=== PATIENT | male | born 1945 | race Caucasian/White ===

== ENCOUNTER 2019-12-22 10:32 | Outpatient (CLI) | payer MEDICARE, SELFPAY ==
[2019-12-22 11:15] VITALS: PULSE 74; O2SAT 88
[2019-12-22 11:20] VITALS: PULSE 72; O2SAT 91
[2019-12-22 11:25] VITALS: PULSE 116; O2SAT 86
[2019-12-22 11:27] LABS: Alveolar/Arterial O2 Gradient 34.3 mmHg; Base Excess ABG 1.6 mEq/l (+/-2.0); Fractional Inspired Oxygen 21 %; Oxygen Content ABG 18.4 %vol (16.0-22.0); Oxygen Saturation ABG 93.9 % (95.0-100.0); Oxyhemoglobin 92.7 % THb (90.0-100.0); PCO2 ABG 40.3 mmHg (35.0-45.0); PO2 ABG 67.2 mmHg (80.0-100.0); Total Hemoglobin 14.1 g/dL (12.0-18.0); pH ABG 7.428 (7.350-7.450)
[2019-12-22 11:30] VITALS: PULSE 118; O2SAT 89
[2019-12-22 11:32] LABS: Device NASAL CANNULA; Site Drawn RIGHT RADIAL
[2019-12-22 11:35] VITALS: PULSE 120; O2SAT 91
[2019-12-22 11:45] VITALS: PULSE 76; O2SAT 91
--- NOTE | 2019-12-22 11:59 | HOMEO2EVAL ---
Home Oxygen Evaluation RC: Home Oxygen (O2) Evaluation Start: 12/22/19 11:53 Freq: Status: Active Protocol: RPE Activity Type Activity Date Activity User E-Sign Co-Sign Detail Recorded Client Recorded Date Recorded By Document 12/22/19 11:20 DJO [id number] 12/22/19 11:58 DJO Document 12/22/19 11:25 DJO [id number] 12/22/19 11:58 DJO 12/22/19 12/22/19 11:20 11:25 Home O2 Evaluation Test Phase Resting Exercise Oxygen Delivery Nasal Cannula Nasal Cannula Oxygen Flow Rate (L/min) 1 1 Pulse Oximetry (90-100 %) 91 86 L Pulse Rate (60-100 beats/min) 72 116 H
== END 2019-12-22 10:33 | disposition home or self-care (01) ==
PROVIDERS: PCP Family Medicine; Visit Provider Internal Medicine Critical Care Medicine
DX: J43.9 Emphysema, unspecified (principal)
CPT/HCPCS: 36600; 82805; 94618

== ENCOUNTER 2021-04-01 08:38 | Inpatient (IN) | payer MEDICARE, SELFPAY ==
[2021-04-01] VITALS (35 sets, daily range): BP systolic 86–134; BP diastolic 52–83; PULSE 42–63; RESP 14–23; TEMP 36.1–36.7; O2SAT 94–100; BMI 44.4
--- NOTE | ~2021-04-01 | XR_ITS ---
EXAMINATION: XR chest 1V DATE: 04/01/2021 09:32 INDICATION: COPD TECHNIQUE: frontal view of the chest was obtained. COMPARISON: Chest radiograph dated 07/29/[address] dated 05/04/2019 FINDINGS: Increased lucency in the upper lung zones, left greater than right with associated architectural dist ortion consistent with given history of emphysema. Mild reticular opacities in the bilateral lower [place] ng zones consistent with atelectasis/scarring. No pleural effusion or pneumothorax. Heart size is nor mal. Enlargement of the central pulmonary arteries consistent with pulmonary arterial hypertension. S mall hiatal hernia which on prior CT contains fat. Several old healed left-sided rib fractures. IMPRESSION: 1. Emphysema with mild bibasilar atelectasis/scarring. 2. Enlargement of the central pulmonary arteries consistent with pulmonary arterial hypertension. Reviewed, dictated and finalized at location A. IMPRESSION: 1. Emphysema with mild bibasilar atelectasis/scarring. 2. Enlargement of the central pulmonary arteries consistent with pulmonary prateek rial hypertension.
--- NOTE | ~2021-04-01 | US_ITS ---
EXAMINATION: US renal BI DATE: 04/02/2021 10:31 INDICATION: Acute kidney injury. TECHNIQUE: Multiple ultrasound grayscale images of the kidneys were obtained. COMPARISON: CT abdomen and pelvis 05/04/2019 FINDINGS: The right kidney measures 11.0 x 6.1 x 5.4 cm. The left kidney measures 10.3 x 5.8 x 5.7 cm. The kidn eys demonstrate normal parenchymal echogenicity. There are cysts in the kidneys measuring up to 8.1 c m on the right. There is no hydronephrosis. The bladder is normal. IMPRESSION: 1. Normal kidney sizes. No hydronephrosis. Reviewed, dictated and finalized at location B.
--- NOTE | ~2021-04-01 | MR_ITS ---
EXAMINATION: MR brain/brain stem wo con DATE: 04/02/2021 10:00 INDICATION: Right hemiparesis. Neurological symptoms. TECHNIQUE: Magnetic resonance imaging (MRI) of the brain and brainstem was performed without intraven ous contrast. Sequences included sagittal and axial T1-weighted FSE, axial diffusion-weighted FS EPI, axial T2*-weighted GRE, axial T2-weighted FLAIR Propeller, and axial T2-weighted Propeller. Apparent diffusion coefficient (ADC) maps were created. COMPARISON: Head CT 04/01/2021, brain MRI 07/29/2018 FINDINGS: There are small acute infarcts in the left frontal lobe and left frontoparietal region. The re are scattered areas of nonspecific increased T2-weighted signal intensity in the cerebral white ma tter. There are small old infarcts in left parietal lobe. There is an old lacunar infarct in right ca udate nucleus. There is no intracranial hemorrhage or abnormal mass lesion. The ventricles are normal in size. The orbits are normal. There are mucous retention cysts in the maxillary sinuses. There is mild mucosal thickening in the paranasal sinuses. IMPRESSION: 1. Small acute infarcts in the left frontal lobe and left frontoparietal region. 2. Small old infarcts in left parietal lobe and right caudate nucleus. 3. Moderate nonspecific cerebral white matter disease, which likely represents chronic small vessel i schemic disease. Reviewed, dictated and finalized at location B. IMPRESSION: 1. Small acute infarcts in the left frontal lobe and left frontoparietal region . 2. Small old infarcts in left parietal lobe and right caudate nucleus. 3. Moderate nonspecific cerebral white matter disease, which likely represents chronic small vessel ischemic disease.
--- NOTE | ~2021-04-01 | CT_ITS ---
EXAMINATION: CT brain wo con DATE: 04/01/2021 09:26 INDICATION: Stroke with right hand numbness. TECHNIQUE: Computed tomography (CT) of the head was performed without intravenous contrast. Sagittal and coronal reconstructions were performed. The mA was adjusted according to patient size. Iterative reconstruction technique was employed. The dose-length product was 605.33 mGy-cm. COMPARISON: Brain MR dated 07/29/18 FINDINGS: No acute intracranial hemorrhage, acute infarction or abnormal extra axial fluid collection. Small ol d lacunar infarct in the left frontal chu radiata. There is mild to moderate scattered white matte r hypoattenuation consistent with chronic small vessel ischemic disease. Symmetric prominence of the sulci and ventricles consistent with mild age-appropriate diffuse cerebral volume loss. No mass/mass effect. The orbits, paranasal sinuses and mastoid air cells are normal. IMPRESSION: 1. No acute intracranial process. 2. Small old lacunar infarct in the left frontal chu radiata. 3. Age-related changes including mild diffuse volume loss and mild to moderate scattered white matter hypoattenuation. Reviewed, dictated and finalized at location A.
--- NOTE | ~2021-04-01 | US_ITS ---
EXAMINATION: US carotid duplex BI DATE: 04/02/2021 10:31 INDICATION: Right hemiparesis. TECHNIQUE: Grayscale, color Doppler, and pulsed Doppler images of the cervical carotid arteries were obtained. The degree of vessel stenosis is placed in one of the following categories: normal, <50%, 5 0-69%, >=70% but less than near-occlusion, near-occlusion, or total occlusion. Note that percent sten osis relative to normal distal artery lumen diameter is indirectly measured from velocity measurement s as described by José Miguel, et al. Radiology 2003; 229:340-346. COMPARISON: Ultrasound 07/29/2018 FINDINGS: RIGHT: The right common carotid artery (CCA) peak systolic velocity (PSV) is 61 cm/s. The right internal car otid artery (ICA) PSV is 62 cm/s. The right ICA end-diastolic velocity (EDV) is 16 cm/s. The right IC A/CCA PSV ratio is 1.0. Grayscale and color Doppler images yield an estimate of <50% diameter reducti on from plaque in the ICA. There is antegrade flow in the right vertebral artery. LEFT: The left CCA PSV is 46 cm/s. The left ICA PSV is 70 cm/s. The left ICA EDV is 19 cm/s. The left ICA/C CA PSV ratio is 1.5. Grayscale and color Doppler images yield an estimate of <50% diameter reduction from plaque in the ICA. There is antegrade flow in the left vertebral artery. IMPRESSION: 1. <50% stenosis in the right internal carotid artery. 2. <50% stenosis in the left internal carotid artery. Reviewed, dictated and finalized at location B.
--- NOTE | 2021-04-01 09:06 | ECG_ITS ---
Measurements Intervals [place] Rate: 54 P: [place]: 0 QRS: -61 QRSD: 125 T: 33 QT: 403 QTc: 384 Interpretive Statements ATRIAL FIBRILLATION WITH SLOW VENTRICULAR RESPONSE LEFT AXIS DEVIATION LEFT BUNDLE BRANCH BLOCK BASELINE ARTIFACT- I, II, III, AVR, AVL, AVF, V1-V6 ABNORMAL ECG Electronically Signed On 04-01-2021 14:18:37 CDT by Herberth Martinez D.O.
[2021-04-01 09:20] LABS: Basophils Absolute Auto 0.1 K/mm3 (0.0-0.1); Basophils Percent Auto 0.7 % (0.2-1.2); Eosinophils Absolute Auto 0.1 K/mm3 (0-0.3); Eosinophils Percent Auto 1.6 % (0-4.4); Hematocrit 47.1 % (42.0-52.0); Immature Granulocyte Absolute 0.02 K/mm3 (0.00-0.031); Immature Granulocyte Percent A 0.3 % (0-0.5); Lymphocytes Absolute Auto 1.47 K/mm3 (0.9-3.2); Lymphocytes Percent Auto 19.3 % (18.3-44.2); Mean Corpuscular HGB Conc 31.8 g/dl (32-36); Mean Corpuscular Hemoglobin 32.1 pg (26-34); Mean Corpuscular Volume 100.6 fl (80-100); Mean Platelet Volume 10.6 fl (7.4-10.4); Monocytes Absolute Auto 0.8 K/mm3 (0.1-0.6); Monocytes Percent Auto 10.3 % (2.6-8.5); Neutrophils Absolute Auto 5.2 K/mm3 (1.3-6.7); Neutrophils Percent Auto 67.8 % (45.5-73.1); Platelet Count Result 181 k/mm3 (150-375); Red Blood Count 4.68 M/mm3 (4.6-6.20); Red Cell Distribution Width 15.3 % (11.5-14.5); White Blood Count 7.6 K/mm3 (4.5-10.0)
[2021-04-01 09:29] LABS: INR 1.5; Prothrombin Time 18.3 Seconds (11.1-14.7)
[2021-04-01 09:30] LABS: Partial Thromboplastin Time 30.5 SECONDS (22.3-36.8)
[2021-04-01 09:34] LABS: Glucose Point of Care 105 mg/dl (65-105)
[2021-04-01 09:36] LABS: Anion Gap 5 mmol/L (8-16); Blood Urea Nitrogen 37 mg/dL (9-20); Calcium 9.6 mg/dL (8.4-10.2); Carbon Dioxide 29 mmol/L (22-30); Chloride 106 mmol/L (98-107); Estimated CRCL calculation 38 ml/min; Estimated Glomerular Filt Rate 29; Glucose 106 mg/dL (75-110); Potassium 4.6 mmol/L (3.4-5.0); Sodium 140 mmol/L (137-145)
[2021-04-01 09:48] LABS: Troponin I < 0.012 ng/mL (0.000-0.034)
[2021-04-01] MEDS: SODIUM CHLORIDE 0.9% IV 500 ML 999 ML (10:21)
[2021-04-01] MEDS: SODIUM CHLORIDE 0.9% IV 1,000 ML 999 ML IV CONT (10:34)
--- NOTE | 2021-04-01 12:19 | ED.GENADULT ---
HPI - General Adult General Chief complaint: Neuro Symptoms/Deficit Stated complaint: R HAND NUMBNESS Time Seen by Provider: 04/01/21 10:19 Source: patient, family, RN notes reviewed and old records reviewed Mode of arrival: ambulatory Limitations: no limitations History of Present Illness HPI narrative: Patient is 76-year-old male who presents to emergency department for evaluation of right upper extremity weakness noticed this morning patient had been painting with this arm yesterday patient notes he had felt fine yesterday on arrival patient presents with bradycardia and low blood pressure patient denies any vomiting diarrhea illness injury or trauma or similar occurrence in the past patient denying any pain Related Data Home Medications Medication Instructions Recorded Confirmed aspirin 81 mg tablet,delayed 81 mg PO DAILY 09/21/19 04/01/21 release cholecalciferol (vitamin D3) 10 400 unit PO DAILY 09/21/19 04/01/21 mcg (400 unit) capsule cyanocobalamin (vitamin B-12) 1,000 mcg PO DAILY 09/21/19 04/01/21 1,000 mcg tablet magnesium oxide 500 mg tablet 500 mg PO DAILY 09/21/19 04/01/21 omeprazole 20 mg capsule,delayed 20 mg PO DAILY 09/21/19 04/01/21 release potassium chloride 20 mEq 20 meq PO DAILY 09/21/19 04/01/21 tablet,extended release furosemide 40 mg tablet 40 mg PO BID tablet 09/30/19 04/01/21 calcium carbonate 500 mg calcium 500 mg PO DAILY 12/14/19 04/01/21 (1,250 mg) capsule rosuvastatin 40 mg tablet 40 mg PO DAILY 03/23/20 04/01/21 Allergies Allergy/AdvReac Type Severity Reaction Status Date / Time levofloxacin Allergy Unknown unk Verified 04/01/21 09:05 Penicillins Allergy Unknown unk Verified 04/01/21 09:05 [facility] Past Medical History Medical History (Updated 04/01/21 @ 12:34 by Kirill Salceod PA-C) Acute sinusitis Candidiasis of other urogenital sites Chronic kidney disease (CKD) stage G3b/A1, moderately decreased glomerular filtration rate (GFR) between 30-44 mL/min/1.73 square meter and albuminuria creatinine ratio less than 30 mg/g Chronic respiratory failure COPD exacerbation History of tobacco abuse Obstructive sleep apnea Severe chronic obstructive pulmonary disease Supplemental oxygen dependent Family History Family History (Updated 05/28/19 @ 14:05 by DOCTOR UNKNOWN) Mother Patient's mother is , Onset Age: 85 Diabetes mellitus Hypertension Sibling Patient's brother is , Onset Age: 64 Family history of cardiovascular disease Father Family history of primary malignant neoplasm of liver, Onset Age: 31 Social History Social History Social History: . Smoking packs per day: 1 Smoking cigarettes per day: 20.0 Years smoked: 40 Smoking pack-years: 40.00 Smoking status: Former smoker Tobacco type: cigarettes Smoking end date: 11/10/14 Alcohol intake: never Gender identity (if verbalized by the patient): Male Exam Narrative: Exam Narrative: GENERAL: Well-appearing, obese, and in no acute distress. HEAD: Normocephalic, atraumatic. EYES: PERRLA and EOMI. ENT: Nares clear, no rhinorrhea or epistaxis. Mucous membranes moist. NECK: Supple. No adenopathy or masses. No carotid bruits or JVD CHEST: Clear to auscultation. No respiratory distress. No wheezes rales or rhonchi HEART: Irregularly irregular rate and rhythm. No murmur heard. Normal peripheral pulses. ABDOMEN: Soft, nontender, nondistended EXTREMITIES: Normal range of motion. No edema. SKIN: Warm, dry, no rash. NEURO: No focal deficits. Alert and oriented x3. Cranial nerves II through XII grossly intact. Normal speech. Cerebellar intact. Equal fur matcher. Motor and sensory intact and symmetrical in the extremities. PSYCH: Normal mood and affect. Course Course Emergency Course: Patient presented with bradycardia atrial fibrillation likely attributed to acute kidney injury has been hydrated
--- NOTE | 2021-04-01 14:19 | ADMGEN ---
This patient, Yosef Rodríguez, was admitted to Medical Room 343-01. Patient/family oriented to hospital policies and general routines including ID bracelet, bed and alarms, visiting hours, pain management, procedures, bathroom and other care routines, personal items, smoking policy, room service/diet, and visiting hours. Information on how to activate the Rapid Response Team has been discussed. Patient/Family are encouraged to report perceived risks to care and to ask questions if they do not understand what they are told or what they should do.
[2021-04-01] MEDS: LACTATED RINGERS 1,000 ML 75 ML IV CONT (14:21)
--- NOTE | 2021-04-01 15:48 | PM.IMHP ---
H&P: HPI History of Present Illness Date/Time: 04/01/21 15:48 this is a 76-year-old male patient with past medical history of atrial fibrillation and congestive heart failure. The patient takes his medications as prescribed. The patient was painting a door yesterday and was taking his time pain the door. It was hot outside and he did have his air on. The patient was diaphoretic yesterday. The patient has COPD and has chronic hypoxia. The patient wears oxygen at 1 to 1.5 L daily. The patient woke up this morning and had numbness and tingling to his right hand and some pain to his right shoulder this morning. He had no slurred speech or difficulty walking. No facial droop. The patient stated that he had a TIA in the past. His symptoms have resolved. He debated on whether not to come to the emergency room or not. He stated that he was told last time that he should come to the ER if he has any type of symptoms immediately. He had no nausea vomiting or diarrhea. No fever here. Patient was found to be in AFib with bradycardia. And low blood pressure. Patient has a history of having some chronic kidney disease. Creatinine 2.2 and his last creatinine was 1.55. His baseline is anywhere from 1.5-1.7. The patient has chronic renal failure stage 3. His story editor had been called per ED provider and suggested that the Coreg Dose be cut in half. the patient stated he did have some mild dizziness this morning. No chest pain. troponin was found to be negative. Chest x-ray was read as emphysema mild bibasilar atelectasis/scarring. Enlargement of the central pulmonary arteries consistent pulmonary artery hypertension. Head CT was read as no acute intracranial process. Small old lacunar infarction in left frontal chu radiata. age-related changes . patient was given IV fluids in the emergency room. The patient no longer has any numbness or tingling or any that showed a pain. Patient is being admitted to observation on the date of service of 04/01/2021. Chief Complaint: right on numbness Review of Systems Review of Systems: All systems reviewed & are unremarkable except as noted in HPI and below Constitutional: Constitutional: Reports as per HPI and Reports no additional constitutional complaints Eyes: Eyes: Reports as per HPI and Reports no additional eye complaints ENT: Reports system reviewed and no additional complaints, except as documented and Reports Normal hearing present Cardiovascular: Cardiovascular: Reports no additional cardiovascular complaints Respiratory: Respiratory: Reports no additional respiratory complaints and Reports no additional respiratory complaints Gastrointestinal: Gastrointestinal: Reports as per HPI and Reports no additional gastrointestinal complaints Musculoskeletal: Musculoskeletal: Reports no additional musculoskeletal complaints Integumentary/Breasts: Skin/Breast: Reports system reviewed and no additional complaints, except as docu and Reports as per HPI Neurologic: Reports system reviewed and no additional complaints, except as documented, Reports as per HPI and Reports Normal hearing present Psychiatric: Psychiatric: Reports no additional psychiatric complaints and Reports as per HPI Endocrine: Endocrine: Reports no additional endocrine complaints Hematologic/Lymphatic: Hematologic/Lymphatic: Reports no additional hematologic/lymphatic complaints Allergic/Immunologic: Allergic/Immunologic: Reports no additional allergic/immunologic complaints [facility] Past Medical History Medical History (Updated 04/01/21 @ 16:03 by Kindra Kelsey NP) Acute sinusitis Atrial fibrillation Candidiasis of other urogenital sites Chronic kidney disease (CKD) stage G3b/A1, moderately decreased glomerular filtration rate (GFR) between 30-44 mL/min/1.73 square meter and albuminuria creatinine ratio less than 30 mg/g Chronic respiratory failure COPD exacerbation Emphysematous bleb History of CVA (cerebrovascular ac
[2021-04-01] MEDS: MAGNESIUM OXIDE 400 MG TABLET PO (16:45)
[2021-04-01] MEDS: CALCIUM CARBONATE (OSCAL) 500 MG TABLET 1000 MG PO (16:45)
[2021-04-01] MEDS: APIXABAN 5 MG TABLET PO (16:45)
[2021-04-01 19:05] LABS: Add Urine Microscopic? NO; Appearance Urine Clear (Clear); Bilirubin Urine Negative (Negative); Blood Urine Negative (Negative); Color Urine Yellow (Yellow); Glucose Urine UA Negative (Negative); Ketones Urine Negative (Negative); Leukocyte Esterase Ur Negative LEU/UL (Negative); Nitrate Urine Negative (Negative); Protein Urine Negative (Negative); Specific Grav Ur 1.014 (1.001-1.035); Urobilinogen Urine Negative mg/dL (<2.0)
[2021-04-01] MEDS: BUDESONIDE RESPULE NEB 0.5 MG/2 ML AMP INHALATION (19:57)
[2021-04-01] MEDS: FAMOTIDINE 20 MG/2 ML VIAL IV PUSH (20:27)
[2021-04-01] MEDS: AMITRIPTYLINE HCL 10 MG TABLET PO (20:27)
--- NOTE | 2021-04-01 21:35 | PHAR ---
Sangitaa 15 mcg/2 mL Solution For Nebulization see in Pharmacy and returned to 3 medical RN at window
[2021-04-02] VITALS (17 sets, daily range): BP systolic 112–130; BP diastolic 68–98; PULSE 35–61; RESP 14–18; TEMP 36.4–36.6; O2SAT 96–100
--- NOTE | 2021-04-02 | ECHO_ITS ---
Patient Info Name: Yosef Rodríguez Age: 76 years : 1945 Gender: Male Ht: 70 in Wt: 309 lbs BSA: 2.70 m2 HR: 61 bpm BP: 122 / 68 mmHg Heart Rhythm: Atrial Fibrillation Technical Quality: Poor Exam Date: 04/02/2021 8:22 AM Exam Location: [facility] Patient Status: Inpatient Admit Date: 04/01/2021 Staff Ordering Physician: Kindra Kesley NP Hydrodynamicist: Stella Richey RDCS Attending Provider: Jaci Oro MD Referring Physician: Low ABDI; Exam Type: CA echo dop color flow w con Study Info Indications - NEUROLOGICAL SYMPTOMS Complete two-dimensional, color flow and Doppler transthoracic echocardiogram is performed with contrast to opacify the left ventricle and to improve the deliniation of the left ventricle endocardial borders. Reason for Poor Study: patient body habitus Summary 1. Left ventricular chamber dimension is normal. 2. Left ventricular systolic function is normal, estimated at 60-65%. 3. Definity contrast injected to improve visualization. 4. Severe biatrial dilation. 5. Mild tricuspid, aortic and pulmonic regurgitation. Left Ventricle Left ventricular chamber dimension is normal. Left ventricular systolic function is normal, estimated at 60-65%. The left ventricular diastolic function is indeterminate. Definity contrast injected to improve visualization. Right Ventricle Right ventricular chamber dimension is normal. Left Atria Left atrial chamber dimension is severely enlarged. Right Atria Right atrial chamber dimension is severely enlarged. Aortic Valve The aortic valve is normal. There is mild aortic valve regurgitation. Pulmonic Valve The pulmonic valve is normal. There is mild pulmonic regurgitation. Mitral Valve The mitral valve has normal leaflets. Tricuspid Valve The tricuspid valve leaflets are normal. There is mild tricuspid valve regurgitation. Pericardium/Pleural The pericardium appears normal. Aorta The aortic root size at the sinus of Valsalva is normal. Left Ventricular Outflow Tract Name Value Normal LVOT 2D LVOT Diameter 2.05 cm LVOT Doppler LVOT Peak Gradient 2 mmHg LVOT Mean Gradient 1 mmHg LVOT VTI 22.27 cm LVOT VTI/AV VTI Ratio 0.67 LVOT Stroke Volume 73.47 ml LVOT CO 3.68 l/min LVOT CI 1.36 L/min/m2 Pulmonic Valve Name Value Normal RVOT Doppler RVOT Peak Gradient 3 mmHg PV Doppler PV Peak Gradient 4 mmHg Mitral Valve Name
[2021-04-02 05:48] LABS: Basophils Percent Auto 0.5 % (0.2-1.2); Eosinophils Absolute Auto 0.1 K/mm3 (0-0.3); Eosinophils Percent Auto 2.1 % (0-4.4); Hemoglobin 13.7 g/dL (14.0-18.0); Immature Granulocyte Absolute 0.02 K/mm3 (0.00-0.031); Immature Granulocyte Percent A 0.3 % (0-0.5); Lymphocytes Absolute Auto 1.43 K/mm3 (0.9-3.2); Lymphocytes Percent Auto 22.9 % (18.3-44.2); Mean Corpuscular HGB Conc 31.9 g/dl (32-36); Mean Corpuscular Volume 100.5 fl (80-100); Mean Platelet Volume 10.3 fl (7.4-10.4); Monocytes Absolute Auto 0.7 K/mm3 (0.1-0.6); Monocytes Percent Auto 10.4 % (2.6-8.5); Neutrophils Percent Auto 63.8 % (45.5-73.1); Platelet Count Result 150 k/mm3 (150-375); Red Blood Count 4.28 M/mm3 (4.6-6.20); Red Cell Distribution Width 15.1 % (11.5-14.5); White Blood Count 6.2 K/mm3 (4.5-10.0)
[2021-04-02 05:59] LABS: Lactic Acid Reflex 1.2 mmol/L (0.7-2.1)
[2021-04-02 06:01] LABS: Alanine Aminotransferase 17 U/L (4-50); Albumin Level 3.1 g/dL (3.5-5.1); Alkaline Phosphatase 79 U/L (38-126); Anion Gap 0 mmol/L (8-16); Aspartate Amino Transferase 25 U/L (17-59); Bilirubin,Total 0.7 mg/dL (0.2-1.3); Blood Urea Nitrogen 26 mg/dL (9-20); Calcium 8.8 mg/dL (8.4-10.2); Carbon Dioxide 27 mmol/L (22-30); Chloride 110 mmol/L (98-107); Estimated CRCL calculation 52 ml/min; Estimated Glomerular Filt Rate 42; Glucose 93 mg/dL (75-110); Potassium 3.8 mmol/L (3.4-5.0); Sodium 137 mmol/L (137-145)
[2021-04-02] MEDS: LACTATED RINGERS 1,000 ML 75 ML IV CONT (06:24)
[2021-04-02] MEDS: BUDESONIDE RESPULE NEB 0.5 MG/2 ML AMP INHALATION ×2 (07:49→19:54)
[2021-04-02] MEDS: PERFLUTREN LIPID MICROSPHERES 1.5 ML VIAL DILUTED TO 10 ML TOTAL VOLUME IV PUSH (09:05)
[2021-04-02] MEDS: CHOLECALCIFEROL 400 UNITS TABLET (VIT D) PO (09:11)
[2021-04-02] MEDS: MAGNESIUM OXIDE 400 MG TABLET PO ×2 (09:11→17:03)
[2021-04-02] MEDS: CYANOCOBALAMIN 1,000 MCG TABLET 1000 MCG PO (09:11)
[2021-04-02] MEDS: PANTOPRAZOLE 40 MG TABLET PO (09:11)
[2021-04-02] MEDS: allopurinoL 100 MG TABLET PO (09:11)
[2021-04-02] MEDS: APIXABAN 5 MG TABLET PO ×2 (09:11→17:02)
[2021-04-02] MEDS: CALCIUM CARBONATE (OSCAL) 500 MG TABLET 1000 MG PO ×3 (09:11→17:03)
[2021-04-02] MEDS: ROSUVASTATIN 10 MG TABLET 40 MG PO (09:11)
--- NOTE | 2021-04-02 14:04 | PM.IMPN ---
Progress Note: A&P Assessment and Plan (1) Acute CVA (cerebrovascular accident): Code(s): I63.9 - Cerebral infarction, unspecified Status: Acute Assessment and Plan: Presented with weakness of right upper extremity lasting approximately 5 hours, which has resolved. Head CT showed no acute intracranial process with evidence of small old lacunar infarct. Follow-up brain MRI showed small acute infarcts in the left frontal lobe and left frontoparietal region. He does not appear to have any deficits. Echocardiogram and carotid doppler reviewed. Appreciate neurology consultation Appreciate PT/OT eval. He has declined ST eval as he has no issues with dysphagia Will obtain lipid panel Administer aspirin. He takes aspirin 81 mg daily at home. (2) Atrial fibrillation: Code(s): I48.91 - Unspecified atrial fibrillation Status: Chronic Assessment and Plan: Telemetry reviewed. He is bradycardic down to the 30s, mostly ranging from 45-50. He is asymptomatic. Appreciate cardiology consultation Continue Eliquis Carvedilol is on hold given bradycardia. (3) Hyperlipidemia: Code(s): E78.5 - Hyperlipidemia, unspecified Status: Chronic Assessment and Plan: Check lipid panel Continue rosuvastatin 40 mg daily (4) Acute on chronic kidney failure: Code(s): N17.9 - Acute kidney failure, unspecified; N18.9 - Chronic kidney disease, unspecified Status: Acute Assessment and Plan: Baseline creatinine ranges from 1.5-1.7. Creatinine is elevated 2.21 arrival. Suspect prerenal etiology secondary to dehydration. Renal function has improved with IV fluids and creatinine is 1.6 today. Renal ultrasound reviewed with normal kidneys and no evidence of hydronephrosis. Discontinue IV fluids. Patient is tolerating oral intake. Monitor renal function closely and renally dose medications. (5) Acute dehydration: Code(s): E86.0 - Dehydration Status: Acute Assessment and Plan: Secondary to strenuous physical activity and poor oral intake, in combination with diuretics. He has been adequately rehydrated with IV fluids. Discontinue fluids. Encourage p.o. intake (6) Chronic respiratory failure: Code(s): J96.10 - Chronic respiratory failure, unspecified whether with hypoxia or hypercapnia Status: Acute Assessment and Plan: Multifactorial secondary to COPD, emphysematous bleb, ANTONIO. He is established with pulmonology. He is maintaining adequate oxygen saturations on 1 L per nasal cannula, consistent with his baseline Continue supplemental O2 as needed with goal saturation 90% or above (7) Congestive heart failure, unspecified: Code(s): I50.9 - Heart failure, unspecified Status: Acute Assessment and Plan: Appears clinically compensated. IV fluids discontinued. Monitor volume status closely Resume Lasix for tomorrow, as well as potassium supplementation Monitor intake and output Heart healthy diet (8) Essential (primary) hypertension: Code(s): I10 - Essential (primary) hypertension Status: Acute Assessment and Plan: Blood pressures were soft upon presentation. Blood pressures reviewed and are well controlled today. Last BP 122/68. Lisinopril, amlodipine and coreg on hold Monitor BP trends and adjust medication regimen as needed (9) Obstructive sleep apnea: Code(s): G47.33 - Obstructive sleep apnea (adult) (pediatric) Status: Acute Assessment and Plan: Continue BiPAP at night Subjective Date/time seen: 04/02/21 14:04 Interval history: Date of service: 04/02/2021 Yosef Rodríguez is a 76-year-old male with history of atrial fibrillation on chronic anticoagulation, CKD stage 3, chronic respiratory failure on chronic 1 L O2, history of CVA, and hyperlipidemia who is seen in follow-up for acute CVA. He is feeling well and has no compla
--- NOTE | 2021-04-02 14:15 | ECG_ITS ---
Measurements Intervals [place] Rate: 47 P: [place]: 0 QRS: -59 QRSD: 128 T: 74 QT: 421 QTc: 376 Interpretive Statements ATRIAL FIBRILLATION WITH SLOW VENTRICULAR RESPONSE LEFT AXIS DEVIATION LEFT BUNDLE BRANCH BLOCK BASELINE WANDER- I, III, AVR, AVL, AVF, V1-V3 ABNORMAL ECG Electronically Signed On 04-02-2021 14:41:47 CDT by Herberth Martinez D.O.
--- NOTE | 2021-04-02 14:55 | PM.CNCAR ---
Assessment and Plan Assessment and plan (1) Bradycardia: Code(s): R00.1 - Bradycardia, unspecified Status: Acute Assessment and Plan: Atrial fibrillation with slow ventricular response per EKG. Patient is asymptomatic with this bradycardia denying lightheadedness, dizziness, syncope. This is likely not a new problem as patient states he sometimes notes that his heart rate is in the 30s and 40s when he checks his heart rate at home. He was on carvedilol at home which has been stopped due to his hypotension and bradycardia. I would continue to hold carvedilol at this time. We will continue to monitor him on telemetry. (2) Atrial fibrillation: Code(s): I48.91 - Unspecified atrial fibrillation Status: Chronic Assessment and Plan: Chronic atrial fibrillation on systemic anticoagulation with apixaban. He is rate controlled and in fact bradycardic at times despite any pharmacologic agents. (3) Congestive heart failure, unspecified: Code(s): I50.9 - Heart failure, unspecified Status: Acute Assessment and Plan: Echocardiogram in November of 2016 demonstrated a left ventricular ejection fraction of 66% with grade 3-4 diastolic dysfunction. Repeat echocardiogram today demonstrated a similar ejection fraction of 60-65%. He was on furosemide 40 mg b.i.d. buy this was held due to his hypotension and dehydration and has now been resumed. We will continue to monitor clinical signs of CHF, BMP. (4) Hyperlipidemia: Code(s): E78.5 - Hyperlipidemia, unspecified Status: Chronic Assessment and Plan: Lipid panel from December 2019 total cholesterol 239, HDL 26, triglycerides 109, LDL 192. Continue rosuvastatin 40 mg daily. Will obtain lipid panel at next office visit in about 1 month. (5) Acute on chronic kidney failure: Code(s): N17.9 - Acute kidney failure, unspecified; N18.9 - Chronic kidney disease, unspecified Status: Acute Assessment and Plan: Stage III CKD with baseline creatinine 1.5 to 1.7. serum creatinine 2.2 on arrival down trending to 1.6 today. IV fluids have been stopped at this point and furosemide has been resumed. Renal ultrasound normal. We will continue to monitor BMP daily. (6) Acute CVA (cerebrovascular accident): Code(s): I63.9 - Cerebral infarction, unspecified Status: Acute Assessment and Plan: Patient presenting with right-sided upper extremity weakness and numbness. MRI demonstrated: 1. Small acute infarcts in the left frontal lobe and left frontoparietal region. 2. Small old infarcts in left parietal lobe and right caudate nucleus. 3. Moderate nonspecific cerebral white matter disease, which likely represents chronic small vessel ischemic disease. Will appreciate Neurology consultation. (7) Acute dehydration: Code(s): E86.0 - Dehydration Status: Acute Assessment and Plan: Probably secondary to poor oral intake, diuretics. Patient has been rehydrated with IV fluids and Kidney function is normalizing per laboratory studies. History of Present Illness History of Present Illness Consult date/time: Date of service 04/02/21 14:55 cardiology consultation for bradycardia. This is a 76-year-old male with a past medical history of atrial fibrillation on anticoagulation, hypertension, diastolic heart failure, COPD on 1 L home O2, ANTONIO on BiPAP, dyslipidemia, CVA, morbid obesity. He initially presented through the emergency department with complaints of right-sided weakness starting yesterday morning. He states that when he woke up he took off his BiPAP and attempted to place on the bedside table but noticed that his right hand was too weak to do so and also notes that his right arm and hand were numb. Given his past experience with a CVA he proceeded to the emergency room for evaluation. He underwent a stroke evaluation and MRI performed on 04/01/2021 showed acute small infarct
[2021-04-02] MEDS: ASPIRIN 81 MG ENTERIC TABLET PO (14:58)
[2021-04-02] MEDS: POTASSIUM CHLORIDE 20 MEQ TABLET.ER PO (17:03)
--- NOTE | 2021-04-02 17:29 | WPDNEURCNPN ---
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 Atrial fibrillation 2. Congestive heart failure 3. COPD with chronic hypoxia and does wear oxygen at 1 to 1.5 later daily he developed numbness and tingling to his right hand and pain to his right shoulder in the morning with no slurred speech or difficulties in walking he has had TIA in the past by the time he came the symptomatology was resolved he had no associated generalized symptomatology in the emergency room he was found to be in AFib with bradycardia and low blood pressure along with he has the history of chronic renal disease with creatinine 2.2 has been in chronic renal failure stage 3 cardiologists for called from the emergency room and he was started on Coreg the dose has to be cut in half his troponins were negative chest x-ray was compatible with emphysema with mild bibasilar atelectasis and enlargement of the central pulmonary arteries consistent with the pulmonary artery hypertension but the CT scan of the head was negative for any acute process except the small old lacunar infarct in left frontal coronal radiata by the time he came to the floor he had no more tingling and numbness, evaluation up until now documented echocardiogram with severe by a marcela at [facility] enlargement with mild tricuspid and aortic and pulmonic regurgitation MRI of the brain with small acute infarct in the left frontal lobe and left frontoparietal region in addition to old infarct in left parietal lobe and right caudate nucleus carotid ultrasound with less than 50% stenosis bilaterally and renal her ultrasound negative routine lab not significant, 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 already for atrial fibrillation with slow ventricular response as per EKG patient is already on systemic anticoagulation with apixaban his ejection fraction is 60 to 65% and the furosemide was Ho held because of the hypotension and dehydration is stills cholesterol is high with a HDL only 26 Review of Systems Review of Systems: All systems reviewed & are unremarkable except as noted in HPI and below PMFSH Past Medical History Medical History Acute sinusitis Atrial fibrillation Candidiasis of other urogenital sites Chronic kidney disease (CKD) stage G3b/A1, moderately decreased glomerular filtration rate (GFR) between 30-44 mL/min/1.73 square meter and albuminuria creatinine ratio less than 30 mg/g Chronic respiratory failure COPD exacerbation Emphysematous bleb History of CVA (cerebrovascular accident) History of tobacco abuse Hyperlipidemia Obstructive sleep apnea Severe chronic obstructive pulmonary disease Supplemental oxygen dependent Surgical History Surgical History H/O foot surgery Hammer toe surgery on the 2nd and 3rd toe on the right foot. H/O hernia repair History of appendectomy History of lung surgery extraction of a blood that was grapefruit size from the right lung. Family History Family History Mother Patient's mother is , Onset Age: 85 Diabetes mellitus Hypertension Sibling Patient's brother is , Onset Age: 64 Family history of cardiovascular disease Father Family history of primary malignant neoplasm of liver, Onset Age: 31 Social History Social History Social History: . the patient's Annabel is a durable power client server developer for healthcare. The patient desires to be a full code. They have 2 children together. 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
[2021-04-02] MEDS: AMITRIPTYLINE HCL 10 MG TABLET PO (21:11)
[2021-04-03] VITALS (13 sets, daily range): BP systolic 124–142; BP diastolic 79–91; PULSE 37–109; RESP 16–20; TEMP 35.8–36.2; O2SAT 90–100
[2021-04-03] MEDS: BUDESONIDE RESPULE NEB 0.5 MG/2 ML AMP INHALATION ×2 (08:23→20:19)
[2021-04-03 08:58] LABS: Hematocrit 44.5 % (42.0-52.0); Hemoglobin 14.1 g/dL (14.0-18.0)
[2021-04-03] MEDS: PANTOPRAZOLE 40 MG TABLET PO (09:06)
[2021-04-03] MEDS: allopurinoL 100 MG TABLET PO (09:06)
[2021-04-03] MEDS: ASPIRIN 81 MG ENTERIC TABLET PO (09:06)
[2021-04-03] MEDS: APIXABAN 5 MG TABLET PO ×2 (09:06→16:30)
[2021-04-03] MEDS: ROSUVASTATIN 10 MG TABLET 40 MG PO (09:06)
[2021-04-03] MEDS: CALCIUM CARBONATE (OSCAL) 500 MG TABLET 1000 MG PO ×3 (09:06→16:30)
[2021-04-03] MEDS: CYANOCOBALAMIN 1,000 MCG TABLET 1000 MCG PO (09:06)
[2021-04-03] MEDS: MAGNESIUM OXIDE 400 MG TABLET PO ×2 (09:06→16:30)
[2021-04-03] MEDS: CHOLECALCIFEROL 400 UNITS TABLET (VIT D) PO (09:06)
[2021-04-03] MEDS: FUROSEMIDE 40 MG TABLET PO ×2 (09:06→16:30)
[2021-04-03 09:11] LABS: Anion Gap 6 mmol/L (8-16); Blood Urea Nitrogen 23 mg/dL (9-20); Carbon Dioxide 30 mmol/L (22-30); Chloride 106 mmol/L (98-107); Estimated CRCL calculation 59 ml/min; Estimated Glomerular Filt Rate 50; Glucose 145 mg/dL (75-110); Potassium 4.3 mmol/L (3.4-5.0); Sodium 142 mmol/L (137-145)
--- NOTE | 2021-04-03 10:03 | WPDNEUROPN ---
Objective Data Vital Signs Vital Signs: Vital Signs - 24 hr 04/02/21 12:00 04/02/21 15:00 04/02/21 16:00 Temperature 36.4 C L Pulse Rate 35 L 61 50 L Respiratory Rate 16 Blood Pressure 112/98 H Pulse Oximetry 97 04/02/21 19:56 04/02/21 20:00 04/02/21 20:02 Temperature Pulse Rate 55 L 43 L 51 L Respiratory Rate 16 16 Blood Pressure Pulse Oximetry 96 98 04/02/21 21:12 04/02/21 23:09 04/03/21 00:00 Temperature 36.6 C Pulse Rate 54 L 52 L 37 L Respiratory Rate 16 Blood Pressure 130/86 Pulse Oximetry 98 98 04/03/21 04:00 04/03/21 05:37 04/03/21 08:00 Temperature 36.2 C L Pulse Rate 37 L 53 L 48 L Respiratory Rate 18 Blood Pressure 130/79 Pulse Oximetry 100 04/03/21 08:26 04/03/21 08:36 Temperature Pulse Rate 48 L 43 L Respiratory Rate 16 20 Blood Pressure Pulse Oximetry 98 Intake/Output Intake/Output: Intake & Output 03/31/21 04/01/21 04/02/21 04/03/21 23:59 23:59 23:59 23:59 Intake Total 2730 2360 780 Output Total 200 750 150 Balance 2530 1610 630 Meds/Results Medications: Active Medications Generic Name Dose Route Start Last Admin Trade Name Freq PRN Reason Stop Dose Admin Allopurinol 100 mg 04/02/21 09:00 04/03/21 09:06 Allopurinol 100 Mg Tablet PO 100 mg DAILY ALEXANDREA Administration Amitriptyline HCl 10 mg 04/01/21 21:00 04/02/21 21:11 Amitriptyline Hcl 10 Mg Tablet PO 10 mg HS ALEXANDREA Administration Apixaban 5 mg 04/01/21 17:00 04/03/21 09:06 Apixaban 5 Mg Tablet PO 5 mg BID ALEXANDREA Administration Aspirin 81 mg 04/02/21 14:25 04/03/21 09:06 Aspirin 81 Mg Enteric Tablet PO 81 mg QAM ALEXANDREA Administration Budesonide 0.5 mg 04/01/21 17:00 04/03/21 08:23 Budesonide Respule Neb 0.5 Mg/2 Ml Amp INHALATION 0.5 mg BID ALEXANDREA Administration Calcium Carbonate 1,000 mg 04/01/21 17:00 04/03/21 09:06 Calcium Carbonate (Oscal) 500 Mg Tablet PO 1,000 mg TID ALEXANDREA Administration Cyanocobalamin 1,000 mcg 04/02/21 09:00 04/03/21 09:06 Cyanocobalamin 1,000 Mcg Tablet PO 1,000 mcg DAILY ALEXANDREA Administration Dextrose 12.5 gm 04/01/21 12:36 Dextrose 50% 25 Gm/50 Ml Syringe IV PUSH PRN PRN Hypoglycemia Protocol Furosemide 40 mg 04/03/21 09:00 04/03/21 09:06 Furosemide 40 Mg Tablet PO 40 mg BID ALEXANDREA Administration Glucagon 1 mg 04/01/21 12:36 Glucagon For Inj 1 Mg Vial IM PRN PRN Hypoglycemia Protocol Ipratropium Lesage 0.5 mg 04/01/21 16:07 Ipratropium Br 0.02% Inh Soln 0.5 Mg/2.5 Ml Vial INHALATION Q6H PRN shortness of breath or wheezing Magnesium Oxide 400 mg 04/01/21 17:00 04/03/21 09:06 Magnesium Oxide 400 Mg Tablet PO 400 mg BID ALEXANDREA Administration Ondansetron HCl 4 mg 04/01/21 12:36 Ondansetron Inj 4 Mg/2 Ml Vial IV PUSH Q4H PRN Nausea Pantoprazole Sodium 40 mg 04/02/21 09:00 04/03/21 09:06 Pantoprazole 40 Mg Tablet PO 40 mg QAM ALEXANDREA Administration Potassium Chloride 20 meq 04/02/21 17:00 04/02/21 17:03 Potassium Chloride 20 Meq Tablet.Er PO 20 meq [id number] ALEXANDREA Administration Rosuvastatin Calcium 40 mg 04/02/21 09:00 04/03/21 09:06 Rosuvastatin 10 Mg Tablet PO 40 mg DAILY ALEXANDREA Administration Vitamin D 400 units 04/02/21 09:00 04/03/21 09:06 Cholecalciferol 400 Units Tablet (Vit D) PO 400 units DAILY ALEXANDREA Administration Radiology Results: ITS Impressions Head CT 04/01/21 09:30 IMPRESSION: 1. No acute intracranial process. 2. Small old lacunar infarct in the left frontal chu radiata. 3. Age-related changes including mild diffuse volume loss and mild to moderate scattered white matter hypoattenuation. Chest X-Ray 04/01/21 09:56 IMPRESSION: 1. Emphysema with mild bibasilar atelectasis/scarring. 2. Enlargement of the central pulmonary arteries consistent with pulmonary arterial hypertension. Brain MRI 04/02/21 10:11 ADRIAN
--- NOTE | 2021-04-03 14:31 | PM.IMPN ---
Progress Note: A&P Assessment and Plan (1) Acute CVA (cerebrovascular accident): Code(s): I63.9 - Cerebral infarction, unspecified Status: Acute Assessment and Plan: Presented with weakness of right upper extremity which has resolved. Head CT showed no acute intracranial process with evidence of small old lacunar infarct. Follow-up brain MRI showed small acute infarcts in the left frontal lobe and left frontoparietal region. He does not appear to have any neurologic deficits. Echocardiogram and carotid doppler reviewed. Appreciate neurology consultation Appreciate PT/OT eval. He has declined ST eval as he has no issues with dysphagia Continue aspirin and statin (2) Bradycardia: Code(s): R00.1 - Bradycardia, unspecified Status: Acute Assessment and Plan: He is in atrial fibrillation with HR typically in the 40-50s, but down to the low 30s. He is asymptomatic. Telemetry reviewed. Beta cyndie on hold Cardiology following. 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 Continue Eliquis. (4) Hyperlipidemia: Code(s): E78.5 - Hyperlipidemia, unspecified Status: Chronic Assessment and Plan: Lipid panel from February 2021 reviewed. Continue rosuvastatin 40 mg daily (5) Acute on chronic kidney failure: Code(s): N17.9 - Acute kidney failure, unspecified; N18.9 - Chronic kidney disease, unspecified Status: Acute Assessment and Plan: Baseline creatinine ranges from 1.5-1.7. Creatinine elevated at 2.2 on arrival. Suspect prerenal etiology secondary to dehydration. Renal function improved with IV fluid rehydration and creatinine is 1.4 today. Renal ultrasound reviewed with normal kidneys and no evidence of hydronephrosis. Monitor renal function closely and renally dose medications. (6) Acute dehydration: Code(s): E86.0 - Dehydration Status: Acute Assessment and Plan: Secondary to strenuous physical activity and poor oral intake, in combination with diuretics. He has been adequately rehydrated with IV fluids. IV fluids have been discontinued and he is tolerating p.o. intake (7) Chronic respiratory failure: Code(s): J96.10 - Chronic respiratory failure, unspecified whether with hypoxia or hypercapnia Status: Acute Assessment and Plan: Multifactorial secondary to COPD, emphysematous bleb, ANTONIO. He is established with pulmonology. He is maintaining adequate oxygen saturations on 1 L per nasal cannula, consistent with his baseline Continue supplemental O2 as needed with goal saturation 90% or above (8) Congestive heart failure, unspecified: Code(s): I50.9 - Heart failure, unspecified Status: Acute Assessment and Plan: Appears clinically compensated. Continue home Lasix and potassium supplementation Monitor intake and output Heart healthy diet (9) Essential (primary) hypertension: Code(s): I10 - Essential (primary) hypertension Status: Acute Assessment and Plan: Blood pressures were soft upon presentation. Blood pressures reviewed and are well controlled today. Last BP 124/91. Lisinopril, amlodipine and coreg on hold Monitor BP trends and adjust medication regimen as needed (10) Obstructive sleep apnea: Code(s): G47.33 - Obstructive sleep apnea (adult) (pediatric) Status: Acute Assessment and Plan: Continue BiPAP at night Subjective Date/time seen: 04/03/21 14:31 Interval history: Date of service: 04/03/2021 Yosef Rodríguez is a 76-year-old male with history of atrial fibrillation on chronic anticoagulation, CKD stage 3, chronic respiratory failure on chronic 1 L O2, history of CVA, and hyperlipidemia who is seen in fol
--- NOTE | 2021-04-03 15:19 | PM.PNCARD ---
Progress Note: A&P Assessment and Plan (1) Bradycardia: Code(s): R00.1 - Bradycardia, unspecified Status: Acute Assessment and Plan: Atrial fibrillation with slow ventricular response per EKG. Patient is asymptomatic with this bradycardia denying lightheadedness, dizziness, syncope. This is likely not a new problem as patient states he sometimes notes that his heart rate is in the 30s and 40s when he checks his heart rate at home. He was on carvedilol at home which has been stopped due to his hypotension and bradycardia. Telemetry is now demonstrating frequent events of bradycardia with heart rates down to as low as 26. Patient remains asymptomatic with these events. Discussed with patient and at the bedside that despite his lack of symptoms with bradycardic events pacemaker implantation is indicated in this setting due to high risk of syncope, injury, and unwanted bleeding. The patient is amenable to the plan of undergoing permanent pacemaker implantation during this hospitalization. We will need to hold his Eliquis and bridge him with heparin. I have held his Eliquis after today's p.m. dose and will start heparin drip in the morning. Plan is to undergo permanent pacemaker implantation this Friday with Dr. Joseph. (2) Atrial fibrillation: Code(s): I48.91 - Unspecified atrial fibrillation Status: Chronic Assessment and Plan: Chronic atrial fibrillation on systemic anticoagulation with apixaban. He is rate controlled and in fact bradycardic at times despite any pharmacologic agents. See above in regard to systemic anticoagulation in the setting of upcoming procedure plan (3) Congestive heart failure, unspecified: Code(s): I50.9 - Heart failure, unspecified Status: Acute Assessment and Plan: Echocardiogram in November of 2016 demonstrated a left ventricular ejection fraction of 66% with grade 3-4 diastolic dysfunction. Repeat echocardiogram today demonstrated a similar ejection fraction of 60-65%. On furosemide We will continue to monitor clinical signs of CHF, BMP. (4) Hyperlipidemia: Code(s): E78.5 - Hyperlipidemia, unspecified Status: Chronic Assessment and Plan: Lipid panel from December 2019 total cholesterol 239, HDL 26, triglycerides 109, LDL 192. Continue rosuvastatin 40 mg daily. Will obtain lipid panel at next office visit in about 1 month. (5) Acute on chronic kidney failure: Code(s): N17.9 - Acute kidney failure, unspecified; N18.9 - Chronic kidney disease, unspecified Status: Acute Assessment and Plan: Stage III CKD with baseline creatinine 1.5 to 1.7. Serum creatinine 2.2 on arrival and is 1.4. IV fluids have been stopped at this point and furosemide has been resumed. Renal ultrasound normal. We will continue to monitor BMP daily. (6) Acute CVA (cerebrovascular accident): Code(s): I63.9 - Cerebral infarction, unspecified Status: Acute Assessment and Plan: Patient presenting with right-sided upper extremity weakness and numbness. MRI demonstrated: 1. Small acute infarcts in the left frontal lobe and left frontoparietal region. 2. Small old infarcts in left parietal lobe and right caudate nucleus. 3. Moderate nonspecific cerebral white matter disease, which likely represents chronic small vessel ischemic disease. Will appreciate Neurology consultation. (7) Acute dehydration: Code(s): E86.0 - Dehydration Status: Acute Assessment and Plan: Probably secondary to poor oral intake, diuretics. Patient has been rehydrated with IV fluids and Kidney function is normalizing per laboratory studies. Subjective Date/time seen: 04/03/21 15:19 Interval history: Cardiology follow-up for atrial fibrillation, bradycardia. Date of service: 04/03/2021: Patient continues to feel well today. He continues to deny any lightheadedness, dizziness, chest pain, palpitat
[2021-04-03] MEDS: AMITRIPTYLINE HCL 10 MG TABLET PO (20:35)
[2021-04-04] VITALS (16 sets, daily range): BP systolic 113–148; BP diastolic 73–98; PULSE 41–72; RESP 14–20; TEMP 35.8–36.3; O2SAT 97–100
[2021-04-04 05:51] LABS: Anion Gap 4 mmol/L (8-16); Blood Urea Nitrogen 25 mg/dL (9-20); Calcium 8.8 mg/dL (8.4-10.2); Carbon Dioxide 29 mmol/L (22-30); Chloride 108 mmol/L (98-107); Estimated CRCL calculation 59 ml/min; Estimated Glomerular Filt Rate 50; Glucose 94 mg/dL (75-110); Potassium 3.9 mmol/L (3.4-5.0); Sodium 141 mmol/L (137-145)
[2021-04-04] MEDS: PANTOPRAZOLE 40 MG TABLET PO (08:47)
[2021-04-04] MEDS: ROSUVASTATIN 10 MG TABLET 40 MG PO (08:47)
[2021-04-04] MEDS: ASPIRIN 81 MG ENTERIC TABLET PO (08:47)
[2021-04-04] MEDS: CHOLECALCIFEROL 400 UNITS TABLET (VIT D) PO (08:47)
[2021-04-04] MEDS: allopurinoL 100 MG TABLET PO (08:47)
[2021-04-04] MEDS: FUROSEMIDE 40 MG TABLET PO ×2 (08:47→16:58)
[2021-04-04] MEDS: MAGNESIUM OXIDE 400 MG TABLET PO ×2 (08:47→16:58)
[2021-04-04] MEDS: CYANOCOBALAMIN 1,000 MCG TABLET 1000 MCG PO (08:47)
[2021-04-04] MEDS: CALCIUM CARBONATE (OSCAL) 500 MG TABLET 1000 MG PO ×3 (08:47→16:58)
[2021-04-04 09:42] LABS: Basophils Percent Auto 0.3 % (0.2-1.2); Eosinophils Absolute Auto 0.1 K/mm3 (0-0.3); Eosinophils Percent Auto 1.5 % (0-4.4); Hematocrit 45.4 % (42.0-52.0); Hemoglobin 14.4 g/dL (14.0-18.0); Immature Granulocyte Absolute 0.04 K/mm3 (0.00-0.031); Immature Granulocyte Percent A 0.6 % (0-0.5); Lymphocytes Absolute Auto 0.92 K/mm3 (0.9-3.2); Lymphocytes Percent Auto 13.4 % (18.3-44.2); Mean Corpuscular HGB Conc 31.7 g/dl (32-36); Mean Corpuscular Hemoglobin 31.7 pg (26-34); Mean Platelet Volume 11.3 fl (7.4-10.4); Monocytes Absolute Auto 0.4 K/mm3 (0.1-0.6); Neutrophils Absolute Auto 5.4 K/mm3 (1.3-6.7); Neutrophils Percent Auto 78.2 % (45.5-73.1); Platelet Count Result 176 k/mm3 (150-375); Red Blood Count 4.54 M/mm3 (4.6-6.20); Red Cell Distribution Width 15.3 % (11.5-14.5); White Blood Count 6.9 K/mm3 (4.5-10.0)
[2021-04-04] MEDS: HEPARIN SOD/D5W 100 UNITS/ML 25,000 UNITS/250 ML BAG 15 UNITS IV CONT (09:45)
[2021-04-04] MEDS: HEPARIN SODIUM 5,000 UNITS/ML VIAL 8000 UNITS IV PUSH (09:46)
[2021-04-04 09:54] LABS: INR 1.3; Prothrombin Time 16.9 Seconds (11.1-14.7)
[2021-04-04 09:55] LABS: Partial Thromboplastin Time 29.5 SECONDS (22.3-36.8)
[2021-04-04] MEDS: BUDESONIDE RESPULE NEB 0.5 MG/2 ML AMP INHALATION ×2 (10:09→19:52)
--- NOTE | 2021-04-04 13:35 | PM.PNCARD ---
Progress Note: A&P Assessment and Plan (1) Bradycardia: Code(s): R00.1 - Bradycardia, unspecified Status: Acute Assessment and Plan: Atrial fibrillation with slow ventricular response per EKG. Patient is asymptomatic with this bradycardia denying lightheadedness, dizziness, syncope. This is likely not a new problem as patient states he sometimes notes that his heart rate is in the 30s and 40s when he checks his heart rate at home. He was on carvedilol at home which has been stopped due to his hypotension and bradycardia. Today telemetry demonstrates atrial fibrillation with a rate ranging from mid 40's to 70's without any significant pauses. Discussed with patient that since his rate has normalized that a pacemaker is not currently indicated. I told the patient that we will continue to monitor him on telemetry overnight and in the morning if he has not had any further episodes of severe bradycardia we would not proceed with pacemaker implantation and he should be able to be discharged home. (2) Atrial fibrillation: Code(s): I48.91 - Unspecified atrial fibrillation Status: Chronic Assessment and Plan: Chronic atrial fibrillation on systemic anticoagulation with apixaban. He is rate controlled and in fact bradycardic at times despite any pharmacologic agents. Since patient is currently systemically anticoagulated with heparin due to the possibility of pacemaker implantation on Friday. If he is no longer a candidate for pacemaker implantation on Friday, we will transition him back to oral anticoagulation on Eliquis. (3) Congestive heart failure, unspecified: Code(s): I50.9 - Heart failure, unspecified Status: Acute Assessment and Plan: Echocardiogram in November of 2016 demonstrated a left ventricular ejection fraction of 66% with grade 3-4 diastolic dysfunction. Repeat echocardiogram During this hospitalization demonstrated a similar ejection fraction of 60-65%. On furosemide. We will continue to monitor clinical signs of CHF. (4) Hyperlipidemia: Code(s): E78.5 - Hyperlipidemia, unspecified Status: Chronic Assessment and Plan: Lipid panel from December 2019 total cholesterol 239, HDL 26, triglycerides 109, LDL 192. Continue rosuvastatin 40 mg daily. Will obtain lipid panel at next office visit in about 1 month. (5) Acute on chronic kidney failure: Code(s): N17.9 - Acute kidney failure, unspecified; N18.9 - Chronic kidney disease, unspecified Status: Acute Assessment and Plan: Stage III CKD with baseline creatinine 1.5 to 1.7. Serum creatinine 2.2 on arrival and is 1.4. IV fluids have been stopped at this point and furosemide has been resumed. Renal ultrasound normal. We will continue to monitor BMP daily. (6) Acute CVA (cerebrovascular accident): Code(s): I63.9 - Cerebral infarction, unspecified Status: Acute Assessment and Plan: Patient presenting with right-sided upper extremity weakness and numbness. MRI demonstrated: 1. Small acute infarcts in the left frontal lobe and left frontoparietal region. 2. Small old infarcts in left parietal lobe and right caudate nucleus. 3. Moderate nonspecific cerebral white matter disease, which likely represents chronic small vessel ischemic disease. Will appreciate Neurology consultation. (7) Acute dehydration: Code(s): E86.0 - Dehydration Status: Acute Assessment and Plan: Probably secondary to poor oral intake, diuretics. Patient has been rehydrated with IV fluids and Kidney function is normalizing per laboratory studies. Subjective Date/time seen: 04/04/21 13:35 Interval history: Cardiology follow-up for atrial fibrillation, bradycardia. Date of service: 04/03/2021: Patient continues to feel well today. He continues to deny any lightheadedness, dizziness, chest pain, palpitations, shortness of breath, syncope. Date of serv
--- NOTE | 2021-04-04 14:11 | PM.IMPN ---
Progress Note: A&P Assessment and Plan (1) Acute CVA (cerebrovascular accident): Code(s): I63.9 - Cerebral infarction, unspecified Status: Acute Assessment and Plan: Presented with weakness of right upper extremity which has resolved. Head CT showed no acute intracranial process with evidence of small old lacunar infarct. Follow-up brain MRI showed small acute infarcts in the left frontal lobe and left frontoparietal region. He has no neurologic deficits. Echocardiogram and carotid doppler reviewed. Appreciate neurology consultation Appreciate PT/OT eval. He has declined ST eval as he has no issues with dysphagia Continue aspirin and statin (2) Bradycardia: Code(s): R00.1 - Bradycardia, unspecified Status: Acute Assessment and Plan: He is in atrial fibrillation with HR typically in the 40-50s, but occasionally down to the low 30s. He is asymptomatic. Telemetry reviewed and rate is improved today, mostly in the upper 40s-60s. Beta cyndie on hold Cardiology following. Considering pacemaker implantation if remaining bradycardic. Monitor on telemetry (3) Atrial fibrillation: Code(s): I48.91 - Unspecified atrial fibrillation Status: Chronic Assessment and Plan: As above. Eliquis held for possible pacemaker. Continue heparin drip (4) Hyperlipidemia: Code(s): E78.5 - Hyperlipidemia, unspecified Status: Chronic Assessment and Plan: Lipid panel from February 2021 reviewed. Continue rosuvastatin 40 mg daily (5) Acute on chronic kidney failure: Code(s): N17.9 - Acute kidney failure, unspecified; N18.9 - Chronic kidney disease, unspecified Status: Acute Assessment and Plan: Baseline creatinine ranges from 1.5-1.7. Creatinine elevated at 2.2 on arrival. Suspect prerenal etiology secondary to dehydration. Renal function improved with IV fluid rehydration and creatinine is 1.4 today. Renal ultrasound reviewed with normal kidneys and no evidence of hydronephrosis. Monitor renal function closely and renally dose medications. (6) Acute dehydration: Code(s): E86.0 - Dehydration Status: Acute Assessment and Plan: Resolved. Secondary to strenuous physical activity and poor oral intake, in combination with diuretics. He has been adequately rehydrated with IV fluids. IV fluids have been discontinued and he is tolerating p.o. intake (7) Chronic respiratory failure: Code(s): J96.10 - Chronic respiratory failure, unspecified whether with hypoxia or hypercapnia Status: Acute Assessment and Plan: Multifactorial secondary to COPD, emphysematous bleb, ANTONIO. He is established with pulmonology. He is maintaining adequate oxygen saturations on 1 L per nasal cannula, consistent with his baseline Continue supplemental O2 as needed with goal saturation 90% or above (8) Congestive heart failure, unspecified: Code(s): I50.9 - Heart failure, unspecified Status: Acute Assessment and Plan: Appears clinically compensated. Continue home Lasix and potassium supplementation Monitor intake and output Heart healthy diet (9) Essential (primary) hypertension: Code(s): I10 - Essential (primary) hypertension Status: Acute Assessment and Plan: Blood pressures reviewed and are well controlled. Last BP 113/73. Lisinopril, amlodipine and coreg on hold Monitor BP trends and adjust medication regimen as needed (10) Obstructive sleep apnea: Code(s): G47.33 - Obstructive sleep apnea (adult) (pediatric) Status: Acute Assessment and Plan: Continue BiPAP at night Subjective Date/time seen: 04/04/21 14:11 Interval history: Date of service: 04/04/2021 Yosef Rodríguez is a 76-year-old male with history of atrial fibrillation on chronic anticoagulation, CKD stage 3, chronic respiratory failure on chronic 1 L O2, his
[2021-04-04 16:18] LABS: Partial Thromboplastin Time 150.4 SECONDS (22.3-36.8)
[2021-04-04] MEDS: POTASSIUM CHLORIDE 20 MEQ TABLET.ER PO (16:58)
[2021-04-04] MEDS: AMITRIPTYLINE HCL 10 MG TABLET PO (20:41)
[2021-04-04 22:50] LABS: Partial Thromboplastin Time 95.6 SECONDS (22.3-36.8)
[2021-04-05] VITALS (7 sets, daily range): BP systolic 136; BP diastolic 84; PULSE 48–58; RESP 18–20; TEMP 35.9; O2SAT 100
[2021-04-05 06:01] LABS: Basophils Percent Auto 0.6 % (0.2-1.2); Eosinophils Absolute Auto 0.1 K/mm3 (0-0.3); Eosinophils Percent Auto 1.7 % (0-4.4); Hematocrit 43.1 % (42.0-52.0); Hemoglobin 14.3 g/dL (14.0-18.0); Immature Granulocyte Absolute 0.01 K/mm3 (0.00-0.031); Immature Granulocyte Percent A 0.2 % (0-0.5); Lymphocytes Absolute Auto 1.51 K/mm3 (0.9-3.2); Lymphocytes Percent Auto 23.9 % (18.3-44.2); Mean Corpuscular HGB Conc 33.2 g/dl (32-36); Mean Corpuscular Hemoglobin 32.4 pg (26-34); Mean Corpuscular Volume 97.5 fl (80-100); Mean Platelet Volume 10.9 fl (7.4-10.4); Monocytes Absolute Auto 0.7 K/mm3 (0.1-0.6); Monocytes Percent Auto 11.2 % (2.6-8.5); Neutrophils Absolute Auto 3.9 K/mm3 (1.3-6.7); Neutrophils Percent Auto 62.4 % (45.5-73.1); Platelet Count Result 159 k/mm3 (150-375); Red Blood Count 4.42 M/mm3 (4.6-6.20); Red Cell Distribution Width 14.9 % (11.5-14.5); White Blood Count 6.3 K/mm3 (4.5-10.0)
[2021-04-05 06:13] LABS: Partial Thromboplastin Time 93.8 SECONDS (22.3-36.8)
[2021-04-05 06:17] LABS: Anion Gap 6 mmol/L (8-16); Blood Urea Nitrogen 24 mg/dL (9-20); Calcium 8.7 mg/dL (8.4-10.2); Carbon Dioxide 27 mmol/L (22-30); Chloride 106 mmol/L (98-107); Estimated CRCL calculation 59 ml/min; Estimated Glomerular Filt Rate 50; Glucose 97 mg/dL (75-110); Potassium 3.6 mmol/L (3.4-5.0); Sodium 139 mmol/L (137-145)
[2021-04-05] MEDS: HEPARIN SOD/D5W 100 UNITS/ML 25,000 UNITS/250 ML BAG 12 UNITS IV CONT (06:17)
[2021-04-05] MEDS: BUDESONIDE RESPULE NEB 0.5 MG/2 ML AMP INHALATION (08:19)
[2021-04-05] MEDS: CALCIUM CARBONATE (OSCAL) 500 MG TABLET 1000 MG PO (09:08)
[2021-04-05] MEDS: MAGNESIUM OXIDE 400 MG TABLET PO (09:08)
[2021-04-05] MEDS: CYANOCOBALAMIN 1,000 MCG TABLET 1000 MCG PO (09:08)
[2021-04-05] MEDS: CHOLECALCIFEROL 400 UNITS TABLET (VIT D) PO (09:08)
[2021-04-05] MEDS: ASPIRIN 81 MG ENTERIC TABLET PO (09:08)
[2021-04-05] MEDS: FUROSEMIDE 40 MG TABLET PO (09:08)
[2021-04-05] MEDS: allopurinoL 100 MG TABLET PO (09:08)
[2021-04-05] MEDS: ROSUVASTATIN 10 MG TABLET 40 MG PO (09:08)
[2021-04-05] MEDS: PANTOPRAZOLE 40 MG TABLET PO (09:08)
[2021-04-05] MEDS: lisinopriL 20 MG TABLET 40 MG PO (11:07)
--- NOTE | 2021-04-05 11:23 | PM.PNCARD ---
Progress Note: A&P Assessment and Plan (1) Bradycardia: Code(s): R00.1 - Bradycardia, unspecified Status: Acute Assessment and Plan: Atrial fibrillation with slow ventricular response per EKG. Patient is asymptomatic with this bradycardia denying lightheadedness, dizziness, syncope. This is likely not a new problem as patient states he sometimes notes that his heart rate is in the 30s and 40s when he checks his heart rate at home. He was on carvedilol at home which has been stopped due to his hypotension and bradycardia. Patient remains in atrial fibrillation with a rate of 55 at the time of examination. Telemetry review demonstrated several episodes of bradycardia with the rate down to 29. These episodes happened while the patient was asleep so unable to determine if there are any associated symptoms. The patient is stable to be discharged home. I will order a 7 day Holter monitor for continued observation of his heart rate as an outpatient. (2) Atrial fibrillation: Code(s): I48.91 - Unspecified atrial fibrillation Status: Chronic Assessment and Plan: Chronic atrial fibrillation on systemic anticoagulation with apixaban. He is rate controlled and in fact bradycardic at times despite any AV theodore blocking agents. He will resume his apixaban. (3) Congestive heart failure, unspecified: Code(s): I50.9 - Heart failure, unspecified Status: Acute Assessment and Plan: Echocardiogram in November of 2016 demonstrated a left ventricular ejection fraction of 66% with grade 3-4 diastolic dysfunction. Repeat echocardiogram During this hospitalization demonstrated a similar ejection fraction of 60-65%. On furosemide. Will restart lisinopril, amlodipine. He should remain off metoprolol due to bradycardia. (4) Hyperlipidemia: Code(s): E78.5 - Hyperlipidemia, unspecified Status: Chronic Assessment and Plan: Lipid panel from December 2019 total cholesterol 239, HDL 26, triglycerides 109, LDL 192. Continue rosuvastatin 40 mg daily. Will obtain lipid panel at next office visit in about 1 month. (5) Acute on chronic kidney failure: Code(s): N17.9 - Acute kidney failure, unspecified; N18.9 - Chronic kidney disease, unspecified Status: Acute Assessment and Plan: Stage III CKD with baseline creatinine 1.5 to 1.7. Serum creatinine 2.2 on arrival and is 1.4. IV fluids have been stopped at this point and furosemide has been resumed. Renal ultrasound normal. We will continue to monitor BMP daily. (6) Acute CVA (cerebrovascular accident): Code(s): I63.9 - Cerebral infarction, unspecified Status: Acute Assessment and Plan: Patient presenting with right-sided upper extremity weakness and numbness. MRI demonstrated: 1. Small acute infarcts in the left frontal lobe and left frontoparietal region. 2. Small old infarcts in left parietal lobe and right caudate nucleus. 3. Moderate nonspecific cerebral white matter disease, which likely represents chronic small vessel ischemic disease. Will appreciate Neurology consultation. (7) Acute dehydration: Code(s): E86.0 - Dehydration Status: Acute Assessment and Plan: Probably secondary to poor oral intake, diuretics. Patient has been rehydrated with IV fluids and Kidney function is normalizing per laboratory studies. Subjective Date/time seen: 04/05/21 11:23 Interval history: Cardiology follow-up for atrial fibrillation, bradycardia. Date of service: 04/03/2021: Patient continues to feel well today. He continues to deny any lightheadedness, dizziness, chest pain, palpitations, shortness of breath, syncope. Date of service 04/04/2021: Patient is feeling well again today and denies any complaints of any kind. We discussed normalization of his heart rate today and potential for not undergoing pacemaker implant on Friday. If his rate remains normal over
--- NOTE | 2021-04-05 15:56 | PM.DS ---
DS: Admitting Diagnosis Admitting Diagnosis Admitting Diagnosis: Acute CVA DS: Discharge Diagnosis Discharge Diagnosis (1) Acute CVA (cerebrovascular accident): Code(s): I63.9 - Cerebral infarction, unspecified Status: Acute Assessment and Plan: Presented with weakness of right upper extremity. Head CT showed no acute intracranial process with evidence of small old lacunar infarct. Follow-up brain MRI showed small acute infarcts in the left frontal lobe and left frontoparietal region. He has no neurologic deficits and right upper extremity weakness resolved. Echocardiogram and carotid doppler reviewed. He was seen in consultation by Neurology and evaluated by PT/OT. He was consistent with his prior level of function. Continue aspirin and statin. (2) Bradycardia: Code(s): R00.1 - Bradycardia, unspecified Status: Acute Assessment and Plan: He is in atrial fibrillation with HR typically in the 40-50s, but had episodes down to low 30s. He remained asymptomatic. His carvedilol was discontinued. He was seen in consultation by cardiology. Given significant bradycardia, pacemaker implantation was considered. Eliquis was held and he was transitioned to heparin drip in preparation for possible procedure. His heart rate stabilized around the 50s with discontinuation of beta-cyndie, and ultimately it was decided that pacemaker was not indicated at this time. A 7 day registered nurse cardiac was arranged and he will follow-up with cardiology on 04/25/2021. (3) Atrial fibrillation: Code(s): I48.91 - Unspecified atrial fibrillation Status: Chronic Assessment and Plan: As above. Eliquis held for possible pacemaker but was resumed on discharge. Carvedilol discontinued (4) Hyperlipidemia: Code(s): E78.5 - Hyperlipidemia, unspecified Status: Chronic Assessment and Plan: Lipid panel from February 2021 reviewed. Continue rosuvastatin 40 mg daily (5) Acute on chronic kidney failure: Code(s): N17.9 - Acute kidney failure, unspecified; N18.9 - Chronic kidney disease, unspecified Status: Acute Assessment and Plan: Baseline creatinine ranges from 1.5-1.7. Creatinine elevated at 2.2 on arrival. Suspect prerenal etiology secondary to dehydration. Renal function improved with IV fluid rehydration and returned to baseline. Renal ultrasound reviewed with normal kidneys and no evidence of hydronephrosis. (6) Acute dehydration: Code(s): E86.0 - Dehydration Status: Acute Assessment and Plan: Resolved. Secondary to strenuous physical activity and poor oral intake, in combination with diuretics. He was adequately rehydrated with IV fluids was tolerating oral intake. Discussed importance of maintaining adequate hydration. (7) Chronic respiratory failure: Code(s): J96.10 - Chronic respiratory failure, unspecified whether with hypoxia or hypercapnia Status: Acute Assessment and Plan: Multifactorial secondary to COPD, emphysematous bleb, ANTONIO. He is established with pulmonology. He maintained adequate oxygen saturations on 1 L per nasal cannula, consistent with his baseline (8) Congestive heart failure, unspecified: Code(s): I50.9 - Heart failure, unspecified Status: Acute Assessment and Plan: Appears clinically compensated. Continue home Lasix and potassium supplementation. Continue outpatient cardiology follow-up (9) Essential (primary) hypertension: Code(s): I10 - Essential (primary) hypertension Status: Acute Assessment and Plan: Blood pressures reviewed and were well controlled. Home amlodipine and lisinopril were resumed. Carvedilol discontinued as above. (10) Obstructive sleep apnea: Code(s): G47.33 - Obstructive sleep apnea (adult) (pediatric) Status: Acute Assessment and Plan: Continue BiPAP at night DS: Summary Hospital Course Reas
== END 2021-04-05 15:30 | disposition home or self-care (01) | DRG 65 ==
LOC: ANHED 12:34 → ANH3MED 13:34
PROVIDERS: Emergency Medicine Emergency Medical Services; Nurse Practitioner; Physician Assistant; Admitting Provider Family Medicine; Emergency Provider Emergency Medicine; PCP Family Medicine; Visit Provider Internal Medicine
DX: I63.9 Cerebral infarction, unspecified (principal); I48.20 Chronic atrial fibrillation, unspecified; J96.11 Chronic respiratory failure with hypoxia; N17.9 Acute kidney failure, unspecified; I13.0 Hypertensive heart and chronic kidney disease with heart failure and stage 1 through stage 4 chronic kidney disease, or unspecified chronic kidney disease; Z68.41 Body mass index [BMI] 40.0-44.9, adult; I50.32 Chronic diastolic (congestive) heart failure; M62.81 Muscle weakness (generalized); R20.0 Anesthesia of skin; N18.32 Chronic kidney disease, stage 3b; R29.700 NIHSS score 0; R00.1 Bradycardia, unspecified; E78.5 Hyperlipidemia, unspecified; E66.01 Morbid (severe) obesity due to excess calories; E86.0 Dehydration; T50.2X5A Adverse effect of carbonic-anhydrase inhibitors, benzothiadiazides and other diuretics, initial encounter; G47.33 Obstructive sleep apnea (adult) (pediatric); N40.0 Benign prostatic hyperplasia without lower urinary tract symptoms; J43.9 Emphysema, unspecified; Z79.01 Long term (current) use of anticoagulants; Z79.82 Long term (current) use of aspirin; Z99.81 Dependence on supplemental oxygen; Z87.891 Personal history of nicotine dependence; Z90.49 Acquired absence of other specified parts of digestive tract
CPT/HCPCS: 36415; 70450; 70551; 71045; 76775; 80048; 80053; 81003; 82948; 83605; 83735; 84443; 84484; 85014; 85018; 85025; 85610; 85730; 93005; 93880; 94640; 96360; 96361; 96374; 96375; 97161; 97165; 99285; A9270; C8929; G0378; J1644; J7030; J7040; J7120; Q9957

== ENCOUNTER → 2021-05-14 00:07 | Outpatient (CLI) | payer MEDICARE, SELFPAY ==
[2021-05-14 15:56] LABS: SARS-CoV-2 RNA PCR Negative
== END ==
PROVIDERS: PCP Family Medicine; Visit Provider Internal Medicine Cardiovascular Disease
DX: Z01.812 Encounter for preprocedural laboratory examination (principal); Z20.822 Contact with and (suspected) exposure to COVID-19
CPT/HCPCS: C9803; U0003; U0005

== ENCOUNTER 2021-05-17 01:30 | Day surgery (SDC) | payer MEDICARE, SELFPAY ==
[2021-05-16 15:40] VITALS: BMI 43.0
[2021-05-17] VITALS (14 sets, daily range): BP systolic 117–160; BP diastolic 73–108; PULSE 60–88; RESP 15–21; TEMP 35.7–36.7; O2SAT 97–100; BMI 43.3
--- NOTE | ~2021-05-17 | XR_ITS ---
XR chest 2V DATE: 05/18/2021 08:20 INDICATION: Pacemaker insertion TECHNIQUE: AP and lateral views COMPARISON: 05/17/2021 portable AP chest FINDINGS: Again noted is a left-sided pacemaker device with lead overlying right ventricular apex. Cardiomegaly. Aortic calcification and tortuosity. No pulmonary infiltrate or consolidation, pleural effusion or pneumothorax is evident. Diffuse osteopenia. Multiple old healed left rib fractures. IMPRESSION: Left cardiac pacemaker device with right ventricular lead Cardiac megaly Aortic atherosclerosis No active pulmonary disease Reviewed, dictated and finalized at location A.
--- NOTE | ~2021-05-17 | XR_ITS ---
XR chest 1V portable 05/17/2021 16:22 Indication: Pacemaker insertion Procedure: AP portable chest Comparison: Comparison to multiple prior studies sequentially, with oldest reviewed study dated 05/26. Findings: Cardiomegaly. Pacemaker lead tip in the right ventricle. There is interstitial edema. Possi ble small left effusion. No pneumothorax. There are healed left rib fractures. No acute osseous abnor mality. Impression: 1: Cardiomegaly with interstitial edema. Reviewed, dictated and finalized at location A. Impression: 1: Cardiomegaly with interstitial edema.
--- NOTE | 2021-05-17 12:29 | WPDANESEPPF ---
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 Patient Data Age: 76 Gender: M Height: 1.78 m Weight: 136 kg Allergies Allergy/AdvReac Type Severity Reaction Status Date / Time levofloxacin Allergy Unknown unk Verified 05/16/21 15:36 Penicillins Allergy Unknown unk Verified 05/16/21 15:36 Home Medications Medication Instructions Recorded Confirmed Type cholecalciferol (vitamin D3) 10 400 unit PO DAILY 09/21/19 04/20/21 History mcg (400 unit) capsule cyanocobalamin (vitamin B-12) 1,000 mcg PO DAILY 09/21/19 04/20/21 History 1,000 mcg tablet magnesium oxide 500 mg tablet 500 mg PO BID 09/21/19 04/20/21 History omeprazole 20 mg capsule,delayed 20 mg PO DAILY 09/21/19 04/20/21 History release potassium chloride 20 mEq 20 meq PO QMWFSA 09/21/19 04/20/21 History tablet,extended release furosemide 40 mg tablet 40 mg PO BID tablet 09/30/19 04/20/21 History calcium carbonate 500 mg calcium 1,000 mg PO TID 12/14/19 04/20/21 History (1,250 mg) capsule rosuvastatin 40 mg tablet 40 mg PO DAILY 03/23/20 04/20/21 History allopurinol 100 mg tablet 100 mg PO DAILY #90 tablet 09/19/20 04/20/21 Rx budesonide 0.5 mg/2 mL suspension 0.5 mg INHALATION BID #120 ml 09/19/20 04/20/21 Rx for nebulization ipratropium bromide 0.02 % 2.5 ml INHALATION Q6H PRN #300 ml 09/19/20 04/20/21 Rx solution for inhalation amitriptyline 10 mg tablet 10 mg PO .Q.h.s. #90 tablet 10/11/20 04/20/21 Rx amlodipine 5 mg tablet 5 mg PO DAILY #90 tablet 01/12/21 04/20/21 Rx apixaban 5 mg tablet 5 mg PO BID #60 tablet 02/27/21 04/20/21 Rx Brovana 2 ml INHALATION BID 04/01/21 04/20/21 History lisinopril 40 mg PO DAILY 04/01/21 04/20/21 History aspirin 81 mg PO DAILY 04/02/21 04/20/21 History Patient hx anesthesia problems: none Family hx anesthesia problems: none PMFSH Past Medical History Medical History Acute sinusitis Atrial fibrillation Candidiasis of other urogenital sites Chronic kidney disease (CKD) stage G3b/A1, moderately decreased glomerular filtration rate (GFR) between 30-44 mL/min/1.73 square meter and albuminuria creatinine ratio less than 30 mg/g Chronic respiratory failure COPD exacerbation Emphysematous bleb History of CVA (cerebrovascular accident) History of tobacco abuse Hyperlipidemia Obstructive sleep apnea Severe chronic obstructive pulmonary disease Supplemental oxygen dependent Surgical History Surgical History H/O foot surgery Hammer toe surgery on the 2nd and 3rd toe on the right foot. H/O hernia repair History of appendectomy History of lung surgery extraction of a blood that was grapefruit size from the right lung. Family History Family History Mother Patient's mother is , Onset Age: 85 Diabetes mellitus Hypertension Sibling Patient's brother is , Onset Age: 64 Family history of cardiovascular disease Father Family history of primary malignant neoplasm of liver, Onset Age: 31 Social History Social History Social History: . the patient's Annabel is a durable power assistant district attorney for healthcare. The patient desires to be a full code. They have 2 children together. 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 The patient does not smoke or drink alcohol use any illicit drugs. The patient used to smoke and he quit many years ago. He used to smoke a pack a cigarettes a day. He quit in 2014. Smoking packs per day: 1 Smoking cigarettes per day: 20.0 Years smoked: 50 Smoking pack-years: 50.00 Smok
[2021-05-17 13:09] LABS: Basophils Percent Auto 0.6 % (0.2-1.2); Eosinophils Absolute Auto 0.1 K/mm3 (0-0.3); Eosinophils Percent Auto 0.7 % (0-4.4); Hematocrit 45.2 % (42.0-52.0); Hemoglobin 14.5 g/dL (14.0-18.0); Immature Granulocyte Absolute 0.03 K/mm3 (0.00-0.031); Immature Granulocyte Percent A 0.4 % (0-0.5); Lymphocytes Absolute Auto 1.18 K/mm3 (0.9-3.2); Lymphocytes Percent Auto 17.3 % (18.3-44.2); Mean Corpuscular HGB Conc 32.1 g/dl (32-36); Mean Corpuscular Hemoglobin 32.5 pg (26-34); Mean Corpuscular Volume 101.3 fl (80-100); Mean Platelet Volume 9.9 fl (7.4-10.4); Monocytes Absolute Auto 0.5 K/mm3 (0.1-0.6); Monocytes Percent Auto 7.9 % (2.6-8.5); Neutrophils Percent Auto 73.1 % (45.5-73.1); Platelet Count Result 201 k/mm3 (150-375); Red Blood Count 4.46 M/mm3 (4.6-6.20); Red Cell Distribution Width 15.7 % (11.5-14.5); White Blood Count 6.8 K/mm3 (4.5-10.0)
[2021-05-17 13:18] LABS: INR 1.1; Prothrombin Time 14.3 Seconds (11.1-14.7)
--- NOTE | 2021-05-17 13:24 | P.HPUP_ITS ---
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 He history of strokes in July 2018 and March 2021 on a nticoagulation. His Eliquis has was changed to Lovenox bridging prior to this procedure and his last dose was yesterday morning. A history of COPD on home O2, sleep apnea BiPAP and morbid obesity as well as hypertension diastolic heart failure. He is here for an elective single-chamber pacemaker implant. History and Physical has been reviewed, including an updated exam of the patient. There are NO changes in the patient's condition. Risks, benefits, and alternatives have been discussed and questions answered. Reviewed risks of pacemaker implant with patient. These include breathing problems, allergic reactions, bleeding, infection, pneumothorax, cardiac puncture, need for unanticipated surgery, lead dislodgement among others.Patient agrees to proceed with procedure.
--- NOTE | 2021-05-17 13:26 | WPDMODSED ---
Moderate Sedation Note-Pt Data Patient Data Diagnosis: Persistent AFib with tachy-radha syndrome, AFib RVR and multiple pauses Present Complaint: Patient with persistent atrial fibrillation but tachy-radha syndrome with intermittent bradycardia and multiple pauses even off beta-blockers, and episodes of AFib RVR. He history of strokes in July 2018 and March 2021 on anticoagulation. His Eliquis has was changed to Lovenox bridging prior to this procedure and his last dose was yesterday morning. A history of COPD on home O2, sleep apnea BiPAP and morbid obesity as well as hypertension diastolic heart failure. He is here for an elective single-chamber pacemaker implant. . Procedure to be performed/Plan: Sedation with anesthesia Venogram Implantation of a permanent single chamber pacemaker Allergies Allergy/AdvReac Type Severity Reaction Status Date / Time levofloxacin Allergy Unknown unk Verified 05/16/21 15:36 Penicillins Allergy Unknown unk Verified 05/16/21 15:36 Home Medications Medication Instructions Recorded Confirmed Type cholecalciferol (vitamin D3) 10 400 unit PO DAILY 09/21/19 05/17/21 History mcg (400 unit) capsule cyanocobalamin (vitamin B-12) 1,000 mcg PO DAILY 09/21/19 05/17/21 History 1,000 mcg tablet magnesium oxide 500 mg tablet 500 mg PO BID 09/21/19 05/17/21 History omeprazole 20 mg capsule,delayed 20 mg PO DAILY 09/21/19 05/17/21 History release potassium chloride 20 mEq 20 meq PO QMWFSA 09/21/19 05/17/21 History tablet,extended release furosemide 40 mg tablet 40 mg PO BID tablet 09/30/19 05/17/21 History calcium carbonate 500 mg calcium 1,000 mg PO TID 12/14/19 05/17/21 History (1,250 mg) capsule rosuvastatin 40 mg tablet 40 mg PO DAILY 03/23/20 05/17/21 History allopurinol 100 mg tablet 100 mg PO DAILY #90 tablet 09/19/20 05/17/21 Rx budesonide 0.5 mg/2 mL suspension 0.5 mg INHALATION BID #120 ml 09/19/20 05/17/21 Rx for nebulization ipratropium bromide 0.02 % 2.5 ml INHALATION Q6H PRN #300 ml 09/19/20 05/17/21 Rx solution for inhalation amitriptyline 10 mg tablet 10 mg PO .Q.h.s. #90 tablet 10/11/20 05/17/21 Rx amlodipine 5 mg tablet 5 mg PO DAILY #90 tablet 01/12/21 05/17/21 Rx apixaban 5 mg tablet 5 mg PO BID #60 tablet 02/27/21 05/17/21 Rx arformoterol [Brovana] 2 ml INHALATION BID 04/01/21 05/17/21 History lisinopril 40 mg PO DAILY 04/01/21 05/17/21 History aspirin 81 mg PO DAILY 04/02/21 05/17/21 History Sedation/Anesthesia: No previous sedation/anesthesia problems (including family history). [facility] Past Medical History Medical History Acute sinusitis Atrial fibrillation Candidiasis of other urogenital sites Chronic kidney disease (CKD) stage G3b/A1, moderately decreased glomerular filtration rate (GFR) between 30-44 mL/min/1.73 square meter and albuminuria creatinine ratio less than 30 mg/g Chronic respiratory failure COPD exacerbation Emphysematous bleb History of CVA (cerebrovascular accident) History of tobacco abuse Hyperlipidemia Obstructive sleep apnea Severe chronic obstructive pulmonary disease Supplemental oxygen dependent Surgical History Surgical History H/O foot surgery Hammer toe surgery on the 2nd and 3rd toe on the right foot. H/O hernia repair History of appendectomy History of lung surgery extraction of a blood that was grapefruit size from the right lung. Family History Family History Mother Patient's mother is , Onset Age: 85 Diabetes mellitus Hypertension Sibling Patient's brother is , Onset Age: 64 Family history of cardiovascular disease Father Family history of primary malignant neoplasm of liver, Onset Age: 31 Social History Social History Social History: . the patient
[2021-05-17 13:46] LABS: Anion Gap 8 mmol/L (8-16); Blood Urea Nitrogen 24 mg/dL (9-20); Calcium 9.2 mg/dL (8.4-10.2); Carbon Dioxide 26 mmol/L (22-30); Chloride 107 mmol/L (98-107); Estimated CRCL calculation 54 ml/min; Estimated Glomerular Filt Rate 46; Glucose 86 mg/dL (75-110); Potassium 3.9 mmol/L (3.4-5.0); Sodium 141 mmol/L (137-145)
--- NOTE | 2021-05-17 15:50 | PM.OP ---
Procedure Note - Brief Procedure Note - Brief Date of procedure: 05/17/21 Pre-op diagnosis: tachy radha syndrome w/pauses Post-op diagnosis: same Procedure performed: Insertion of a permanent single-chamber Biotronik pacemaker Description of procedure: uneventful implant Anesthesia: other ( per Anesthesia) Surgeon: Taylor Carroll MD Complications: No immediate complications Condition: stable Disposition: observation
--- NOTE | 2021-05-17 15:51 | W.PM.PROC2 ---
Procedure Note - Detailed Date of Procedure 05/17/21 Pre-op Diagnosis tachy radha syndrome w/pauses and AFib RVR Post-op Diagnosis same Procedure Performed PROCEDURE PERFORMED: Sedation with anesthesia Venogram Placement of a permanent dual-chamber pacemaker Surgeon Taylor aCrroll MD Anesthesia other ( per Anesthesia) Indications Patient with persistent atrial fibrillation but tachy-radha syndrome with intermittent bradycardia and multiple pauses even off beta-blockers, and episodes of AFib RVR. He has a history of strokes in July 2018 and March 2021 on anticoagulation. His Eliquis has was changed to Lovenox bridging prior to this procedure and his last dose was yesterday morning. A history of COPD on home O2, sleep apnea BiPAP and morbid obesity as well as hypertension diastolic heart failure. He is here for an elective single-chamber pacemaker implant. Description of Procedure SITE: Left prepectoral area MEDICATIONS GIVEN IN CARGO VESSEL STEWARDESS: vancomycin 1 gram IV piggyback PROCEDURE: After informed consent , the patient was brought to the cath lab radiological technologist and the left prepectoral area was prepped and draped in usual fashion . The patient received preop antibiotic and sedation with the assistance anesthesia. The left prepectoral area was anesthetized with lidocaine . A venogram was performed showing the course of the left subclavian vein, which was patent. Next a skin incision was made and carried down to the prepectoral fascia. Hemostasis was obtained using electrocautery . The pacer pocket was formed. The left subclavian vein was easily accessed with the micropuncture technique, and a J-tip guide wire was passed into the inferior vena cava under fluoroscopic guidance . The needle was withdrawn . A 6 Tajik Tajik safety sheath was passed over the wire, the wire withdrawn, and the right ventricular lead was passed into the inferior vena cava under fluoroscopic guidance . The lead was then prolapsed through the tricuspid valve and advanced into the right ventricular apex. When suitable sensing and pacing thresholds were obtained, it was screwed into place. No extra cardiac stimulation was obtained using 10 volts. The sheath was withdrawn. The lead was secured to the prepectoral fascia using 2-0 silk over it's sleeve. The pocket was cleansed with antibiotic containing solution . The pulse generator was introduced into the operative field, and the lead was secured into the generator . A gentle tug showed the lead was securely fastened. The device was introduced into the pocket. A stay stitch with 2 0 silk was placed. The subcutaneous tissues were closed in a double layer fashion with interrupted sutures, using 2-0 Vicryl suture , and the skin was closed in a continuous fashion using 4-0 Vicryl suture in a continuous fashion. Patient's subcutaneous tissues were very soft and the suture occasionally pulled through it. To provide extra support skin adhesive was applied to the incision. The area was cleansed, and an Aquacel dressing was applied . The patient tolerated the procedure well with no complications. MEASURED DATA: Right ventricular lead: R-wave sensing 7.8 mV [place] impedance 897 Ohms, threshold 0.4 volts at 0.4 milliseconds PROGRAMMING; VVI 60 Implants PACEMAKER INFORMATION: Pulse generator: Biotronik Edora 8 SR -T, serial [id number] Right ventricular lead: Biotronik Solia S 60, serial [id number] Estimated Blood Loss 5 Drains No Packing No Pathology none sent Complications No immediate complications Condition stable Disposition observation
--- NOTE | 2021-05-17 18:52 | PC.NURSE ---
RN gave report to eDlmer VILLALOBOS. Patient transported to room and hooked up to bedside tele monitor.
--- NOTE | 2021-05-17 19:00 | PC.NURSE ---
This patient, Yosef Rodríguez, was received from [facility] on 05/17/21 at 1850. Patient/family oriented to unit policies and routines.
[2021-05-17 20:07] LABS: NT Pro B Type Natriuretic Pept 1160 pg/mL (5-100)
--- NOTE | 2021-05-17 20:08 | PHAR ---
Brovana Inhalation Solution: 15 MCG/2 ML
[2021-05-17] MEDS: FUROSEMIDE 40 MG TABLET PO (20:11)
[2021-05-17] MEDS: CALCIUM CARBONATE (OSCAL) 500 MG TABLET 1000 MG PO (20:11)
[2021-05-17] MEDS: AMITRIPTYLINE HCL 10 MG TABLET PO (20:11)
[2021-05-17] MEDS: BUDESONIDE RESPULE NEB 0.5 MG/2 ML AMP INHALATION (21:56)
[2021-05-18] VITALS (10 sets, daily range): BP systolic 120–136; BP diastolic 84–93; PULSE 60–77; RESP 16–20; TEMP 36.3–36.4; O2SAT 95–100
[2021-05-18] MEDS: FUROSEMIDE INJ 40 MG/4 ML VIAL IV PUSH (06:59)
[2021-05-18] MEDS: BUDESONIDE RESPULE NEB 0.5 MG/2 ML AMP INHALATION (08:28)
--- NOTE | 2021-05-18 09:09 | PM.DS ---
DS: Admitting Diagnosis Admitting Diagnosis Admitting Diagnosis: Tachy-radha syndrome DS: Discharge Diagnosis Discharge Diagnosis (1) Bradycardia: Code(s): R00.1 - Bradycardia, unspecified Status: Acute Assessment and Plan: History of atrial fibrillation with slow ventricular response. Recent Holter monitor showed intermittent pauses and bradycardia despite beta blockers being discontinued. Therefore, patient was scheduled for elective permanent pacemaker placement. (2) Presence of permanent cardiac pacemaker: Code(s): Z95.0 - Presence of cardiac pacemaker Status: Acute Assessment and Plan: Underwent placement of Biotronik single chamber pacemaker yesterday. Today his incision is free from bleeding, hematoma, pain. Device was interrogated this morning and is functioning properly. PA/lat CXR confirmed lead placement and did not show any pneumothorax. DS: Summary Hospital Course Hospital Course: 76 year old patient with a history of atrial fibrillation with slow ventricular response. Outpatient monitoring showed intermittent pauses and bradycardia. Therefore, he elected to undergo permanent pacemaker implantation on 05/17/21. He received a Biotronik single chamber device and had no periprocedural complications. He was admitted to the hospital for monitoring. Today he is felling well following his procedure and reports mild soreness at the incision site. He does not have a hematoma, bleeding, or pain at the site. PA/lateral chest X ray performed this morning that confirmed lead placement and did not show pneumothorax. PPM settings VVI rate 60. Afib underlying rhythm. Patient is in stable condition and appropriate for discharge. Status at Discharge Overall status at discharge: patient is back to baseline Time Spent with Patient Time attestation: Total time spent providing and/or coordinating discharge services: Time spent: Greater than 30 minutes Exam Const: General: comfortable and no acute distress HENMT: Head: normal to inspection Eyes: General: appearance normal, both eyes and all related structures Pupils: Equal, round and reactive pupils present Neck: Neck: supple and no JVD (Impossible to assess due to body habitus) Resp: Effort & Inspection: normal respiratory effort Auscultation: clear to auscultation bilaterally and diminished lung sounds Cardio: Rate: regular rate Rhythm: regular rhythm Other: V paced, underlying rhythm atrial fibrillation GI: GI Palp: Yes Soft to palpation Auscultation: normal bowel sounds Skin: General skin exam: normal color Other: PPM incision free from bleeding, hematoma Neuro: Cognition (Neuro): normal cognition Speech: normal speech Extrem: General: normal to inspection, no edema and no pedal edema Psych: Mental Status: mental status grossly normal Affect: normal affect DS: Data Data Completed and Pending Labs on day of discharge: Labs from last 24 hours 05/17/21 05/17/21 05/17/21 19:36 12:41 12:41 WBC RBC Hgb Hct MCV MCH MCHC RDW Plt Count MPV Immature Gran % (Auto) Neut % (Auto) Lymph % (Auto) Harney % (Auto) Eos % (Auto) Baso % (Auto) Lymph # (Auto) Harney # (Auto) Eos # (Auto) Baso # (Auto) Abs Immat Gran (auto) Absolute Neuts (auto) Absolute Nucleated RBC Nucleated RBC % PT 14.3 INR 1.1 Sodium 141 Potassium 3.9 Chloride 107 Carbon Dioxide 26 Anion Gap 8 BUN 24 H Creatinine 1.50 H Estim Creat Clear Calc 54 Estimated GFR 46 L Glucose 86 Calcium 9.2 NT-Pro-B Natriuret Pep 1160 H 05/17/21 12:41 WBC 6.8 RBC 4.46 L Hgb 14.5 Hct 45.2 MCV 101.3 H MCH 32.5 MCHC 32.1 RDW 15.7 H Plt Count 201 MPV 9.9 Immature Gran % (Auto) 0.4 Neut % (Auto) 73.1 Lymph % (Auto) 17.3 L Harney % (Auto) 7.9 Eos % (Auto) 0.7 Baso % (Auto) 0.6 Lymph # (Auto) 1.18 Harney # (Auto) 0.5 Eo
[2021-05-18] MEDS: CALCIUM CARBONATE (OSCAL) 500 MG TABLET 1000 MG PO (10:24)
[2021-05-18] MEDS: ROSUVASTATIN 10 MG TABLET 40 MG PO (10:24)
[2021-05-18] MEDS: ASPIRIN 81 MG CHEWABLE TABLET PO (10:24)
[2021-05-18] MEDS: CYANOCOBALAMIN 1,000 MCG TABLET 1000 MCG PO (10:25)
[2021-05-18] MEDS: amLODIPine BESYLATE 5 MG TABLET PO (10:25)
[2021-05-18] MEDS: allopurinoL 100 MG TABLET PO (10:25)
[2021-05-18] MEDS: PANTOPRAZOLE 40 MG TABLET PO (10:26)
[2021-05-18] MEDS: CHOLECALCIFEROL 400 UNITS TABLET (VIT D) PO (10:27)
[2021-05-18] MEDS: HYDROcodone/acetaminophen (*CRX) 5-325 MG TABLET 2 TAB PO (10:27)
[2021-05-18] MEDS: lisinopriL 20 MG TABLET 40 MG PO (10:28)
== END 2021-05-18 11:55 | disposition home or self-care (01) ==
LOC: ANHCATHLAB 12:56 → ANHIMU 23:38 → ANHCPC 05-24 11:48 → ANHIMU 06-20 06:56
PROVIDERS: PCP Family Medicine; Visit Provider Internal Medicine Cardiovascular Disease
PROC: 0JH604Z Insertion of Pacemaker, Single Chamber into Chest Subcutaneous Tissue and Fascia, Open Approach (ICD-10-PCS; CPT 33210; principal; 2021-05-17 13:00)
DX: I49.5 Sick sinus syndrome (principal); I48.19 Other persistent atrial fibrillation; I48.0 Paroxysmal atrial fibrillation; E66.01 Morbid (severe) obesity due to excess calories; Z68.41 Body mass index [BMI] 40.0-44.9, adult; Z79.01 Long term (current) use of anticoagulants; J44.9 Chronic obstructive pulmonary disease, unspecified; I13.0 Hypertensive heart and chronic kidney disease with heart failure and stage 1 through stage 4 chronic kidney disease, or unspecified chronic kidney disease; Z86.73 Personal history of transient ischemic attack (TIA), and cerebral infarction without residual deficits; M19.90 Unspecified osteoarthritis, unspecified site; Z99.81 Dependence on supplemental oxygen; Z79.82 Long term (current) use of aspirin; G47.33 Obstructive sleep apnea (adult) (pediatric); J96.11 Chronic respiratory failure with hypoxia; N18.32 Chronic kidney disease, stage 3b; I50.9 Heart failure, unspecified
CPT/HCPCS: 33207; 36415; 71045; 71046; 80048; 83880; 85025; 85610; 94640; A4565; A9270; C1779; C1786; J1940; J2250; J2704; J3010; J3370; J7040

== ENCOUNTER 2021-08-28 09:18 | Outpatient (CLI) | payer MEDICARE, SELFPAY ==
--- NOTE | ~2021-08-28 | CT_ITS ---
EXAMINATION: CT lung screening DATE: 08/28/2021 09:40 INDICATION: History of tobacco dependence TECHNIQUE: Computed tomography (CT) of the chest was performed without intravenous contrast. The dose -length product was 387.82 mGy-cm. Automated exposure control and iterative reconstruction technique were employed. COMPARISON: CT dated 04/16/2018 FINDINGS: Cardiomegaly. No significant pleural or pericardial effusion. Mild mediastinal lymphadenopa thy, likely reactive, unchanged. There is a pacemaker lead present. 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 There is a probable gastric diverticulum at the fundus there is severe emphys juan. There is chronic subpleural banding and chronic interstitial lung disease of the periphery. Della re emphysema. There is a 5 mm left upper lobe nodule, image 55. Calcified right upper lobe nodule. Mi ld thoracic spondylosis. There are healed left rib fractures. IMPRESSION: 1. Lung-RADS category 2: Benign appearance or behavior. Continue annual screening with noncontrast lo w-dose chest CT in 12 months. Reviewed, dictated and finalized at location B. IMPRESSION: 1. Lung-RADS category 2: Benign appearance or behavior. Continue annual screeni ng with noncontrast low-dose chest CT in 12 months.
== END 2021-08-28 09:19 | disposition home or self-care (01) ==
LOC: ANHIMG 09:21
PROVIDERS: PCP Family Medicine; Visit Provider Internal Medicine Critical Care Medicine
DX: Z12.2 Encounter for screening for malignant neoplasm of respiratory organs (principal); Z87.891 Personal history of nicotine dependence
CPT/HCPCS: 71271

== ENCOUNTER 2021-08-31 07:54 | Outpatient (CLI) | payer MEDICARE, SELFPAY ==
[2021-08-31 09:00] VITALS: PULSE 80; O2SAT 96
[2021-08-31 09:05] VITALS: PULSE 110; O2SAT 87
[2021-08-31 09:06] VITALS: O2SAT 92
[2021-08-31 09:15] VITALS: PULSE 86; O2SAT 95
--- NOTE | 2021-08-31 10:40 | HOMEO2EVAL ---
Evaluation was performed at [facility] Home Oxygen Evaluation RC: Home Oxygen (O2) Evaluation Start: 08/31/21 10:37 Freq: Status: Active Protocol: RPE Activity Type Activity Date Activity User E-Sign Co-Sign Detail Recorded Client Recorded Date Recorded By Document 08/31/21 09:00 DJO [id number] 08/31/21 10:40 DJO Document 08/31/21 09:05 [email or web address] [email or web address] 08/31/21 10:40 DJO Document 08/31/21 09:06 [email or web address] [email or web address] 08/31/21 10:40 DJO Document 08/31/21 09:15 [email or web address] [email or web address] 08/31/21 10:40 DJO 08/31/21 08/31/21 08/31/21 09:00 09:05 09:06 Home O2 Evaluation Test Phase Resting Exercise Exercise Oxygen Delivery Room Air Room Air Nasal Cannula Oxygen Flow Rate (L/min) 1 Pulse Oximetry (90-100 %) 96 87 L 92 Pulse Rate (60-100 beats/min) 80 110 H Ambulation Distance (feet) 600 Home Oxygen Evaluation Comments PT REQUIRES 1 L WITH ACTIVITY. ROOM AIR AT REST Treatment Charges O2 Evaluation - Outpatient 08/31/21 09:15 Home O2 Evaluation Test Phase Resting Oxygen Delivery Room Air Oxygen Flow Rate (L/min) Pulse Oximetry (90-100 %) 95 Pulse Rate (60-100 beats/min) 86 Ambulation Distance (feet) Home Oxygen Evaluation Comments Treatment Charges
--- NOTE | 2021-08-31 10:41 | PCRCNOTE ---
HOME O2 EVAL FAXED TO DR CAMARENA OFFICE STAFF
--- NOTE | 2021-08-31 14:03 | WPDPFTINT ---
PFT Procedure Performed PFT Procedure Performed Spirometry with Pre/Post Bronchodilator Plethysmography (Lung Vol) Diffusing Cap (DLCO) Flow Vol Loop PFT Interpretation This is a pulmonary function test with pre and post-bronchodilator spirometry, plethysmography and diffusing capacity. The test was performed and results interpreted in accordance with the 2019 and 2005 ATS/ERS Task Force guidelines respectively using the Global Lung Function Initiative-2012 reference equations. Patient demonstrated good effort and cooperation. Reproducibility criteria were met. The quality of the pre bronchodilator spirometry maneuver was Grade A and post bronchodilator spirometry maneuver was Grade A. Findings: Spirometry: There is decreased maximal expiratory airflow at all lung volumes with concave expiratory flow tracing. The pre bronchodilator FVC is 3.15 L, 77% predicted. The pre bronchodilator FEV1 is 1.88 L, 61% predicted. The FEV1: FVC ratio 60%. The post bronchodilator FVC is 3.40 L, representing a 8% increase. The post bronchodilator FEV1 is 2.13 L, representing a 13% increase. Plethysmography: The total lung capacity is 4.49 L, 64% predicted. The functional residual capacity is 2.02 L, 53% predicted. The residual volume is 1.33 L, 53% predicted. Diffusing capacity: The absolute diffusion capacity is 12.5, 50% predicted. The diffusing capacity corrected for alveolar volume is 3.08, 81% predicted. Impression: There is a combined obstructive and restrictive ventilatory abnormality. There are no guidelines to assign the severity of obstruction and restriction with a combined abnormality. In my opinion, given the concave expiratory flow tracing and moderately decreased FEV1:FVC ratio and mild restrictive abnormality I would state there is a moderate obstructive abnormality and a mild restrictive abnormality resulting in a moderately decreased FEV1. There is significant improvement after inhaling a single dose of albuterol. The diffusing capacity is moderately decreased but normalizes when corrected for alveolar volume. There are no prior studies for comparison
== END 2021-08-31 07:55 | disposition home or self-care (01) ==
PROVIDERS: PCP Family Medicine; Visit Provider Internal Medicine Critical Care Medicine
DX: J43.9 Emphysema, unspecified (principal); J96.10 Chronic respiratory failure, unspecified whether with hypoxia or hypercapnia; Z99.81 Dependence on supplemental oxygen
CPT/HCPCS: 94060; 94618; 94726; 94729

== ENCOUNTER 2021-09-23 16:03 | Inpatient (IN) | payer MEDICARE, SELFPAY ==
[2021-09-23] VITALS (26 sets, daily range): BP systolic 123–179; BP diastolic 78–98; PULSE 64–79; RESP 15–27; TEMP 36.5–36.7; O2SAT 91–100; BMI 51.2
--- NOTE | ~2021-09-23 | CT_ITS ---
EXAMINATION:CT diagnostic chest wo con DATE: 09/27/2021 10:24 INDICATION: Thoracic aortic aneurysm. Chest pain. TECHNIQUE: Computed tomography (CT) of the chest was performed without intravenous contrast. Automate d exposure control and iterative reconstruction technique were employed. The dose-length product (DLP ) was 809.41 mGy-cm. COMPARISON: Chest CT 08/28/2021, CT abdomen and pelvis 05/04/2019 FINDINGS: There is severe emphysema. There is widespread chronic peripheral septal thickening in the lungs with a lower lung predominance. There are acute scattered part-solid nodules in all lobes in a random distribution, new from 08/28/21. A calcified right lung nodule and calcified right hilar lymph nodes are consistent with old granulomatous disease. No pleural effusion. Cardiomegaly is noted. The re are coronary artery calcifications. No pericardial effusion. There is a left chest pacer with lead in right ventricle. The aorta measures 4.8 cm at the sinuses of Valsalva, 4.3 cm at the sinotubular junction, 4.6 cm in the mid ascending aorta, 3.9 cm at the aortic isthmus, and 3.6 cm in the mid desc ending aorta. There is a diverticulum of the fundus of the stomach. There are cysts in right kidney m easuring up to 2.3 cm. There are hemorrhagic cysts in right kidney measuring up to 12 mm. There is mo derate thoracic spondylosis. Thoracic dextroscoliosis is noted. IMPRESSION: 1. 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 2. Acute part-solid nodules in all lobes in a random distribution, consistent with pneumonia. 3. Severe emphysema. Reviewed, dictated and finalized at location A. ALS COORDINATOR IMPRESSION: 1. 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 2. Acute part-solid nodules in all lobes in a random distribution, consistent w ith pneumonia. 3. Severe emphysema.
--- NOTE | ~2021-09-23 | XR_ITS ---
EXAMINATION: XR chest 2V DATE: 09/23/2021 16:50 INDICATION: Midsternal chest tightness with inspiration. TECHNIQUE: Frontal and lateral views of the chest were obtained. COMPARISON: Chest 2 views 05/18/2021, chest CT 08/28/2021 FINDINGS: The lungs are hyperexpanded with lucencies and a chronic interstitial pattern, consistent w ith emphysema. No pleural effusion or pneumothorax. Cardiomegaly is noted. There is a left chest pace r with lead in right ventricle. Mediastinal lipomatosis is noted. IMPRESSION: 1. Emphysema. 2. Cardiomegaly. Reviewed, dictated and finalized at location A. E ELIMINATION
--- NOTE | 2021-09-23 16:39 | PC.NURSE ---
pts upset that 2 people have been called in ahead of her . made aware that we have to triage in order of aquity. pt states im not dealing with this shit and left with .
--- NOTE | 2021-09-23 16:41 | ECG_ITS ---
Measurements Intervals [place] Rate: 71 P: GA: 0 QRS: -64 QRSD: 129 T: 125 QT: 362 QTc: 396 Interpretive Statements ELECTRONIC VENTRICULAR PACEMAKER WITH INHIBITION UNDERLYING ATRIAL FIBRILLATION INTRAVENTRICULAR CONDUCTION DELAY BASELINE ARTIFACT- I, III, AVR, AVL, AVF NO FURTHER INTERPRETATION IS POSSIBLE ABNORMAL ECG Electronically Signed On 09-23-2021 20:21:18 PNEUMATIC HOIST OPERATOR by Herberth Martinez D.O.
[2021-09-23 17:45] LABS: Basophils Percent Auto 0.3 % (0.2-1.2); Eosinophils Percent Auto 0.2 % (0-4.4); Hematocrit 46.4 % (42.0-52.0); Hemoglobin 15.6 g/dL (14.0-18.0); Immature Granulocyte Absolute 0.04 K/mm3 (0.00-0.031); Immature Granulocyte Percent A 0.4 % (0-0.5); Lymphocytes Absolute Auto 0.78 K/mm3 (0.9-3.2); Mean Corpuscular HGB Conc 33.6 g/dl (32-36); Mean Corpuscular Hemoglobin 33.3 pg (26-34); Mean Corpuscular Volume 99.1 fl (80-100); Mean Platelet Volume 10.5 fl (7.4-10.4); Monocytes Absolute Auto 0.9 K/mm3 (0.1-0.6); Monocytes Percent Auto 7.8 % (2.6-8.5); Neutrophils Absolute Auto 9.4 K/mm3 (1.3-6.7); Neutrophils Percent Auto 84.3 % (45.5-73.1); Platelet Count Result 211 k/mm3 (150-375); Red Blood Count 4.68 M/mm3 (4.6-6.20); Red Cell Distribution Width 14.5 % (11.5-14.5); White Blood Count 11.1 K/mm3 (4.5-10.0)
[2021-09-23 17:55] LABS: INR 1.2; Prothrombin Time 14.7 Seconds (11.1-14.7)
[2021-09-23 17:56] LABS: Anion Gap 9 mmol/L (8-16); Blood Urea Nitrogen 27 mg/dL (9-20); Calcium 8.9 mg/dL (8.4-10.2); Carbon Dioxide 27 mmol/L (22-30); Chloride 104 mmol/L (98-107); Estimated CRCL calculation 70 ml/min; Estimated Glomerular Filt Rate 59; Glucose 112 mg/dL (65-110); Partial Thromboplastin Time 32.2 SECONDS (22.3-36.8); Potassium 3.8 mmol/L (3.4-5.0); Sodium 140 mmol/L (137-145)
[2021-09-23 18:08] LABS: Troponin I 0.018 ng/mL (0.000-0.034)
--- NOTE | 2021-09-23 18:14 | ED.CHESTPAIN ---
HPI - Chest Pain General Chief Complaint: Chest Pain Stated Complaint: sob Time Seen by Provider: 09/23/21 17:13 Source: RN notes reviewed History of Present Illness HPI narrative: Patient presents emergency department from home for chest pain. Patient states he has had intermittent left-sided chest pain that goes through his back and between his shoulder blades. Pain described as a pressure in nature and is intermittent. Patient does seem to be worse with breathing but is not always this way. She does have a history of COPD and is normally on no oxygen during the day and 2 L at night. States he does have cardiac history and is followed by Dr. Perez he does note some mild increased shortness of breath he denies any fevers or chills abdominal pain nausea vomiting or any other symptoms Related Data Home Medications Medication Instructions Recorded Confirmed cholecalciferol (vitamin D3) 10 400 unit PO DAILY 09/21/19 07/24/21 mcg (400 unit) capsule cyanocobalamin (vitamin B-12) 1,000 mcg PO DAILY 09/21/19 07/24/21 1,000 mcg tablet magnesium oxide 500 mg tablet 500 mg PO BID 09/21/19 07/24/21 omeprazole 20 mg capsule,delayed 20 mg PO DAILY 09/21/19 07/24/21 release potassium chloride 20 mEq 20 meq PO QMWFSA 09/21/19 07/24/21 tablet,extended release furosemide 40 mg tablet 40 mg PO BID tablet 09/30/19 07/24/21 calcium carbonate 500 mg calcium 1,000 mg PO TID 12/14/19 07/24/21 (1,250 mg) capsule rosuvastatin 40 mg tablet 40 mg PO DAILY 03/23/20 07/24/21 arformoterol [Brovana] 2 ml INHALATION BID 04/01/21 07/24/21 fluticasone propionate 50 1 spray INTRANASAL DAILY 08/09/21 mcg/actuation nasal spray,suspension Allergies Allergy/AdvReac Type Severity Reaction Status Date / Time levofloxacin Allergy Unknown unk Verified 08/09/21 11:54 Penicillins Allergy Unknown unk Verified 08/09/21 11:54 Review of Systems Review of Systems: Gen.: Denies fevers or chills ENT: Denies congestion Respiratory: Reports shortness of breath CV: Reports chest pain GI: Denies abdominal pain nausea, emesis or diarrhea Musculoskeletal: Denies back pain or muscle pain Neuro: Denies numbness, tingling, weakness or focal weakness Skin: Denies rash Except as documented, all other systems reviewed and negative [facility] Past Medical History Medical History Acute CVA (cerebrovascular accident) Acute dehydration Acute kidney injury Acute on chronic kidney failure Acute sinusitis At high risk for falls Bradycardia Candidiasis of other urogenital sites Chronic kidney disease (CKD) stage G3b/A1, moderately decreased glomerular filtration rate (GFR) between 30-44 mL/min/1.73 square meter and albuminuria creatinine ratio less than 30 mg/g Chronic respiratory failure COPD exacerbation Emphysematous bleb History of CVA (cerebrovascular accident) History of tobacco abuse Morbid obesity with BMI of 40.0-44.9, adult Obstructive sleep apnea Presence of permanent cardiac pacemaker Severe chronic obstructive pulmonary disease Supplemental oxygen dependent Surgical History Surgical History H/O foot surgery Hammer toe surgery on the 2nd and 3rd toe on the right foot. H/O hernia repair History of appendectomy History of lung surgery extraction of a blood that was grapefruit size from the right lung. Family History Family History Mother Patient's mother is , Onset Age: 85 Diabetes mellitus Hypertension Sibling Patient's brother is , Onset Age: 64 Family history of cardiovascular disease Father Family history of primary malignant neoplasm of liver, Onset Age: 31 Social History Social History Social History: . 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 The
[2021-09-23] MEDS: ASPIRIN 81 MG CHEWABLE TABLET 324 MG PO (19:41)
--- NOTE | 2021-09-23 19:49 | PC.NURSE ---
Addendum entered by Martina Diaz RN 09/23/21 19:51: Pt's reports she brought home bipap because hospital did not have equipment that was equivalent. called respiratory, and advised to bring machine from home. Original Note: Pt resting in bed on 3L O2 per NC. denies chest pain. chronic, congested, nonproductive cough. a/o x 4. aspirin given as ordered.
--- NOTE | 2021-09-23 19:55 | PM.IMHP ---
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 Patient presented to the emergency due to chest discomfort he has been his usual state of health he denies any dizziness, lightheadedness, near-syncope, syncope, no cough no sputum production, no PND no orthopnea, patient has chronic bilateral lower extremity lymphedema but is wearing his compression stockings, he denies any nausea, vomiting, abdominal pain or diarrhea, no fevers, no rigors, no chills. Preliminary workup was significant for ECG with atrial fibrillation, troponin of 0.038 and a brain natriuretic peptide of 1160. A chest x-ray showed emphysema and cardiomegaly. Decision has been made to admit the patient for further management evaluation and treatment. Review of Systems Review of Systems: Chest discomfort Constitutional: Constitutional: Denies chills, Denies fatigue, Denies fever(s), Denies malaise and Denies weakness Eyes: Eyes: Denies change in vision ENT: Denies dysphagia, Denies vertigo, Denies dizziness, Denies nasal congestion, Denies nasal discharge, Denies nasal obstruction and Denies odynophagia Cardiovascular: Cardiovascular: Denies syncope, Denies pedal edema, Denies edema, Denies irregular heart rhythm, Denies lightheadedness, Denies radiating jaw, neck or arm pain, Denies palpitations, Denies dyspnea, Denies dyspnea on exertion and Denies orthopnea Comments: Chest discomfort Respiratory: Respiratory: Denies chest congestion, Denies cough, Denies dyspnea and Denies wheezing Gastrointestinal: Gastrointestinal: Denies abdominal pain, Denies dyspepsia, Denies heartburn, Denies diarrhea, Denies nausea and Denies vomiting Genitourinary: Genitourinary: Denies dysuria and Denies flank pain Musculoskeletal: Musculoskeletal: Denies myalgias and Denies arthralgias Integumentary/Breasts: Skin/Breast: Denies rash Neurologic: Denies vertigo, Denies dizziness, Denies syncope, Denies focal weakness, Denies Sensory deficit (Neuro) and Denies weakness Psychiatric: Psychiatric: Denies change in appetite Endocrine: Endocrine: Reports no additional endocrine complaints and Reports as per HPI Hematologic/Lymphatic: Hematologic/Lymphatic: Reports no additional hematologic/lymphatic complaints and Reports as per HPI Allergic/Immunologic: Allergic/Immunologic: Reports no additional allergic/immunologic complaints and Reports as per HPI [facility] Past Medical History Medical History (Updated 09/24/21 @ 01:37 by Melissa Barbosa MD) Acute CVA (cerebrovascular accident) Acute dehydration Acute kidney injury Acute on chronic kidney failure Acute sinusitis At high risk for falls Bradycardia Candidiasis of other urogenital sites Chronic kidney disease (CKD) stage G3b/A1, moderately decreased glomerular filtration rate (GFR) between 30-44 mL/min/1.73 square meter and albuminuria creatinine ratio less than 30 mg/g Chronic respiratory failure COPD exacerbation Emphysematous bleb History of CVA (cerebrovascular accident) History of tobacco abuse Morbid obesity with BMI of 40.0-44.9, adult Obstructive sleep apnea Presence of permanent cardiac pacemaker Severe chronic obstructive pulmonary disease Supplemental oxygen dependent Surgical History Surgical History H/O foot surgery Hammer toe surgery on the 2nd and 3rd toe on the right foot. H/O hernia repair History of appendectomy History of lung surgery extraction of a blood that was grapefruit size from the right lung. Family History Family History Mother
[2021-09-23 20:23] LABS: Troponin I 0.025 ng/mL (0.000-0.034)
--- NOTE | 2021-09-23 22:00 | ADMGEN ---
This patient, Yosef Rodríguez, was admitted to IMU Room 212-01. Patient/family oriented to hospital policies and general routines including ID bracelet, bed and alarms, visiting hours, pain management, procedures, bathroom and other care routines, personal items, smoking policy, room service/diet, and visiting hours. Information on how to activate the Rapid Response Team has been discussed. Patient/Family are encouraged to report perceived risks to care and to ask questions if they do not understand what they are told or what they should do.
[2021-09-23 23:20] LABS: Troponin I 0.038 ng/mL (0.000-0.034)
[2021-09-24] VITALS (24 sets, daily range): BP systolic 109–146; BP diastolic 77–91; PULSE 60–89; RESP 16–24; TEMP 36.2–36.6; O2SAT 91–100
--- NOTE | 2021-09-24 | ECHO_ITS ---
Patient Info Name: Yosef Rodríguez Age: 76 years : 1945 Gender: Male Ht: 68 in Wt: 337 lbs BSA: 2.80 m2 HR: 63 bpm BP: 109 / 77 mmHg Heart Rhythm: Sinus Rhythm Technical Quality: Fair Exam Date: 09/24/2021 2:56 PM Exam Location: [facility] Pulmonary Exam Room: 212 Patient Status: Inpatient Admit Date: 09/24/2021 Staff Ordering Physician: Sal Elliott MD Field Examiner: Rand Coates RDCS Attending Provider: Melissa Barbosa MD Referring Physician: Lexi RATLIFF; Exam Type: CA echo dop color flow w con Study Info Indications - ELEVATED TROPONINS Complete two-dimensional, color flow and Doppler transthoracic echocardiogram is performed with contrast to opacify the left ventricle and to improve the deliniation of the left ventricle endocardial borders. Contrast/Agitated Saline Contrast/Ag. Saline: Definity Amount: 1.00 ml Administered By: Priscila Sales RN Existing IV Access: Yes IV Access Condition: patent with no signs of infiltration Summary 1. There is mild concentric increased left ventricular wall thickness. 2. Left ventricular systolic function is normal, estimated at 55-60%. 3. Right ventricular chamber dimension is normal. 4. Severe biatrial enlargement. 5. No significant valve disease. Left Ventricle Left ventricular chamber dimension is normal. Left ventricular systolic function is normal, estimated at 55-60%. There is mild concentric increased left ventricular wall thickness. The left ventricular diastolic function is grade I diastolic dysfunction. Right Ventricle Right ventricular chamber dimension is normal. Left Atria Left atrial chamber dimension is severely enlarged. Right Atria Right atrial chamber dimension is severely enlarged. Aortic Valve The aortic valve is normal. There is mild aortic valve sclerosis. Pulmonic Valve The pulmonic valve is not well visualized. Mitral Valve The mitral valve has normal leaflets. Tricuspid Valve The tricuspid valve leaflets are normal. Pericardium/Pleural The pericardium appears normal. Aorta The aortic root size at the sinus of Valsalva is normal. Left Ventricular Outflow Tract Name Value Normal LVOT 2D LVOT Diameter 2.13 cm LVOT Doppler LVOT Peak Gradient 5 mmHg LVOT Mean Gradient 2 mmHg LVOT VTI 20.81 cm LVOT VTI/AV VTI Ratio 1.06 LVOT Stroke Volume 74.14 ml LVOT CO 15.69 l/min LVOT CI 5.61 L/min/m2 Pulmonic Valve Name Value Normal PV Doppler PV Peak Gradient 1 mmHg Mitral Valve Name
[2021-09-24] MEDS: APIXABAN 5 MG TABLET PO ×2 (00:14→08:27)
[2021-09-24] MEDS: AMITRIPTYLINE HCL 10 MG TABLET PO ×2 (00:14→20:13)
[2021-09-24] MEDS: ROSUVASTATIN 10 MG TABLET 40 MG PO (08:26)
[2021-09-24] MEDS: CHOLECALCIFEROL 400 UNITS TABLET (VIT D) PO (08:27)
[2021-09-24] MEDS: CALCIUM CARBONATE (OSCAL) 500 MG TABLET 1000 MG PO ×3 (08:27→16:41)
[2021-09-24] MEDS: FLUTICASONE PROPIONATE 0.05% NA SPR 16 GM BTL (*BKC) 1 SPRAY NASAL (08:27)
[2021-09-24] MEDS: POTASSIUM CHLORIDE 20 MEQ TABLET.ER PO (08:27)
[2021-09-24] MEDS: PANTOPRAZOLE 40 MG TABLET PO (08:27)
[2021-09-24] MEDS: allopurinoL 100 MG TABLET PO (08:28)
[2021-09-24] MEDS: FUROSEMIDE 40 MG TABLET PO ×2 (08:28→16:41)
[2021-09-24] MEDS: lisinopriL 20 MG TABLET 40 MG PO (08:28)
[2021-09-24] MEDS: amLODIPine BESYLATE 5 MG TABLET PO (08:28)
[2021-09-24] MEDS: CYANOCOBALAMIN 1,000 MCG TABLET 1000 MCG PO (08:28)
[2021-09-24] MEDS: MAGNESIUM OXIDE 400 MG TABLET PO ×2 (08:30→16:41)
--- NOTE | 2021-09-24 09:26 | PM.IMPN ---
Progress Note: A&P Assessment and Plan (1) Chest pain: Code(s): R07.9 - Chest pain, unspecified Status: Acute Assessment and Plan: Suspect ACS Trop 0.025-->0.038 Cardiology consulted, recommendations appreciated Plan for CC tomorrow or Friday Eliquis on hold (2) Atrial fibrillation with slow ventricular response: Code(s): I48.91 - Unspecified atrial fibrillation Status: Acute Assessment and Plan: Patient is anticoagulated, on hold for cc Pacemaker in place Continue to monitor (3) Presence of permanent cardiac pacemaker: Code(s): Z95.0 - Presence of cardiac pacemaker Status: Acute Assessment and Plan: Continue to monitor (4) Obstructive sleep apnea: Code(s): G47.33 - Obstructive sleep apnea (adult) (pediatric) Status: Acute Assessment and Plan: Patient uses CPAP at nighttime and brought his own (5) Chronic respiratory failure: Code(s): J96.10 - Chronic respiratory failure, unspecified whether with hypoxia or hypercapnia Status: Acute Assessment and Plan: On supplemental oxygen Continue home meds Continue to monitor (6) Supplemental oxygen dependent: Code(s): Z99.81 - Dependence on supplemental oxygen Status: Acute Assessment and Plan: Continue supplemental oxygen At baseline currently (7) COPD with emphysema: Code(s): J43.9 - Emphysema, unspecified Status: Acute Assessment and Plan: No acute exacerbation Continue home meds (8) Chronic kidney disease (CKD) stage G3b/A1, moderately decreased glomerular filtration rate (GFR) between 30-44 mL/min/1.73 square meter and albuminuria creatinine ratio less than 30 mg/g: Code(s): N18.3 - Chronic kidney disease, stage 3 (moderate) Status: Acute Assessment and Plan: Creatinine at patient's baseline Continue to monitor (9) Idiopathic chronic gout, unspecified ankle and foot, without tophus (tophi): Code(s): M1A.0790 - Idiopathic chronic gout, unspecified ankle and foot, without tophus (tophi) Status: Acute Assessment and Plan: Continue allopurinol Continue to monitor (10) BPH without obstruction/lower urinary tract symptoms: Code(s): N40.0 - Benign prostatic hyperplasia without lower urinary tract symptoms Status: Acute Assessment and Plan: Appears the patient is not on finasteride or tamsulosin (11) Gastro-esophageal reflux disease without esophagitis: Code(s): K21.9 - Gastro-esophageal reflux disease without esophagitis Status: Acute Assessment and Plan: PPI as needed Subjective Date/time seen: 09/24/21 09:26 Interval history: Pt seen this a.m.; labs, vs, diagnostic test, consult note reviewed; no acute events overnight; pt denies any increased SOB, or CP Review of Systems Review of Systems: All systems reviewed & are unremarkable except as noted in HPI and below Exam Const: General: no acute distress, alert and awake Orientation/consciousness: patient oriented x3 HENMT: Head: normocephalic and atraumatic Ears: hearing grossly normal bilaterally Face and sinus: face symmetric Mouth: Yes Normal oral and palatal mucosa present Eyes: EOM: EOMs intact bilaterally Neck: Neck: full ROM, trachea midline and no JVD Chest: Chest palpation & inspection: normal inspection of the chest Resp: Effort & Inspection: normal respiratory effort Auscultation: clear to auscultation bilaterally Cardio: Jugular venous distension: no JVD Rate: regular rate Rhythm: regular rhythm Heart sounds: S1 normal heart sound present and S2 normal heart sound present GI: Inspection: normal to inspection GI Palp: Yes Soft to palpation Percussion: Yes normal to percussion Auscultation: normal bowel sounds : General: Yes no CVA tenderness Back/Spine/Pelvis: Back: no CVA tenderness Skin: General skin exam: normal color Rashes: no rashes Neuro: General: patient
[2021-09-24] MEDS: BUDESONIDE RESPULE NEB 0.5 MG/2 ML AMP INHALATION ×2 (09:44→20:17)
--- NOTE | 2021-09-24 09:47 | PM.CNCAR ---
Assessment and Plan Assessment and plan (1) Elevated troponin: Code(s): R77.8 - Other specified abnormalities of plasma proteins Status: Acute Assessment and Plan: Troponins have trended positive. Likely consistent with a non ST elevation myocardial infarction. Chest pain which did radiate to the left shoulder area is concerning any does have several risk factors for coronary disease. Therefore after discussing the risks benefits alternatives of cardiac catheterization versus possible stress testing to evaluate for ischemic burden, patient is agreeable to pursue coronary angiogram. Risks discussed included renal dysfunction, stroke, , myocardial infarction, bleeding, pain, infection. He verbalizes understanding and is agreeable. His Eliquis will be held. He will be kept NPO for possible angiogram tomorrow but angiogram may not happen until Friday given timing of last Eliquis dose. Aspirin 81 mg p.o. daily to be started. 2D echocardiogram with Doppler will be ordered and reviewed. Continue statin, lisinopril, amlodipine. (2) Presence of permanent cardiac pacemaker: Code(s): Z95.0 - Presence of cardiac pacemaker Status: Acute Assessment and Plan: Ppm implanted in May 2021. (3) Atrial fibrillation: Code(s): I48.91 - Unspecified atrial fibrillation Status: Acute Assessment and Plan: On anticoagulation. (4) Chest pain: Code(s): R07.9 - Chest pain, unspecified Status: Acute Assessment and Plan: Concerning for ACS (5) Chronic kidney disease (CKD) stage G3b/A1, moderately decreased glomerular filtration rate (GFR) between 30-44 mL/min/1.73 square meter and albuminuria creatinine ratio less than 30 mg/g: Code(s): N18.3 - Chronic kidney disease, stage 3 (moderate) Status: Acute (6) Chronic respiratory failure: Code(s): J96.10 - Chronic respiratory failure, unspecified whether with hypoxia or hypercapnia Status: Acute Assessment and Plan: On intermittent supplemental oxygen especially with activity (7) Essential (primary) hypertension: Code(s): I10 - Essential (primary) hypertension Status: Acute Assessment and Plan: Continue current meds. Blood pressure is reasonably controlled today History of Present Illness History of Present Illness Consult date/time: 09/24/21 09:47 Requesting physician: Kris Ledesma DO Consult reason: chest pain Reason For Visit: Chest Pain Narrative: Date of service 09/24/2021: Reason for consultation: Chest pain Ordering provider: Dr. Ledesma History: Patient is a 76-year-old male patient of Dr. Iyer who presented to the emergency department because of chest pain. He does have a history of paroxysmal atrial fibrillation and is on chronic anticoagulation. 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 Carroll. Patient was in his usual state of health until 2 days ago. He had guests over to his house and had a late night. He went to bed about 1:00 a.m. on Friday morning. He started to notice anterior chest pains which she describes as discomfort and tightness. It did radiate to his left shoulder blade and left shoulder area and into the left upper arm. It would wax and wane and last for 30 minutes or so at a time. It was also worsened by breathing. He does take Eliquis for anticoagulation and has not missed any doses. Because of the continued off and on symptoms he came to the emergency department yesterday morning. He was given 3 baby aspirins and was admitted for chest pain. His troponins have trended positive and most recent troponin is 0.038. He currently is pain-free. He does have chronic lower extremity swelling and wears compression stockings and takes diuretics. He does have a history of previous stroke. He is on Eliquis. He denies any syncope, paroxysmal nocturnal dyspnea, orthopnea, palpi
--- NOTE | 2021-09-24 12:14 | PHAR ---
HOME MED VERIFIED
--- NOTE | 2021-09-24 12:14 | PHAR ---
HOME MED VERIFIED = BROVANA 15 MCG 4 X 2 ML UNIT DOSE VIALS FOR INHALATION
--- NOTE | 2021-09-24 13:00 | PHAR ---
HOME MED VERIFIED BROVANA 15MCG/2ML INHALE 2ML VIA NEBULIZER Q12H
[2021-09-24] MEDS: PERFLUTREN LIPID MICROSPHERES 1.5 ML VIAL DILUTED TO 10 ML TOTAL VOLUME IV PUSH (14:30)
[2021-09-25] VITALS (22 sets, daily range): BP systolic 118–145; BP diastolic 77–88; PULSE 60–81; RESP 16–22; TEMP 36.4–37.1; O2SAT 93–100
[2021-09-25] MEDS: BUDESONIDE RESPULE NEB 0.5 MG/2 ML AMP INHALATION ×2 (08:31→21:24)
[2021-09-25] MEDS: ROSUVASTATIN 10 MG TABLET 40 MG PO (08:35)
[2021-09-25] MEDS: CALCIUM CARBONATE (OSCAL) 500 MG TABLET 1000 MG PO ×3 (08:35→16:46)
[2021-09-25] MEDS: lisinopriL 20 MG TABLET 40 MG PO (08:35)
[2021-09-25] MEDS: amLODIPine BESYLATE 5 MG TABLET PO (08:35)
[2021-09-25] MEDS: CYANOCOBALAMIN 1,000 MCG TABLET 1000 MCG PO (08:35)
[2021-09-25] MEDS: PANTOPRAZOLE 40 MG TABLET PO (08:35)
[2021-09-25] MEDS: ASPIRIN 81 MG ENTERIC TABLET PO (08:36)
[2021-09-25] MEDS: FLUTICASONE PROPIONATE 0.05% NA SPR 16 GM BTL (*BKC) 1 SPRAY NASAL (08:36)
[2021-09-25] MEDS: CHOLECALCIFEROL 400 UNITS TABLET (VIT D) PO (08:36)
[2021-09-25] MEDS: allopurinoL 100 MG TABLET PO (08:36)
[2021-09-25] MEDS: MAGNESIUM OXIDE 400 MG TABLET PO ×2 (08:36→16:46)
[2021-09-25 08:48] LABS: Albumin Level 4.2 g/dL (3.5-5.1); Anion Gap 9 mmol/L (8-16); Blood Urea Nitrogen 25 mg/dL (9-20); Calcium 9.5 mg/dL (8.4-10.2); Carbon Dioxide 27 mmol/L (22-30); Chloride 103 mmol/L (98-107); Estimated CRCL calculation 65 ml/min; Estimated Glomerular Filt Rate 54; Glucose 92 mg/dL (65-110); Phosphorus 3.2 mg/dL (2.5-4.5); Sodium 139 mmol/L (137-145)
--- NOTE | 2021-09-25 15:33 | PM.IMPN ---
Progress Note: A&P Assessment and Plan (1) Chest pain: Code(s): R07.9 - Chest pain, unspecified Status: Acute Assessment and Plan: Suspect ACS Trop 0.025-->0.038 Cardiology consulted, recommendations appreciated Plan for CC Friday Eliquis on hold (2) Atrial fibrillation with slow ventricular response: Code(s): I48.91 - Unspecified atrial fibrillation Status: Acute Assessment and Plan: Patient is anticoagulated, on hold for cc Pacemaker in place Continue to monitor (3) Presence of permanent cardiac pacemaker: Code(s): Z95.0 - Presence of cardiac pacemaker Status: Acute Assessment and Plan: Continue to monitor (4) Obstructive sleep apnea: Code(s): G47.33 - Obstructive sleep apnea (adult) (pediatric) Status: Acute Assessment and Plan: Patient uses CPAP at nighttime and brought his own (5) Chronic respiratory failure: Code(s): J96.10 - Chronic respiratory failure, unspecified whether with hypoxia or hypercapnia Status: Acute Assessment and Plan: On supplemental oxygen Continue home meds Continue to monitor (6) Supplemental oxygen dependent: Code(s): Z99.81 - Dependence on supplemental oxygen Status: Acute Assessment and Plan: Continue supplemental oxygen At baseline currently (7) COPD with emphysema: Code(s): J43.9 - Emphysema, unspecified Status: Acute Assessment and Plan: No acute exacerbation Continue home meds (8) Chronic kidney disease (CKD) stage G3b/A1, moderately decreased glomerular filtration rate (GFR) between 30-44 mL/min/1.73 square meter and albuminuria creatinine ratio less than 30 mg/g: Code(s): N18.3 - Chronic kidney disease, stage 3 (moderate) Status: Acute Assessment and Plan: Creatinine at patient's baseline Continue to monitor (9) Idiopathic chronic gout, unspecified ankle and foot, without tophus (tophi): Code(s): M1A.0790 - Idiopathic chronic gout, unspecified ankle and foot, without tophus (tophi) Status: Acute Assessment and Plan: Continue allopurinol Continue to monitor (10) BPH without obstruction/lower urinary tract symptoms: Code(s): N40.0 - Benign prostatic hyperplasia without lower urinary tract symptoms Status: Acute Assessment and Plan: Appears the patient is not on finasteride or tamsulosin (11) Gastro-esophageal reflux disease without esophagitis: Code(s): K21.9 - Gastro-esophageal reflux disease without esophagitis Status: Acute Assessment and Plan: PPI as needed Subjective Date/time seen: 09/25/21 15:33 Interval history: 09/24 Pt seen this a.m.; labs, vs, diagnostic test, consult note reviewed; no acute events overnight; pt denies any increased SOB, or CP 09/25 Pt seen and evaluated; at the bedside; no acute events overnight; denies any CP or SB Review of Systems Review of Systems: All systems reviewed & are unremarkable except as noted in HPI and below Exam Const: General: no acute distress, alert and awake Orientation/consciousness: patient oriented x3 HENMT: Head: normocephalic and atraumatic Ears: hearing grossly normal bilaterally Face and sinus: face symmetric Mouth: Yes Normal oral and palatal mucosa present Eyes: Pupils: Equal, round and reactive pupils present EOM: EOMs intact bilaterally Neck: Neck: full ROM, trachea midline and no JVD Thyroid: thyroid normal Chest: Chest palpation & inspection: normal inspection of the chest Resp: Effort & Inspection: normal respiratory effort Auscultation: clear to auscultation bilaterally Cardio: Jugular venous distension: no JVD Rate: regular rate Rhythm: regular rhythm Heart sounds: S1 normal heart sound present and S2 normal heart sound present GI: Inspection: normal to inspection Auscultation: normal bowel sounds : General: Yes no CVA tenderness Back/Spine/Pelvis: Back: no
--- NOTE | 2021-09-25 15:46 | PM.PNCARD ---
Progress Note: A&P Assessment and Plan (1) Elevated troponin: Code(s): R77.8 - Other specified abnormalities of plasma proteins Status: Acute Assessment and Plan: Troponins have trended positive. Likely consistent with a non ST elevation myocardial infarction. Chest pain which did radiate to the left shoulder area is concerning any does have several risk factors for coronary disease. Therefore after discussing the risks benefits alternatives of cardiac catheterization versus possible stress testing to evaluate for ischemic burden, patient is agreeable to pursue coronary angiogram. Risks discussed included renal dysfunction, stroke, , myocardial infarction, bleeding, pain, infection. He verbalizes understanding and is agreeable. His Eliquis is on hold but due to the fact it was given less than 48 hours ago, his cardiac catheterization will be delayed until tomorrow. He will be kept NPO. Aspirin 81 mg p.o. daily to be started. Continue statin, lisinopril, amlodipine. (2) Presence of permanent cardiac pacemaker: Code(s): Z95.0 - Presence of cardiac pacemaker Status: Acute Assessment and Plan: Ppm implanted in May 2021. (3) Atrial fibrillation: Code(s): I48.91 - Unspecified atrial fibrillation Status: Acute Assessment and Plan: On anticoagulation. (4) Chest pain: Code(s): R07.9 - Chest pain, unspecified Status: Acute Assessment and Plan: Concerning for ACS (5) Chronic kidney disease (CKD) stage G3b/A1, moderately decreased glomerular filtration rate (GFR) between 30-44 mL/min/1.73 square meter and albuminuria creatinine ratio less than 30 mg/g: Code(s): N18.3 - Chronic kidney disease, stage 3 (moderate) Status: Acute (6) Chronic respiratory failure: Code(s): J96.10 - Chronic respiratory failure, unspecified whether with hypoxia or hypercapnia Status: Acute Assessment and Plan: On intermittent supplemental oxygen especially with activity (7) Essential (primary) hypertension: Code(s): I10 - Essential (primary) hypertension Status: Acute Assessment and Plan: Continue current meds. Blood pressure is reasonably controlled today Subjective Date/time seen: 09/25/21 15:46 Interval history: 76-year-old admitted for chest pain. Date of service 09/25/2021: No chest pain, shortness of breath. Feels okay. Swelling continues. Review of Systems Review of Systems: All systems reviewed & are unremarkable except as noted in HPI and below Constitutional: Constitutional: Denies fatigue, Denies headache(s) and Denies weakness Eyes: Eyes: Denies blurry vision ENT: Reports Normal hearing present, Denies headache(s) and Denies neck pain Cardiovascular: Cardiovascular: Reports chest pain, Reports leg edema, Reports dyspnea and Reports dyspnea on exertion Respiratory: Respiratory: Reports dyspnea and Reports dyspnea on exertion Gastrointestinal: Gastrointestinal: Denies abdominal pain Genitourinary: Genitourinary: Denies dysuria Musculoskeletal: Musculoskeletal: Denies back pain, Denies neck pain and Denies numbness Integumentary/Breasts: Skin/Breast: Denies dry skin and Denies unusual bruising Neurologic: Reports Normal hearing present, Denies headache(s), Denies numbness and Denies weakness Psychiatric: Psychiatric: Denies anxiety Endocrine: Endocrine: Denies fatigue Hematologic/Lymphatic: Hematologic/Lymphatic: Denies easy bleeding Allergic/Immunologic: Allergic/Immunologic: Denies GI upset with certain foods Exam Narrative: Patient is awake alert oriented. Appears to be in no acute distress Const: General: comfortable and no acute distress HENMT: General nose exam: Normal nares present Eyes: Sclera: sclerae normal Neck: Neck: supple and no JVD Chest: Other: No reproducible chest wall pain to palpation Resp: Auscultation: diminished lung sounds Cardio: Rate: regular rate R
[2021-09-25] MEDS: FUROSEMIDE 40 MG TABLET PO (16:47)
[2021-09-25] MEDS: AMITRIPTYLINE HCL 10 MG TABLET PO (20:20)
[2021-09-26] VITALS (27 sets, daily range): BP systolic 118–157; BP diastolic 81–97; PULSE 62–81; RESP 12–22; TEMP 35.7–37; O2SAT 93–100
[2021-09-26 05:26] LABS: Albumin Level 3.3 g/dL (3.5-5.1); Anion Gap 6 mmol/L (8-16); Blood Urea Nitrogen 26 mg/dL (9-20); Calcium 8.9 mg/dL (8.4-10.2); Carbon Dioxide 28 mmol/L (22-30); Chloride 106 mmol/L (98-107); Estimated CRCL calculation 60 ml/min; Estimated Glomerular Filt Rate 50; Glucose 100 mg/dL (65-110); Phosphorus 3.4 mg/dL (2.5-4.5); Potassium 4.1 mmol/L (3.4-5.0); Sodium 140 mmol/L (137-145)
[2021-09-26] MEDS: PANTOPRAZOLE 40 MG TABLET PO (08:13)
[2021-09-26] MEDS: ROSUVASTATIN 10 MG TABLET 40 MG PO (08:13)
[2021-09-26] MEDS: CHOLECALCIFEROL 400 UNITS TABLET (VIT D) PO (08:14)
[2021-09-26] MEDS: lisinopriL 20 MG TABLET 40 MG PO (08:14)
[2021-09-26] MEDS: FLUTICASONE PROPIONATE 0.05% NA SPR 16 GM BTL (*BKC) 1 SPRAY NASAL (08:14)
[2021-09-26] MEDS: CYANOCOBALAMIN 1,000 MCG TABLET 1000 MCG PO (08:14)
[2021-09-26] MEDS: MAGNESIUM OXIDE 400 MG TABLET PO ×2 (08:14→18:04)
[2021-09-26] MEDS: ASPIRIN 81 MG ENTERIC TABLET PO (08:15)
[2021-09-26] MEDS: CALCIUM CARBONATE (OSCAL) 500 MG TABLET 1000 MG PO ×3 (08:15→18:03)
[2021-09-26] MEDS: amLODIPine BESYLATE 5 MG TABLET PO (08:15)
[2021-09-26] MEDS: POTASSIUM CHLORIDE 20 MEQ TABLET.ER PO (08:16)
[2021-09-26] MEDS: allopurinoL 100 MG TABLET PO (08:16)
--- NOTE | 2021-09-26 08:46 | WPDMODSED ---
Moderate Sedation Note-Pt Data Patient Data Diagnosis: chest pain felt to be atypical of angina troponin out of normal range Present Complaint: chest discomfort Procedure to be performed/Plan: left heart catheterization Allergies Allergy/AdvReac Type Severity Reaction Status Date / Time levofloxacin Allergy Unknown unk Verified 08/09/21 11:54 Penicillins Allergy Unknown unk Verified 08/09/21 11:54 Home Medications Medication Instructions Recorded Confirmed Type cholecalciferol (vitamin D3) 10 400 unit PO DAILY 09/21/19 09/23/21 History mcg (400 unit) capsule cyanocobalamin (vitamin B-12) 1,000 mcg PO DAILY 09/21/19 09/23/21 History 1,000 mcg tablet magnesium oxide 500 mg tablet 500 mg PO BID 09/21/19 09/23/21 History omeprazole 20 mg capsule,delayed 20 mg PO DAILY 09/21/19 09/23/21 History release potassium chloride 20 mEq 20 meq PO QMWFSA 09/21/19 09/23/21 History tablet,extended release furosemide 40 mg tablet 40 mg PO BID tablet 09/30/19 09/23/21 History calcium carbonate 500 mg calcium 1,000 mg PO TID 12/14/19 09/23/21 History (1,250 mg) capsule rosuvastatin 40 mg tablet 40 mg PO DAILY 03/23/20 09/23/21 History allopurinol 100 mg tablet 100 mg PO DAILY #90 tablet 09/19/20 09/23/21 Rx ipratropium bromide 0.02 % 2.5 ml INHALATION Q6H PRN #300 ml 09/19/20 09/23/21 Rx solution for inhalation amlodipine 5 mg tablet 5 mg PO DAILY #90 tablet 01/12/21 09/23/21 Rx apixaban 5 mg tablet 5 mg PO BID #60 tablet 02/27/21 09/23/21 Rx arformoterol [Brovana] 2 ml INHALATION BID 04/01/21 09/23/21 History lisinopril 20 mg tablet 40 mg PO DAILY #180 tablet 07/03/21 09/23/21 Rx fluticasone propionate 50 1 spray INTRANASAL DAILY 08/09/21 09/23/21 History mcg/actuation nasal spray,suspension budesonide 0.5 mg INHALATION BID 09/23/21 09/23/21 History amitriptyline 10 mg tablet 10 mg PO .Q.h.s. #90 tablet 09/25/21 Rx Current Medications: Active Medications Allopurinol (Allopurinol 100 Mg Tablet) 100 mg PO DAILY@0800 [facility] Last Admin: 09/26/21 08:16 Dose: 100 mg Documented by: Amitriptyline HCl (Amitriptyline Hcl 10 Mg Tablet) 10 mg PO HS [facility] Last Admin: 09/25/21 20:20 Dose: 10 mg Documented by: Amlodipine Besylate (Amlodipine Besylate 5 Mg Tablet) 5 mg PO DAILY [facility] Last Admin: 09/26/21 08:15 Dose: 5 mg Documented by: Apixaban (Apixaban 5 Mg Tablet) 5 mg PO BID [facility] Last Admin: 09/24/21 08:27 Dose: 5 mg Documented by: Aspirin (Aspirin 81 Mg Enteric Tablet) 81 mg PO QAM [facility] Last Admin: 09/26/21 08:15 Dose: 81 mg Documented by: Budesonide (Budesonide Respule Neb 0.5 Mg/2 Ml Amp) 0.5 mg INHALATION Q12HRT [facility] Last Admin: 09/25/21 21:24 Dose: 0.5 mg Documented by: Calcium Carbonate (Calcium Carbonate (Oscal) 500 Mg Tablet) 1,000 mg PO TID [facility] Last Admin: 09/26/21 08:15 Dose: 1,000 mg Documented by: Cyanocobalamin (Cyanocobalamin 1,000 Mcg Tablet) 1,000 mcg PO DAILY [facility] Last Admin: 09/26/21 08:14 Dose: 1,000 mcg Documented by: Fluticasone Propionate (Fluticasone Propionate 0.05% Na Spr 16 Gm Btl (*Bkc)) 1 spray NASAL DAILY [facility] Last Admin: 09/26/21 08:14 Dose: 1 spray Documented by: Furosemide (Furosemide 40 Mg Tablet) 40 mg PO BID [facility] Last Admin: 09/25/21 16:47 Dose: 40 mg Documented by: Home Med (Brovana 15mcg/2ml Home Med) 1 each INHALATION Q12HRT [facility] Stop: 10/24/21 12:59 Last Admin: 09/25/21 21:24 Dose: 1 each Documented by: Ipratropium [place] (Ipratropium Br 0.02% Inh Soln 0.5 Mg/2.5 Ml Vial) 0.5 mg INHALATION Q6H PRN PRN Reason: shortness of breath or wheezing Lisinopril (Lisinopril 20 Mg Tablet) 40 mg PO DAILY [facility] Last Admin: 09/26/21 08:14 Dose: 40 mg Documented by: Magnesium Oxide (Magnesium Oxide 400 Mg Tablet) 400 mg PO BID [facility] Stop: 10/24/21 08:59 Last Admin: 09/26/21 08:14 Dose: 400 mg Documented by: Pantoprazole Sodium (Pantoprazole 40 Mg Tablet) 40 mg PO QAM [facility] Last Admin: 09/26/21 08:13 Dose: 40 mg Documented by: Potassium Chlor
[2021-09-26] MEDS: BUDESONIDE RESPULE NEB 0.5 MG/2 ML AMP INHALATION ×2 (10:16→21:35)
--- NOTE | 2021-09-26 10:17 | PCRCNOTE ---
Window of time for administration has passed. See next scheduled administration.
--- NOTE | 2021-09-26 10:20 | WPDCARDPROC ---
Cardiac Cath Procedure Note Date of procedure:: 09/26/21 Performing physician:: Cayetano Joseph MD Indication:: chest pain, elevated troponin chronic atrial fibrillation recent pacemaker placed Brief clinical history:: this is a 76-year-old man not previously known to have coronary disease. He is diagnosed with chronic atrial fibrillation with slow ventricular response and has a chronically implanted pacemaker. He entered the hospital with symptoms of intermittent chest pain concerning for ischemia. There has been a minimal rise in his troponin level. In this setting an angiogram has been recommended. Procedure Procedure performed:: Left ventriculogram coronary angiography Sedation/Medication given:: fentanyl 50 mg Versed 2 mg case start time 9:02 a.m. case end time 10:08 a.m. sedation provided by Daisy Sales RN, trained observer Access site:: right femoral artery Estimated blood loss:: 100 cc Procedure note:: patient was brought to the cardiac catheterization lab in the postabsorptive state where the femoral triangle was prepped and draped in the usual fashion. The patient is morbidly obese and the pannus was taped in a cephalad fashion. Using the modified Seldinger technique the femoral artery was punctured and a 5 Greek vascular sheath was placed. Several punctures had to be made before the femoral artery was successfully entered. Manual pressure was held between the 1st 2 punctures to secure hemostasis. Following this a 5 Greek angled pigtail was used for measuring left-sided hemodynamics injecting and LV g in the MORGAN projection. Following this I attempted to engage the left coronary artery with multiple catheters unsuccessfully. I engaged the right coronary artery and injected using a 5 Greek JR4 catheter. I then upsized to a 6 Greek sheath and ultimately successfully engage the left coronary artery successfully using a 6 Greek JL 6 catheter. Following this the cineangiograms were reviewed and the case was terminated. The patient was taken to the holding area for manual sheath removal. The patient was asymptomatic despite the long case and had no procedural complications and no sign of a groin hematoma upon leaving the research lab assistant. Findings:: Hemodynamics: Central aortic pressure was 126/78 left ventricle 126/0 end-diastolic pressure 10 there is no systolic gradient on pullback across the aortic valve. Left ventricle: The LV is moderately enlarged there is mild global hypocontractility the ejection fraction I would nurse clinician to be 40-45%. The ascending thoracic aorta seen on the LV ejection is markedly dilated. The left main coronary artery is short but patent and free of stenosis. The left anterior descending is a moderate caliber artery extending down to around the apex. The LAD has complex high-grade proximal disease of 90% prior to the diagonal branch and 80% distal to this. There is tortuosity between these 2 lesions. The distal portion of the LAD has diffuse 80-90% stenosis down near the apex. The major diagonal branch coming off proximally is small and diffusely diseased with high-grade 80-90% diffuse disease. Circumflex is a large caliber vessel and is dominant to the posterior circulation. It gives rise to a very large 1st obtuse marginal branch which has complex proximal 90% stenosis. The distal trunk of the circumflex has mild luminal irregularities but no significant lesions the left posterolateral vessels in the left PDA are small and diffusely diseased. Conclusion:: 1. 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 . 2. Dominant circumflex with high-grade 90-95% stenosis in the large 1st OM branch and diffuse disease in the posterolateral and left PDA. 3. Mild LV enlargement with mild global systolic dysfunction 4. markedly dilated asce
[2021-09-26] MEDS: SODIUM CHLORIDE 0.9% IV 1,000 ML 125 ML IV CONT (10:56)
[2021-09-26] MEDS: FUROSEMIDE 40 MG TABLET PO ×2 (13:59→22:18)
[2021-09-26 15:26] LABS: Anion Gap 5 mmol/L (8-16); Blood Urea Nitrogen 21 mg/dL (9-20); Carbon Dioxide 26 mmol/L (22-30); Chloride 106 mmol/L (98-107); Estimated CRCL calculation 65 ml/min; Estimated Glomerular Filt Rate 54; Glucose 93 mg/dL (65-110); Potassium 3.9 mmol/L (3.4-5.0); Sodium 137 mmol/L (137-145)
--- NOTE | 2021-09-26 16:48 | PC.NURSE ---
On 09/26/21, the student, [employer], provided care and completed [facility] documentation on this patient. I have reviewed the student's documentation and agree with the findings.
[2021-09-26 16:57] LABS: Glucose Point of Care 102 mg/dl (65-105)
--- NOTE | 2021-09-26 17:11 | PM.IMPN ---
Progress Note: A&P Assessment and Plan (1) Chest pain: Code(s): R07.9 - Chest pain, unspecified Status: Acute Assessment and Plan: Suspect ACS Trop 0.025-->0.038 Cardiology consulted, recommendations appreciated status post cardiac catheterization 09/26/2021 1. 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 . 2. Dominant circumflex with high-grade 90-95% stenosis in the large 1st OM branch and diffuse disease in the posterolateral and left PDA. 3. Mild LV enlargement with mild global systolic dysfunction 4. markedly dilated ascending thoracic aorta which made catheter engagement the left coronary artery very difficult. Thoracic aortic pathology was not apparently known prior to this case Eliquis on hold Planned surgical evaluation (2) Atrial fibrillation with slow ventricular response: Code(s): I48.91 - Unspecified atrial fibrillation Status: Acute Assessment and Plan: Patient is anticoagulated, Currently Eliquis on hold Pacemaker in place Continue to monitor (3) Presence of permanent cardiac pacemaker: Code(s): Z95.0 - Presence of cardiac pacemaker Status: Acute Assessment and Plan: Continue to monitor (4) Obstructive sleep apnea: Code(s): G47.33 - Obstructive sleep apnea (adult) (pediatric) Status: Acute Assessment and Plan: Patient uses CPAP at nighttime and brought his own (5) Chronic respiratory failure: Code(s): J96.10 - Chronic respiratory failure, unspecified whether with hypoxia or hypercapnia Status: Acute Assessment and Plan: On supplemental oxygen Continue home meds Continue to monitor (6) Supplemental oxygen dependent: Code(s): Z99.81 - Dependence on supplemental oxygen Status: Acute Assessment and Plan: Continue supplemental oxygen At baseline currently (7) COPD with emphysema: Code(s): J43.9 - Emphysema, unspecified Status: Acute Assessment and Plan: No acute exacerbation Continue home meds (8) Chronic kidney disease (CKD) stage G3b/A1, moderately decreased glomerular filtration rate (GFR) between 30-44 mL/min/1.73 square meter and albuminuria creatinine ratio less than 30 mg/g: Code(s): N18.3 - Chronic kidney disease, stage 3 (moderate) Status: Acute Assessment and Plan: Creatinine at patient's baseline Continue to monitor (9) Idiopathic chronic gout, unspecified ankle and foot, without tophus (tophi): Code(s): M1A.0790 - Idiopathic chronic gout, unspecified ankle and foot, without tophus (tophi) Status: Acute Assessment and Plan: Continue allopurinol Continue to monitor (10) BPH without obstruction/lower urinary tract symptoms: Code(s): N40.0 - Benign prostatic hyperplasia without lower urinary tract symptoms Status: Acute Assessment and Plan: Appears the patient is not on finasteride or tamsulosin (11) Gastro-esophageal reflux disease without esophagitis: Code(s): K21.9 - Gastro-esophageal reflux disease without esophagitis Status: Acute Assessment and Plan: PPI as needed (12) Thoracic ascending aortic aneurysm: Code(s): I71.2 - Thoracic aortic aneurysm, without rupture Status: Acute Assessment and Plan: noted in the catheterization today Plan CT a for further evaluation to determine further course of action Subjective Date/time seen: 09/26/21 17:11 Interval history: 09/24 Pt seen this a.m.; labs, vs, diagnostic test, consult note reviewed; no acute events overnight; pt denies any increased SOB, or CP 09/25 Pt seen and evaluated; at the bedside; no acute events overnight; denies any CP or SB 09/26 Pat patient seen after the cardiac catheterization at bedside denies any shortness of breath or
[2021-09-26] MEDS: AMITRIPTYLINE HCL 10 MG TABLET PO (21:07)
--- NOTE | 2021-09-26 21:36 | PCRCNOTE ---
Pt uses home medication that pharmacy does not carry. We are currently out of home med. Pts is going to bring it in the morning. Pt did not receive it tonight at 8pm.
[2021-09-27] VITALS (23 sets, daily range): BP systolic 115–144; BP diastolic 82–94; PULSE 61–99; RESP 16–22; TEMP 36.1–37.8; O2SAT 94–100
[2021-09-27 04:55] LABS: Basophils Absolute Auto 0.1 K/mm3 (0.0-0.1); Basophils Percent Auto 0.7 % (0.2-1.2); Eosinophils Absolute Auto 0.2 K/mm3 (0-0.3); Eosinophils Percent Auto 3.3 % (0-4.4); Hematocrit 41.5 % (42.0-52.0); Hemoglobin 13.7 g/dL (14.0-18.0); Immature Granulocyte Absolute 0.02 K/mm3 (0.00-0.031); Immature Granulocyte Percent A 0.3 % (0-0.5); Lymphocytes Absolute Auto 1.05 K/mm3 (0.9-3.2); Lymphocytes Percent Auto 14.9 % (18.3-44.2); Mean Corpuscular Hemoglobin 32.5 pg (26-34); Mean Corpuscular Volume 98.3 fl (80-100); Mean Platelet Volume 10.2 fl (7.4-10.4); Monocytes Absolute Auto 0.8 K/mm3 (0.1-0.6); Monocytes Percent Auto 11.3 % (2.6-8.5); Neutrophils Absolute Auto 4.9 K/mm3 (1.3-6.7); Neutrophils Percent Auto 69.5 % (45.5-73.1); Platelet Count Result 203 k/mm3 (150-375); Red Blood Count 4.22 M/mm3 (4.6-6.20); Red Cell Distribution Width 14.4 % (11.5-14.5); White Blood Count 7.1 K/mm3 (4.5-10.0)
[2021-09-27 07:01] LABS: Anion Gap 7 mmol/L (8-16); Blood Urea Nitrogen 26 mg/dL (9-20); Calcium 8.7 mg/dL (8.4-10.2); Carbon Dioxide 26 mmol/L (22-30); Chloride 103 mmol/L (98-107); Estimated CRCL calculation 50 ml/min; Estimated Glomerular Filt Rate 40; Glucose 102 mg/dL (65-110); Potassium 4.1 mmol/L (3.4-5.0); Sodium 136 mmol/L (137-145)
[2021-09-27] MEDS: BUDESONIDE RESPULE NEB 0.5 MG/2 ML AMP INHALATION ×2 (08:45→21:00)
--- NOTE | 2021-09-27 09:44 | PM.PNCARD ---
Progress Note: A&P Assessment and Plan (1) Elevated troponin: Code(s): R77.8 - Other specified abnormalities of plasma proteins Status: Acute Assessment and Plan: Troponins have trended positive. Likely consistent with a non ST elevation myocardial infarction. Continue aspirin, statin, lisinopril, amlodipine. (2) Presence of permanent cardiac pacemaker: Code(s): Z95.0 - Presence of cardiac pacemaker Status: Acute Assessment and Plan: Ppm implanted in May 2021. (3) Atrial fibrillation: Code(s): I48.91 - Unspecified atrial fibrillation Status: Acute Assessment and Plan: Will likely resume anticoagulation depending on the results of the CT scan today (4) Chest pain: Code(s): R07.9 - Chest pain, unspecified Status: Acute Assessment and Plan: Concerning for ACS (5) Chronic kidney disease (CKD) stage G3b/A1, moderately decreased glomerular filtration rate (GFR) between 30-44 mL/min/1.73 square meter and albuminuria creatinine ratio less than 30 mg/g: Code(s): N18.3 - Chronic kidney disease, stage 3 (moderate) Status: Acute (6) Chronic respiratory failure: Code(s): J96.10 - Chronic respiratory failure, unspecified whether with hypoxia or hypercapnia Status: Acute Assessment and Plan: On intermittent supplemental oxygen especially with activity (7) Essential (primary) hypertension: Code(s): I10 - Essential (primary) hypertension Status: Acute Assessment and Plan: Continue current meds. Blood pressure is reasonably controlled today (8) Thoracic ascending aortic aneurysm: Code(s): I71.2 - Thoracic aortic aneurysm, without rupture Status: Acute Assessment and Plan: Will order a noncontrast CT of the chest today to evaluate for ascending aortic size. Depending on those results, decision will be made regarding CTS evaluation versus high-risk PCI. Also decision regarding inpatient transfer versus discharge and workup as an outpatient. (9) Acute on chronic renal failure: Code(s): N17.9 - Acute kidney failure, unspecified; N18.9 - Chronic kidney disease, unspecified Status: Acute Assessment and Plan: No contrast today will be given. Will continue to monitor his renal function (10) CAD (coronary artery disease): Code(s): I25.10 - Atherosclerotic heart disease of [place] coronary artery without angina pectoris Status: Acute Assessment and Plan: Significant coronary disease noted by angiogram yesterday. High-grade proximal LAD stenosis. Ramus stenosis. Non dominant right coronary artery also has disease. Will need intervention. Decision will be made regarding PCI versus CABG. Subjective Date/time seen: 09/27/21 09:44 Interval history: 76-year-old admitted for chest pain. Date of service 09/27/2021: No chest pain, shortness of breath. Feels okay. Does have some lower extremity swelling. Right groin is stable. No pain Review of Systems Review of Systems: All systems reviewed & are unremarkable except as noted in HPI and below Constitutional: Constitutional: Denies fatigue, Denies headache(s) and Denies weakness Eyes: Eyes: Denies blurry vision ENT: Reports Normal hearing present, Denies headache(s) and Denies neck pain Cardiovascular: Cardiovascular: Reports chest pain, Reports leg edema, Reports dyspnea and Reports dyspnea on exertion Respiratory: Respiratory: Reports dyspnea and Reports dyspnea on exertion Gastrointestinal: Gastrointestinal: Denies abdominal pain Genitourinary: Genitourinary: Denies dysuria Musculoskeletal: Musculoskeletal: Denies back pain, Denies neck pain and Denies numbness Integumentary/Breasts: Skin/Breast: Denies dry skin and Denies unusual bruising Neurologic: Reports Normal hearing present, Denies headache(s), Denies numbness and Denies weakness Psychiatric: Psychiatric: Denies anxiety Endocrine: Endocr
[2021-09-27] MEDS: amLODIPine BESYLATE 5 MG TABLET PO (09:55)
[2021-09-27] MEDS: allopurinoL 100 MG TABLET PO (09:55)
[2021-09-27] MEDS: CALCIUM CARBONATE (OSCAL) 500 MG TABLET 1000 MG PO ×3 (09:56→16:59)
[2021-09-27] MEDS: ASPIRIN 81 MG ENTERIC TABLET PO (09:56)
[2021-09-27] MEDS: CHOLECALCIFEROL 400 UNITS TABLET (VIT D) PO (09:56)
[2021-09-27] MEDS: CYANOCOBALAMIN 1,000 MCG TABLET 1000 MCG PO (09:56)
[2021-09-27] MEDS: FUROSEMIDE 40 MG TABLET PO ×2 (09:57→16:59)
[2021-09-27] MEDS: lisinopriL 20 MG TABLET 40 MG PO (09:57)
[2021-09-27] MEDS: FLUTICASONE PROPIONATE 0.05% NA SPR 16 GM BTL (*BKC) 1 SPRAY NASAL (09:57)
[2021-09-27] MEDS: MAGNESIUM OXIDE 400 MG TABLET PO ×2 (09:57→16:59)
[2021-09-27] MEDS: PANTOPRAZOLE 40 MG TABLET PO (09:58)
[2021-09-27] MEDS: ROSUVASTATIN 10 MG TABLET 40 MG PO (09:58)
--- NOTE | 2021-09-27 14:39 | PC.NURSE ---
On 09/27/21, the student, [Héctor Stein], provided care and completed [facility] documentation on this patient. I have reviewed the student's documentation and agree with the findings.
--- NOTE | 2021-09-27 16:06 | PM.CNPUL ---
Assessment and Plan Assessment and plan (1) Lung nodule, multiple: Code(s): R91.8 - Other nonspecific abnormal finding of lung field Status: Acute Assessment and Plan: Patient with multiple bilateral partly solid nodules new since 08/28/2021 with minimal increase in his phlegm production since then and no additional respiratory symptoms. This is most consistent with an infectious etiology and I will treat with azithromycin for 5 days (500 today followed by 250 X 4 days) as the patient has allergies to penicillin and Levaquin. He is followed in our clinic and I will order a repeat CT scan in 6 weeks to reassess these partly solid nodules. Discussed with Dr. Elliott. Will sign off for now. Call with any questions. History of Present Illness History of Present Illness Consult date: 09/27/21 Reason for consult: pneumonia Chief complaint: Chest Pain Narrative: This is a new pulmonary consult for semi solid nodules in the lungs. 76-year-old man with a history of atrial fibrillation on eliquis, obstructive and restrictive lung disease, hypertension, GERD, dyslipidemia, morbid obesity with obstructive sleep apnea on BiPAP, CKD who presented to the emergency room on 09/23 with chest pain. Patient underwent a cardiac catheterization on 09/26 and was found to have 90% lad, 90% OM 1 with a dilated ascending thoracic aorta. CT scan of the chest was performed on 09/27 to assess the dilated thoracic aorta and this demonstrated multiple bilateral semi solid nodules in both lungs which was new compared to a CT scan on 08/28/2021. He had some severe panlobular emphysema which is unchanged from 08/28/2021. Speaking to the patient today he states that his respiratory status has been stable since 08/28/2021. He has had no fever, chills, rigors, hemoptysis. He does state that he had a minimal increase in phlegm production few weeks ago and produced phlegm maybe 2 times a week compared to none in the past. He has not lost his taste or smell and has been COVID vaccinated with a booster. He has lost 40 lb over the last 2 years with weight management including dieting. He denies any wheezing. He continues to wear his BiPAP at night without any issues. He wears oxygen 1.5 L at night but none during the day. DATA: EXAMINATION:CT diagnostic chest wo con DATE: 09/27/2021 10:24 INDICATION: Thoracic aortic aneurysm. Chest pain. TECHNIQUE: Computed tomography (CT) of the chest was performed without intravenous contrast. Automated exposure control and iterative reconstruction technique were employed. The dose-length product (DLP) was 809.41 mGy-cm. COMPARISON: Chest CT 08/28/2021, CT abdomen and pelvis 05/04/2019 FINDINGS: There is severe emphysema. There is widespread chronic peripheral septal thickening in the lungs with a lower lung predominance. There are acute scattered part-solid nodules in all lobes in a random distribution, new from 08/28/21. A calcified right lung nodule and calcified right hilar lymph nodes are consistent with old granulomatous disease. No pleural effusion. Cardiomegaly is noted. There are coronary artery calcifications. No pericardial effusion. There is a left chest pacer with lead in right ventricle. The aorta measures 4.8 cm at the sinuses of Valsalva, 4.3 cm at the sinotubular junction, 4.6 cm in the mid ascending aorta, 3.9 cm at the aortic isthmus, and 3.6 cm in the mid descending aorta. There is a diverticulum of the fundus of the stomach. There are cysts in right kidney measuring up to 2.3 cm. There are hemorrhagic cysts in right kidney measuring up to 12 mm. There is moderate thoracic spondylosis. Thoracic dextroscoliosis is noted. IMPRESSION: 1. 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 2. Acute part-solid nodules in all lobes in a random distribution, consistent with pneumonia. 3. Severe emphysema. Review of Systems Review of Sys
--- NOTE | 2021-09-27 17:01 | PM.IMPN ---
Progress Note: A&P Assessment and Plan (1) Chest pain: Code(s): R07.9 - Chest pain, unspecified Status: Acute Assessment and Plan: Suspect ACS Trop 0.025-->0.038 Cardiology consulted, recommendations appreciated status post cardiac catheterization 09/26/2021 1. 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 . 2. Dominant circumflex with high-grade 90-95% stenosis in the large 1st OM branch and diffuse disease in the posterolateral and left PDA. 3. Mild LV enlargement with mild global systolic dysfunction 4. markedly dilated ascending thoracic aorta which made catheter engagement the left coronary artery very difficult. Thoracic aortic pathology was not apparently known prior to this case Eliquis restarted Planned surgical evaluation versus PCI (2) Atrial fibrillation with slow ventricular response: Code(s): I48.91 - Unspecified atrial fibrillation Status: Acute Assessment and Plan: Patient is anticoagulated, Currently Eliquis on has been restarted Pacemaker in place Continue to monitor (3) Presence of permanent cardiac pacemaker: Code(s): Z95.0 - Presence of cardiac pacemaker Status: Acute Assessment and Plan: Continue to monitor (4) Obstructive sleep apnea: Code(s): G47.33 - Obstructive sleep apnea (adult) (pediatric) Status: Acute Assessment and Plan: Patient uses CPAP at nighttime and brought his own (5) Chronic respiratory failure: Code(s): J96.10 - Chronic respiratory failure, unspecified whether with hypoxia or hypercapnia Status: Acute Assessment and Plan: On supplemental oxygen Continue home meds Continue to monitor (6) Supplemental oxygen dependent: Code(s): Z99.81 - Dependence on supplemental oxygen Status: Acute Assessment and Plan: Continue supplemental oxygen At baseline currently (7) COPD with emphysema: Code(s): J43.9 - Emphysema, unspecified Status: Acute Assessment and Plan: No acute exacerbation Continue home meds (8) Chronic kidney disease (CKD) stage G3b/A1, moderately decreased glomerular filtration rate (GFR) between 30-44 mL/min/1.73 square meter and albuminuria creatinine ratio less than 30 mg/g: Code(s): N18.3 - Chronic kidney disease, stage 3 (moderate) Status: Acute Assessment and Plan: Creatinine at patient's baseline Continue to monitor (9) Idiopathic chronic gout, unspecified ankle and foot, without tophus (tophi): Code(s): M1A.0790 - Idiopathic chronic gout, unspecified ankle and foot, without tophus (tophi) Status: Acute Assessment and Plan: Continue allopurinol Continue to monitor (10) BPH without obstruction/lower urinary tract symptoms: Code(s): N40.0 - Benign prostatic hyperplasia without lower urinary tract symptoms Status: Acute Assessment and Plan: Appears the patient is not on finasteride or tamsulosin (11) Gastro-esophageal reflux disease without esophagitis: Code(s): K21.9 - Gastro-esophageal reflux disease without esophagitis Status: Acute Assessment and Plan: PPI as needed (12) Thoracic ascending aortic aneurysm: Code(s): I71.2 - Thoracic aortic aneurysm, without rupture Status: Acute Assessment and Plan: noted in the catheterization today CT chest with 4.8 cm X Elisa a of thoracic aorta (13) Lung nodule, multiple: Code(s): R91.8 - Other nonspecific abnormal finding of lung field Status: Acute Assessment and Plan: Pulmonary has been consulted and suggested infectious nodules started on antibiotics appreciate Pulmonary opinion Subjective Date/time seen: 09/27/21 17:01 Interval history: 09/24 Pt seen this a.m.; labs, vs, diagnostic test, consult note reviewed; no
[2021-09-27] MEDS: AZITHROMYCIN 250 MG TABLET 500 MG PO (17:57)
[2021-09-27] MEDS: AMITRIPTYLINE HCL 10 MG TABLET PO (20:22)
[2021-09-27] MEDS: APIXABAN 5 MG TABLET PO (20:22)
[2021-09-27] MEDS: IPRATROPIUM BR 0.02% INH SOLN 0.5 MG/2.5 ML VIAL INHALATION (21:00)
[2021-09-28] VITALS (15 sets, daily range): BP systolic 129–145; BP diastolic 80–94; PULSE 7–79; RESP 16–26; TEMP 36.3–36.6; O2SAT 94–98
[2021-09-28 05:20] LABS: Basophils Absolute Auto 0.1 K/mm3 (0.0-0.1); Basophils Percent Auto 0.7 % (0.2-1.2); Eosinophils Absolute Auto 0.2 K/mm3 (0-0.3); Eosinophils Percent Auto 3.2 % (0-4.4); Hematocrit 39.6 % (42.0-52.0); Hemoglobin 13.1 g/dL (14.0-18.0); Immature Granulocyte Absolute 0.02 K/mm3 (0.00-0.031); Immature Granulocyte Percent A 0.3 % (0-0.5); Lymphocytes Absolute Auto 1.25 K/mm3 (0.9-3.2); Lymphocytes Percent Auto 17.2 % (18.3-44.2); Mean Corpuscular HGB Conc 33.1 g/dl (32-36); Mean Corpuscular Hemoglobin 32.2 pg (26-34); Mean Corpuscular Volume 97.3 fl (80-100); Mean Platelet Volume 10.6 fl (7.4-10.4); Monocytes Absolute Auto 0.9 K/mm3 (0.1-0.6); Monocytes Percent Auto 12.6 % (2.6-8.5); Neutrophils Absolute Auto 4.8 K/mm3 (1.3-6.7); Platelet Count Result 219 k/mm3 (150-375); Red Blood Count 4.07 M/mm3 (4.6-6.20); Red Cell Distribution Width 14.2 % (11.5-14.5); White Blood Count 7.3 K/mm3 (4.5-10.0)
[2021-09-28 05:36] LABS: Anion Gap 8 mmol/L (8-16); Blood Urea Nitrogen 33 mg/dL (9-20); Calcium 8.9 mg/dL (8.4-10.2); Carbon Dioxide 27 mmol/L (22-30); Chloride 100 mmol/L (98-107); Estimated CRCL calculation 45 ml/min; Estimated Glomerular Filt Rate 35; Glucose 98 mg/dL (65-110); Potassium 3.8 mmol/L (3.4-5.0); Sodium 135 mmol/L (137-145)
[2021-09-28] MEDS: BUDESONIDE RESPULE NEB 0.5 MG/2 ML AMP INHALATION ×2 (08:22→20:32)
[2021-09-28] MEDS: POTASSIUM CHLORIDE 20 MEQ TABLET.ER PO (08:38)
[2021-09-28] MEDS: amLODIPine BESYLATE 5 MG TABLET PO (08:38)
[2021-09-28] MEDS: APIXABAN 5 MG TABLET PO ×2 (08:39→20:27)
[2021-09-28] MEDS: allopurinoL 100 MG TABLET PO (08:39)
[2021-09-28] MEDS: ASPIRIN 81 MG ENTERIC TABLET PO (08:40)
[2021-09-28] MEDS: AZITHROMYCIN 250 MG TABLET PO (08:41)
[2021-09-28] MEDS: CALCIUM CARBONATE (OSCAL) 500 MG TABLET 1000 MG PO ×3 (08:41→16:29)
[2021-09-28] MEDS: CYANOCOBALAMIN 1,000 MCG TABLET 1000 MCG PO (08:42)
[2021-09-28] MEDS: FLUTICASONE PROPIONATE 0.05% NA SPR 16 GM BTL (*BKC) 1 SPRAY NASAL (08:42)
[2021-09-28] MEDS: CHOLECALCIFEROL 400 UNITS TABLET (VIT D) PO (08:43)
[2021-09-28] MEDS: FUROSEMIDE 40 MG TABLET PO (08:43)
[2021-09-28] MEDS: lisinopriL 20 MG TABLET 40 MG PO (08:43)
[2021-09-28] MEDS: MAGNESIUM OXIDE 400 MG TABLET PO ×2 (08:44→16:29)
[2021-09-28] MEDS: ROSUVASTATIN 10 MG TABLET 40 MG PO (08:44)
[2021-09-28] MEDS: PANTOPRAZOLE 40 MG TABLET PO (08:45)
--- NOTE | 2021-09-28 09:40 | PC.NURSE ---
Report called to GRISELDA Adame.
--- NOTE | 2021-09-28 09:55 | PC.NURSE ---
Received from [facility] / via wheelchair.
--- NOTE | 2021-09-28 10:02 | PM.IMPN ---
Progress Note: A&P Assessment and Plan (1) Chest pain: Code(s): R07.9 - Chest pain, unspecified Status: Acute Assessment and Plan: Suspect ACS Trop 0.025-->0.038 Cardiology consulted, recommendations appreciated status post cardiac catheterization 09/26/2021 1. 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 . 2. Dominant circumflex with high-grade 90-95% stenosis in the large 1st OM branch and diffuse disease in the posterolateral and left PDA. 3. Mild LV enlargement with mild global systolic dysfunction 4. markedly dilated ascending thoracic aorta which made catheter engagement the left coronary artery very difficult. Thoracic aortic pathology was not apparently known prior to this case Mika restarted Planned surgical evaluation versus PCI Plan for it to be done as an outpatient basis once pneumonia clears up (2) Atrial fibrillation with slow ventricular response: Code(s): I48.91 - Unspecified atrial fibrillation Status: Acute Assessment and Plan: Patient is anticoagulated, Currently Eliquis on has been restarted Pacemaker in place Continue to monitor (3) Presence of permanent cardiac pacemaker: Code(s): Z95.0 - Presence of cardiac pacemaker Status: Acute Assessment and Plan: Continue to monitor (4) Obstructive sleep apnea: Code(s): G47.33 - Obstructive sleep apnea (adult) (pediatric) Status: Acute Assessment and Plan: Patient uses CPAP at nighttime and brought his own (5) Chronic respiratory failure: Code(s): J96.10 - Chronic respiratory failure, unspecified whether with hypoxia or hypercapnia Status: Acute Assessment and Plan: On supplemental oxygen Continue home meds Continue to monitor (6) Supplemental oxygen dependent: Code(s): Z99.81 - Dependence on supplemental oxygen Status: Acute Assessment and Plan: Continue supplemental oxygen At baseline currently (7) COPD with emphysema: Code(s): J43.9 - Emphysema, unspecified Status: Acute Assessment and Plan: No acute exacerbation Continue home meds (8) Chronic kidney disease (CKD) stage G3b/A1, moderately decreased glomerular filtration rate (GFR) between 30-44 mL/min/1.73 square meter and albuminuria creatinine ratio less than 30 mg/g: Code(s): N18.3 - Chronic kidney disease, stage 3 (moderate) Status: Acute Assessment and Plan: Creatinine continues to worsen up to 1.9 today suggesting NITZA on CKD stage 3 Will hold his lisinopril and diuretic today and recheck his levels in the morning If stable will discharge (9) Idiopathic chronic gout, unspecified ankle and foot, without tophus (tophi): Code(s): M1A.0790 - Idiopathic chronic gout, unspecified ankle and foot, without tophus (tophi) Status: Acute Assessment and Plan: Continue allopurinol Continue to monitor (10) BPH without obstruction/lower urinary tract symptoms: Code(s): N40.0 - Benign prostatic hyperplasia without lower urinary tract symptoms Status: Acute Assessment and Plan: Appears the patient is not on finasteride or tamsulosin (11) Gastro-esophageal reflux disease without esophagitis: Code(s): K21.9 - Gastro-esophageal reflux disease without esophagitis Status: Acute Assessment and Plan: PPI as needed (12) Thoracic ascending aortic aneurysm: Code(s): I71.2 - Thoracic aortic aneurysm, without rupture Status: Acute Assessment and Plan: noted in the catheterization today CT chest with 4.8 cm aneurysm off thoracic aorta (13) Lung nodule, multiple: Code(s): R91.8 - Other nonspecific abnormal finding of lung field Status: Acute Assessment and Plan: Pulmonary has been consulted and suggested infectious no
--- NOTE | 2021-09-28 11:18 | PM.PNCARD ---
Progress Note: A&P Assessment and Plan (1) Elevated troponin: Code(s): R77.8 - Other specified abnormalities of plasma proteins Status: Acute Assessment and Plan: Troponins have trended positive. Likely consistent with a non ST elevation myocardial infarction. Continue aspirin, statin, lisinopril, amlodipine. (2) Presence of permanent cardiac pacemaker: Code(s): Z95.0 - Presence of cardiac pacemaker Status: Acute Assessment and Plan: Ppm implanted in May 2021. (3) Atrial fibrillation: Code(s): I48.91 - Unspecified atrial fibrillation Status: Acute Assessment and Plan: Resumed anticoagulation with apixaban 5 mg p.o. b.i.d. (4) Chest pain: Code(s): R07.9 - Chest pain, unspecified Status: Acute Assessment and Plan: Resolved (5) Chronic kidney disease (CKD) stage G3b/A1, moderately decreased glomerular filtration rate (GFR) between 30-44 mL/min/1.73 square meter and albuminuria creatinine ratio less than 30 mg/g: Code(s): N18.3 - Chronic kidney disease, stage 3 (moderate) Status: Acute Assessment and Plan: Mild acute on chronic (6) Chronic respiratory failure: Code(s): J96.10 - Chronic respiratory failure, unspecified whether with hypoxia or hypercapnia Status: Acute Assessment and Plan: On intermittent supplemental oxygen especially with activity (7) Essential (primary) hypertension: Code(s): I10 - Essential (primary) hypertension Status: Acute Assessment and Plan: Continue current meds. Blood pressure is reasonably controlled today (8) Thoracic ascending aortic aneurysm: Code(s): I71.2 - Thoracic aortic aneurysm, without rupture Status: Acute Assessment and Plan: Measured 4.8 cm. No need for intervention at this point. (9) Acute on chronic renal failure: Code(s): N17.9 - Acute kidney failure, unspecified; N18.9 - Chronic kidney disease, unspecified Status: Acute Assessment and Plan: Creatinine appears to be plateauing. Likely home tomorrow (10) CAD (coronary artery disease): Code(s): I25.10 - Atherosclerotic heart disease of [place] coronary artery without angina pectoris Status: Acute Assessment and Plan: Significant coronary disease noted by angiogram. High-grade proximal LAD stenosis. Ramus stenosis. Non dominant right coronary artery also has disease. Will need intervention. Decision will be made regarding PCI versus CABG. Will schedule follow-up with Dr. Perez in 1-2 weeks. Will treat his underlying pneumonia per pulmonology. Allow his kidneys and lungs to recover. He should return to hospital with recurrent chest pain. Nitroglycerin 0.4 mg sublingual p.r.n. chest pain. Subjective Date/time seen: 09/28/21 11:18 Interval history: 76-year-old admitted for chest pain. Date of service 09/28/2021: No chest pain, shortness of breath. Feels okay. Does have some lower extremity swelling. Review of Systems Review of Systems: All systems reviewed & are unremarkable except as noted in HPI and below Constitutional: Constitutional: Denies fatigue, Denies headache(s) and Denies weakness Eyes: Eyes: Denies blurry vision ENT: Reports Normal hearing present, Denies headache(s) and Denies neck pain Cardiovascular: Cardiovascular: Reports chest pain, Reports leg edema, Reports dyspnea and Reports dyspnea on exertion Respiratory: Respiratory: Reports dyspnea and Reports dyspnea on exertion Gastrointestinal: Gastrointestinal: Denies abdominal pain Genitourinary: Genitourinary: Denies dysuria Musculoskeletal: Musculoskeletal: Denies back pain, Denies neck pain and Denies numbness Integumentary/Breasts: Skin/Breast: Denies dry skin and Denies unusual bruising Neurologic: Reports Normal hearing present, Denies headache(s), Denies numbness and Denies weakness Psychiatric: Psychiatric: Denies anxiety Endocrine: End
[2021-09-28] MEDS: AMITRIPTYLINE HCL 10 MG TABLET PO (20:27)
[2021-09-29] VITALS: PULSE 68
[2021-09-29 03:25] VITALS: PULSE 69; O2SAT 95
[2021-09-29 04:00] VITALS: PULSE 63
[2021-09-29 05:08] VITALS: BP 117/82; PULSE 66; RESP 20; TEMP 36.2; O2SAT 99
[2021-09-29] MEDS: AZITHROMYCIN 250 MG TABLET PO (08:35)
[2021-09-29] MEDS: amLODIPine BESYLATE 5 MG TABLET PO (08:35)
[2021-09-29] MEDS: CYANOCOBALAMIN 1,000 MCG TABLET 1000 MCG PO (08:35)
[2021-09-29] MEDS: CHOLECALCIFEROL 400 UNITS TABLET (VIT D) PO (08:35)
[2021-09-29] MEDS: ASPIRIN 81 MG ENTERIC TABLET PO (08:35)
[2021-09-29] MEDS: MAGNESIUM OXIDE 400 MG TABLET PO (08:35)
[2021-09-29] MEDS: APIXABAN 5 MG TABLET PO (08:35)
[2021-09-29] MEDS: ROSUVASTATIN 10 MG TABLET 40 MG PO (08:35)
[2021-09-29] MEDS: allopurinoL 100 MG TABLET PO (08:35)
[2021-09-29] MEDS: POTASSIUM CHLORIDE 20 MEQ TABLET.ER PO (08:35)
[2021-09-29] MEDS: PANTOPRAZOLE 40 MG TABLET PO (08:35)
[2021-09-29] MEDS: CALCIUM CARBONATE (OSCAL) 500 MG TABLET 1000 MG PO (08:36)
[2021-09-29] MEDS: FLUTICASONE PROPIONATE 0.05% NA SPR 16 GM BTL (*BKC) 1 SPRAY NASAL (08:36)
[2021-09-29] MEDS: BUDESONIDE RESPULE NEB 0.5 MG/2 ML AMP INHALATION (08:54)
[2021-09-29 08:55] VITALS: PULSE 67; RESP 16
[2021-09-29 09:03] VITALS: PULSE 71; RESP 16
--- NOTE | 2021-09-29 09:20 | PM.PNCARD ---
Progress Note: A&P Assessment and Plan (1) Elevated troponin: Code(s): R77.8 - Other specified abnormalities of plasma proteins Status: Acute Assessment and Plan: Troponins have trended positive. Likely consistent with a non ST elevation myocardial infarction. Continue aspirin, statin, lisinopril, amlodipine. (2) Presence of permanent cardiac pacemaker: Code(s): Z95.0 - Presence of cardiac pacemaker Status: Acute Assessment and Plan: Ppm implanted in May 2021. (3) Atrial fibrillation: Code(s): I48.91 - Unspecified atrial fibrillation Status: Acute Assessment and Plan: Resumed anticoagulation with apixaban 5 mg p.o. b.i.d. (4) Chest pain: Code(s): R07.9 - Chest pain, unspecified Status: Acute Assessment and Plan: Resolved (5) Chronic kidney disease (CKD) stage G3b/A1, moderately decreased glomerular filtration rate (GFR) between 30-44 mL/min/1.73 square meter and albuminuria creatinine ratio less than 30 mg/g: Code(s): N18.3 - Chronic kidney disease, stage 3 (moderate) Status: Acute Assessment and Plan: Mild acute on chronic. BMP is ordered stat. If his renal function is stable, DC home (6) Chronic respiratory failure: Code(s): J96.10 - Chronic respiratory failure, unspecified whether with hypoxia or hypercapnia Status: Acute Assessment and Plan: On intermittent supplemental oxygen especially with activity (7) Essential (primary) hypertension: Code(s): I10 - Essential (primary) hypertension Status: Acute Assessment and Plan: Continue current meds. Blood pressure is reasonably controlled today (8) Thoracic ascending aortic aneurysm: Code(s): I71.2 - Thoracic aortic aneurysm, without rupture Status: Acute Assessment and Plan: Measured 4.8 cm. No need for intervention at this point. (9) Acute on chronic renal failure: Code(s): N17.9 - Acute kidney failure, unspecified; N18.9 - Chronic kidney disease, unspecified Status: Acute Assessment and Plan: Creatinine appears to be plateauing. Likely home tomorrow (10) CAD (coronary artery disease): Code(s): I25.10 - Atherosclerotic heart disease of [place] coronary artery without angina pectoris Status: Acute Assessment and Plan: Significant coronary disease noted by angiogram. High-grade proximal LAD stenosis. Ramus stenosis. Non dominant right coronary artery also has disease. Will need intervention. Decision will be made regarding PCI versus CABG. Will schedule follow-up with Dr. Perez in 1-2 weeks. Will treat his underlying pneumonia per pulmonology. Allow his kidneys and lungs to recover. He should return to hospital with recurrent chest pain. Nitroglycerin 0.4 mg sublingual p.r.n. chest pain. Will discontinue threat monitoring analyst today No further and patient cardiac workup needed Subjective Date/time seen: 09/29/21 09:20 Interval history: 76-year-old admitted for chest pain. Date of service 09/29/2021: No chest pain, shortness of breath. Feels okay. Does have some lower extremity swelling. No groin pain Review of Systems Review of Systems: All systems reviewed & are unremarkable except as noted in HPI and below Constitutional: Constitutional: Denies fatigue, Denies headache(s) and Denies weakness Eyes: Eyes: Denies blurry vision ENT: Reports Normal hearing present, Denies headache(s) and Denies neck pain Cardiovascular: Cardiovascular: Reports chest pain, Reports leg edema, Reports dyspnea and Reports dyspnea on exertion Respiratory: Respiratory: Reports dyspnea and Reports dyspnea on exertion Gastrointestinal: Gastrointestinal: Denies abdominal pain Genitourinary: Genitourinary: Denies dysuria Musculoskeletal: Musculoskeletal: Denies back pain, Denies neck pain and Denies numbness Integumentary/Breasts: Skin/Breast: Denies dry skin and Denies unusual bru
[2021-09-29 09:56] LABS: Anion Gap 10 mmol/L (8-16); Blood Urea Nitrogen 32 mg/dL (9-20); Calcium 8.7 mg/dL (8.4-10.2); Carbon Dioxide 25 mmol/L (22-30); Chloride 100 mmol/L (98-107); Estimated CRCL calculation 52 ml/min; Estimated Glomerular Filt Rate 46; Glucose 120 mg/dL (65-110); Potassium 4.2 mmol/L (3.4-5.0); Sodium 135 mmol/L (137-145)
--- NOTE | 2021-09-29 10:09 | PM.DS ---
DS: Admitting Diagnosis Discharge Date 09/29/2021 Admitting Diagnosis Chest pain DS: Discharge Diagnosis Discharge Diagnosis (1) Chest pain: Code(s): R07.9 - Chest pain, unspecified Status: Acute Assessment and Plan: Trop 0.025 on admission trended to-->0.038 Diagnosed with acute coronary syndrome/non ST elevation [place] [facility] consulted. status post cardiac catheterization 09/26/2021 1. 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 . 2. Dominant circumflex with high-grade 90-95% stenosis in the large 1st OM branch and diffuse disease in the posterolateral and left PDA. 3. Mild LV enlargement with mild global systolic dysfunction 4. markedly dilated ascending thoracic aorta which made catheter engagement the left coronary artery very difficult. Thoracic aortic pathology was not apparently known prior to this case Discussed Surgical evaluation versus PCI. Plan for it to be done as an outpatient basis once pneumonia clears up which showed up on evaluation during hospitalization (2) Atrial fibrillation with slow ventricular response: Code(s): I48.91 - Unspecified atrial fibrillation Status: Acute Assessment and Plan: Patient is anticoagulated, Eliquis was placed on whole temporary day which was resumed during the hospital stay and will remain at discharge Pacemaker in place recently placed by Dr. Carroll (3) Presence of permanent cardiac pacemaker: Code(s): Z95.0 - Presence of cardiac pacemaker Status: Acute Assessment and Plan: Continue to monitor (4) Obstructive sleep apnea: Code(s): G47.33 - Obstructive sleep apnea (adult) (pediatric) Status: Acute Assessment and Plan: Patient uses CPAP at nighttime which was continued during the hospital stay (5) Chronic respiratory failure: Code(s): J96.10 - Chronic respiratory failure, unspecified whether with hypoxia or hypercapnia Status: Acute Assessment and Plan: On supplemental oxygen Continue home meds Continue to monitor (6) Supplemental oxygen dependent: Code(s): Z99.81 - Dependence on supplemental oxygen Status: Acute Assessment and Plan: Continue supplemental oxygen At baseline currently (7) COPD with emphysema: Code(s): J43.9 - Emphysema, unspecified Status: Acute Assessment and Plan: No acute exacerbation Continue home meds (8) Chronic kidney disease (CKD) stage G3b/A1, moderately decreased glomerular filtration rate (GFR) between 30-44 mL/min/1.73 square meter and albuminuria creatinine ratio less than 30 mg/g: Code(s): N18.3 - Chronic kidney disease, stage 3 (moderate) Status: Acute Assessment and Plan: Post catheterization, Creatinine continued to worsen up to 1.9 suggesting NITZA on CKD stage 3. Held lisinopril and diuretic and recheck levels trended down back toward his baseline at the time of discharge (9) Idiopathic chronic gout, unspecified ankle and foot, without tophus (tophi): Code(s): M1A.0790 - Idiopathic chronic gout, unspecified ankle and foot, without tophus (tophi) Status: Acute Assessment and Plan: Continue allopurinol Continue to monitor (10) BPH without obstruction/lower urinary tract symptoms: Code(s): N40.0 - Benign prostatic hyperplasia without lower urinary tract symptoms Status: Acute Assessment and Plan: Appears the patient is not on finasteride or tamsulosin (11) Gastro-esophageal reflux disease without esophagitis: Code(s): K21.9 - Gastro-esophageal reflux disease without esophagitis Status: Acute Assessment and Plan: PPI as needed (12) Thoracic ascending aortic aneurysm: Code(s): I71.2 - Thoracic aortic aneurysm, without rupture Status: Acute Assessment and P
== END 2021-09-29 11:45 | disposition home or self-care (01) | DRG 280 ==
LOC: ANHED 20:37 → ANHIMU 20:57 → ANH2MED 09-29 10:09 → ANHIMU 10-01 13:43
PROVIDERS: Internal Medicine Cardiovascular Disease; Nurse Practitioner Adult Health; Specialist; Admitting Provider Internal Medicine; Emergency Provider Emergency Medicine; PCP Family Medicine; Visit Provider Internal Medicine
PROC: 4A023N7 Measurement of Cardiac Sampling and Pressure, Left Heart, Percutaneous Approach (ICD-10-PCS; CPT 93452; principal; 2021-09-26 10:00)
DX: I21.4 Non-ST elevation (NSTEMI) myocardial infarction (principal); J18.9 Pneumonia, unspecified organism; J96.10 Chronic respiratory failure, unspecified whether with hypoxia or hypercapnia; Z68.41 Body mass index [BMI] 40.0-44.9, adult; I48.20 Chronic atrial fibrillation, unspecified; Z88.0 Allergy status to penicillin; J43.1 Panlobular emphysema; Z86.73 Personal history of transient ischemic attack (TIA), and cerebral infarction without residual deficits; Z87.891 Personal history of nicotine dependence; E66.01 Morbid (severe) obesity due to excess calories; Z95.0 Presence of cardiac pacemaker; Z99.81 Dependence on supplemental oxygen; I12.9 Hypertensive chronic kidney disease with stage 1 through stage 4 chronic kidney disease, or unspecified chronic kidney disease; N18.32 Chronic kidney disease, stage 3b; K21.9 Gastro-esophageal reflux disease without esophagitis; E78.5 Hyperlipidemia, unspecified; I89.0 Lymphedema, not elsewhere classified; G47.33 Obstructive sleep apnea (adult) (pediatric); M1A.0790 Idiopathic chronic gout, unspecified ankle and foot, without tophus (tophi); N40.0 Benign prostatic hyperplasia without lower urinary tract symptoms; Z79.01 Long term (current) use of anticoagulants; R91.8 Other nonspecific abnormal finding of lung field; I25.10 Atherosclerotic heart disease of native coronary artery without angina pectoris
CPT/HCPCS: 36415; 71046; 71250; 80048; 80069; 82948; 84484; 85025; 85610; 85730; 93005; 93458; 94640; 99285; A9270; C1769; C1887; C1894; C8929; G0378; J1644; J2250; J3010; J7030; J7040; Q9957

== ENCOUNTER 2021-11-05 14:37 | Outpatient (CLI) | payer MEDICARE, SELFPAY ==
--- NOTE | ~2021-11-05 | US_ITS ---
EXAMINATION: US arterial duplex LE RT DATE: 11/05/2021 16:52 INDICATION: Intraoperative hemorrhage and hematoma of a circulatory system organ or structure complic ating a cardiac catheterization. TECHNIQUE: Multiple grayscale and Doppler ultrasound images of the right inguinal region were obtaine d. COMPARISON: None FINDINGS: The right common femoral artery, superficial femoral artery, and profunda femoral artery ar e normal. Right common femoral vein and femoral vein are patent. IMPRESSION: 1. No pseudoaneurysm. Reviewed, dictated and finalized at location A. CARE COORDINATOR IMPRESSION: 1. No pseudoaneurysm.
[2021-11-05 15:03] LABS: Basophils Absolute Auto 0.1 K/mm3 (0.0-0.1); Basophils Percent Auto 0.5 % (0.2-1.2); Eosinophils Absolute Auto 0.2 K/mm3 (0-0.3); Eosinophils Percent Auto 1.9 % (0-4.4); Hematocrit 40.8 % (42.0-52.0); Hemoglobin 12.9 g/dL (14.0-18.0); Immature Granulocyte Absolute 0.04 K/mm3 (0.00-0.031); Immature Granulocyte Percent A 0.4 % (0-0.5); Lymphocytes Percent Auto 12.7 % (18.3-44.2); Mean Corpuscular HGB Conc 31.6 g/dl (32-36); Mean Corpuscular Hemoglobin 31.8 pg (26-34); Mean Corpuscular Volume 100.5 fl (80-100); Mean Platelet Volume 9.7 fl (7.4-10.4); Monocytes Absolute Auto 1.1 K/mm3 (0.1-0.6); Monocytes Percent Auto 11.1 % (2.6-8.5); Neutrophils Absolute Auto 7.5 K/mm3 (1.3-6.7); Neutrophils Percent Auto 73.4 % (45.5-73.1); Platelet Count Result 249 k/mm3 (150-375); Red Blood Count 4.06 M/mm3 (4.6-6.20); Red Cell Distribution Width 15.7 % (11.5-14.5); White Blood Count 10.3 K/mm3 (4.5-10.0)
== END 2021-11-05 14:38 | disposition home or self-care (01) ==
PROVIDERS: PCP Family Medicine; Visit Provider Internal Medicine Cardiovascular Disease
DX: S30.1XXA Contusion of abdominal wall, initial encounter (principal); X58.XXXA Exposure to other specified factors, initial encounter; I97.630 Postprocedural hematoma of a circulatory system organ or structure following a cardiac catheterization; M96.831 Postprocedural hemorrhage of a musculoskeletal structure following other procedure
CPT/HCPCS: 36415; 85025; 93926

== ENCOUNTER → 2021-12-31 00:51 | Outpatient (CLI) | payer MEDICARE, SELFPAY ==
[2021-12-31 17:03] LABS: SARS-CoV-2 RNA PCR Negative
== END ==
PROVIDERS: Visit Provider Internal Medicine Cardiovascular Disease
DX: Z01.812 Encounter for preprocedural laboratory examination (principal); Z20.822 Contact with and (suspected) exposure to COVID-19
CPT/HCPCS: C9803; U0003; U0005

== ENCOUNTER 2022-05-22 09:45 | Outpatient (RCR) | payer MEDICARE, SELFPAY ==
[2022-02-15 15:41] VITALS: PULSE 87
== END 2022-05-22 13:58 | disposition home or self-care (01) ==
LOC: ANHCPREHAB 09:45
PROVIDERS: PCP Family Medicine; Visit Provider Nurse Practitioner Adult Health
DX: Z95.5 Presence of coronary angioplasty implant and graft (principal)
CPT/HCPCS: 93798

== ENCOUNTER 2022-07-22 16:57 | Emergency (ER) | payer MEDICARE, SELFPAY ==
--- NOTE | ~2022-07-22 | XR_ITS ---
EXAM: XR foot RT min 3V DATE: 07/22/2022 22:34 HISTORY: Ulcer over plantar aspect of prox R great toe . COMPARISON: None available. FINDINGS: Decreased mineralization. No fracture or dislocation. No lytic or blastic lesion. Scattere d degenerative changes. Pes planus. Plantar enthesopathy. Hallux valgus. No erosion or periosteal evonne nge. Soft tissues within normal limits. IMPRESSION: No acute osseous finding in the right foot. No radiographic evidence of osteomyelitis. Reviewed, dictated and finalized at location K. IMPRESSION: No acute osseous finding in the right foot. No radiographic evidenc e of osteomyelitis.
[2022-07-22 17:18] VITALS: BP 131/71; PULSE 64; RESP 18; TEMP 36.6; O2SAT 99
[2022-07-22 17:34] LABS: Basophils Percent Auto 0.5 % (0.2-1.2); Eosinophils Absolute Auto 0.1 K/mm3 (0-0.3); Eosinophils Percent Auto 1.2 % (0-4.4); Hematocrit 48.8 % (42.0-52.0); Hemoglobin 15.6 g/dL (14.0-18.0); Immature Granulocyte Absolute 0.03 K/mm3 (0.00-0.031); Immature Granulocyte Percent A 0.4 % (0-0.5); Lymphocytes Absolute Auto 1.01 K/mm3 (0.9-3.2); Lymphocytes Percent Auto 13.2 % (18.3-44.2); Mean Corpuscular Hemoglobin 32.3 pg (26-34); Mean Platelet Volume 9.4 fl (7.4-10.4); Monocytes Absolute Auto 0.6 K/mm3 (0.1-0.6); Monocytes Percent Auto 8.1 % (2.6-8.5); Neutrophils Absolute Auto 5.9 K/mm3 (1.3-6.7); Neutrophils Percent Auto 76.6 % (45.5-73.1); Platelet Count Result 239 k/mm3 (150-375); Red Blood Count 4.83 M/mm3 (4.6-6.20); Red Cell Distribution Width 14.5 % (11.5-14.5); White Blood Count 7.7 K/mm3 (4.5-10.0)
[2022-07-22 17:43] LABS: Alanine Aminotransferase 26 U/L (6-50); Albumin Level 4.1 g/dL (3.5-5.1); Alkaline Phosphatase 121 U/L (38-126); Anion Gap 11 mmol/L (8-16); Aspartate Amino Transferase 33 U/L (17-59); Bilirubin,Total 0.6 mg/dL (0.2-1.3); Blood Urea Nitrogen 32 mg/dL (9-20); Calcium 9.2 mg/dL (8.4-10.2); Carbon Dioxide 25 mmol/L (22-30); Chloride 102 mmol/L (98-107); Estimated CRCL calculation 50 ml/min; Estimated Glomerular Filt Rate 42; Glucose 111 mg/dL (65-110); Potassium 4.6 mmol/L (3.4-5.0); Sodium 138 mmol/L (137-145)
[2022-07-22 20:41] VITALS: BP 135/80; PULSE 81; RESP 18; TEMP 36.1; O2SAT 100
--- NOTE | 2022-07-22 22:47 | ED.GENADULT ---
HPI - General Adult General Chief complaint: Extremity Problem,Nontraumatic Stated complaint: right great toe redness/swelling Time Seen by Provider: 07/22/22 21:38 History of Present Illness HPI narrative: this is a 77-year-old male presenting ED with chief complaint of right toe pain. Patient noticed last Friday that he developed a blister on the base of his right foot. His has been treating it with antibiotic ointment. It is improved since then although there is some pain, and erythema and swelling of the toe. Patient is not diabetic. Related Data Home Medications Medication Instructions Recorded Confirmed cholecalciferol (vitamin D3) 10 400 unit PO DAILY 09/21/19 03/11/22 mcg (400 unit) capsule cyanocobalamin (vitamin B-12) 1,000 mcg PO DAILY 09/21/19 04/29/22 1,000 mcg tablet (Vitamin B-12) magnesium oxide 500 mg tablet 500 mg PO BID 09/21/19 03/11/22 omeprazole 20 mg capsule,delayed 20 mg PO DAILY 09/21/19 03/11/22 release potassium chloride 20 mEq 20 meq PO QMWFSA 09/21/19 03/11/22 tablet,extended release furosemide 40 mg tablet 40 mg PO BID 09/30/19 03/11/22 calcium carbonate 500 mg calcium 1,000 mg PO TID 12/14/19 03/11/22 (1,250 mg) capsule (Calci-Mix) rosuvastatin 40 mg tablet 40 mg PO DAILY 03/23/20 03/11/22 arformoterol 15 mcg/2 mL solution 2 ml inhalation BID 04/01/21 03/11/22 for nebulization (Brovana) fluticasone propionate 50 1 spray intranasal DAILY 08/09/21 03/11/22 mcg/actuation nasal spray,suspension (Flonase Allergy Relief) budesonide 0.5 mg/2 mL suspension 0.5 mg inhalation BID 09/23/21 03/11/22 for nebulization clopidogrel 75 mg tablet (Plavix) 75 mg PO DAILY 01/15/22 03/11/22 amlodipine 10 mg tablet 10 mg PO DAILY 03/11/22 03/11/22 ezetimibe 10 mg tablet 10 mg PO DAILY 04/29/22 04/29/22 ezetimibe 10 mg tablet 10 mg PO DAILY 05/22/22 05/22/22 Allergies Allergy/AdvReac Type Severity Reaction Status Date / Time levofloxacin Allergy Unknown unk Verified 06/25/22 09:12 Penicillins Allergy Unknown unk Verified 06/25/22 09:12 Review of Systems Review of Systems: CONSTITUTIONAL: Denies night sweats. EYES: No eye pain ENT: Denies rhinorrhea CARDIOVASCULAR: Denies palpitations RESPIRATORY: Denies hemoptysis GASTROINTESTINAL: Denies hematemesis GENITOURINARY: Denies hematuria. SKIN: Denies rash MUSCULOSKELETAL: Denies myalgia. NEUROLOGIC: Denies weakness. PSYCHIATRIC: Denies delusions [facility] Past Medical History Medical History Abrasion of ear canal Acute CVA (cerebrovascular accident) Acute dehydration Acute kidney injury Acute on chronic kidney failure Acute sinusitis Anemia At high risk for falls Bradycardia CAD (coronary artery disease) Candidiasis of other urogenital sites Chronic kidney disease (CKD) stage G3b/A1, moderately decreased glomerular filtration rate (GFR) between 30-44 mL/min/1.73 square meter and albuminuria creatinine ratio less than 30 mg/g Chronic low back pain without sciatica Chronic respiratory failure Close exposure to COVID-19 virus (~04/11/22) exposed to granddaughter and both with COVID. Preventative monoclonal antibody infusion because of risk factors. COPD exacerbation Emphysematous bleb Hearing loss associated with syndrome of both ears History of CVA (cerebrovascular accident) History of tobacco abuse Morbid obesity with BMI of 40.0-44.9, adult Obstructive sleep apnea treated with BiPAP Otalgia of both ears Presence of permanent cardiac pacemaker Severe chronic obstructive pulmonary disease Supplemental oxygen dependent Surgical History Surgical History H/O foot surgery Hammer toe surgery on the 2nd and 3rd toe on the right foot. H/O hernia repair History of appendectomy History of lung surgery extraction of a blood that was grapefruit size from the right lung. Family History Family History (Review
[2022-07-22] MEDS: DOXYCYCLINE HYCLATE 100 MG TABLET PO (23:47)
== END 2022-07-22 23:58 | disposition home or self-care (01) ==
PROVIDERS: Emergency Medicine; Emergency Provider Emergency Medicine; PCP Family Medicine
DX: L97.519 Non-pressure chronic ulcer of other part of right foot with unspecified severity (principal); D64.9 Anemia, unspecified; I25.10 Atherosclerotic heart disease of native coronary artery without angina pectoris; J44.9 Chronic obstructive pulmonary disease, unspecified; G47.30 Sleep apnea, unspecified; Z95.0 Presence of cardiac pacemaker; Z86.73 Personal history of transient ischemic attack (TIA), and cerebral infarction without residual deficits; N18.32 Chronic kidney disease, stage 3b
CPT/HCPCS: 36415; 73630; 80053; 85025; 99283; A9270

== ENCOUNTER 2022-08-29 14:25 | Outpatient (CLI) | payer MEDICARE, SELFPAY ==
--- NOTE | ~2022-08-29 | CT_ITS ---
EXAMINATION:CT lung screening DATE: 08/29/2022 14:56 INDICATION: Personal history of tobacco dependence. Smoker who quit 7 years ago with 48 pack year his tory. TECHNIQUE: Computed tomography (CT) of the chest was performed without intravenous contrast. Automate d exposure control and iterative reconstruction technique were employed. The dose-length product (DLP ) was 459.47 mGy-cm. COMPARISON: Chest CT 09/27/2021, CT abdomen and pelvis 05/04/19 FINDINGS: There is severe emphysema. There is peripheral septal thickening in the lungs. There is a s taple line in right lower lobe. There are nodules in the lungs measuring up to 3 mm. Calcified right lung nodules and calcified right hilar lymph nodes are consistent with old granulomatous disease. No pleural effusion. Cardiomegaly is noted. There is a pacer wire in right ventricle. There are coronary artery calcifications. No pericardial effusion. The central pulmonary arteries are enlarged, consist ent with pulmonary arterial hypertension. Thoracic aorta measures 4.8 cm at the sinuses of Valsalva, 4.4 cm at the sinotubular junction, 4.6 cm in the mid ascending aorta, 3.8 cm at the isthmus, and 4.4 cm in proximal descending aorta. Again seen is a 12 mm hemorrhagic cyst in right kidney. Partially v isualized is a 3.4 x 2.5 cm mass posterior to the inferior vena cava. There is severe thoracic spondy losis. Thoracic dextroscoliosis is noted. IMPRESSION: 1. 3.4 x 2.5 cm mass posterior to the inferior vena cava suspicious for malignancy, new from 9. Abdomen and pelvis CT with contrast is recommended. 2. Lung-RADS category 2: Benign appearance or behavior. Continue annual screening with noncontrast lo w-dose chest CT in 12 months. Reviewed, dictated and finalized at location A. IMPRESSION: 1. 3.4 x 2.5 cm mass posterior to the inferior vena cava suspicious for maligna ncy, new from 05/04/2019. Abdomen and pelvis CT with contrast is recommended. 2. Lung-RADS category 2: Benign appearance or behavior. Continue annual screeni ng with noncontrast low-dose chest CT in 12 months.
== END 2022-08-29 14:26 | disposition home or self-care (01) ==
PROVIDERS: PCP Family Medicine; Visit Provider Internal Medicine Critical Care Medicine
DX: Z12.2 Encounter for screening for malignant neoplasm of respiratory organs (principal); Z87.891 Personal history of nicotine dependence; R91.8 Other nonspecific abnormal finding of lung field
CPT/HCPCS: 71271

== ENCOUNTER 2022-10-11 13:31 | Outpatient (CLI) | payer MEDICARE, SELFPAY ==
--- NOTE | ~2022-10-11 | CT_ITS ---
EXAMINATION: CT abdomen pelvis w con DATE: 10/11/2022 14:03 INDICATION: Abdominal mass seen on recent CT. TECHNIQUE: Computed tomography (CT) of the abdomen and pelvis was performed with 100 cc Omnipaque 350 intravenous contrast. The dose-length product was 1520.20 mGy-cm. Automated exposure control and ite rative reconstruction technique were employed. COMPARISON: CT dated 08/29/2022 FINDINGS: There is emphysema. There are coarse peripheral interstitial densities with subpleural band s, suspicious for superimposed interstitial fibrosis. Cardiomegaly. No significant pleural effusion. No pericardial effusion. There is atherosclerosis. There is a hyperdense 2.2 x 1.9 cm mass of the rig ht kidney measuring 52 Hounsfield units, suspicious for renal cell carcinoma. There is another interm ediate density mass posterior margin of the right kidney measuring 12 mm. There is a 7.7 cm right khanh al cyst at the lower pole. The left kidney is atrophic. There is an intermediate density mass at the lower pole of the left kidney measuring 25 Hounsfield units measuring 1.9 x 1.7 cm. There is a mass p osterior to the IVC at and below the level of the renal artery measuring 3.3 x 3.6 x 2.6 cm, likely a pathologic lymph node. The liver, spleen, pancreas, adrenal glands are unremarkable. Nonobstructive bowel gas pattern. There is a moderate sized umbilical hernia containing fat. Colonic diverticulosis without evidence for div erticulitis. Nonobstructive bowel gas pattern. No abnormal pelvic masses or fluid collections. No jose picious focal lytic or sclerotic lesions. Moderate lower thoracic and lumbar spondylosis. There is ec buddy of the common iliac arteries bilaterally. IMPRESSION: 1. Suspicious intermediate density. Bilateral renal masses. Cannot exclude renal cell carcinoma. Rob mmend correlation with MRI. Abnormal mass at the level of the right renal artery posterior to the IVC measures up to 3.6 cm, suspicious for pathologic lymph node, possibly metastatic disease. 2: Moderate sized 3: Emphysema of the lung bases with coarse interstitial changes peripherally, likely chronic. Umbilic al hernia containing fat. Reviewed, dictated and finalized at location A. H ROLLER OPERATOR IMPRESSION: 1. Suspicious intermediate density. Bilateral renal masses. Cannot exclude jc l cell carcinoma. Recommend correlation with MRI. Abnormal mass at the level of the right renal artery posterior to the IVC measures up to 3.6 cm, suspicious for pathologic lymph node, possibly metastatic disease. 2: Moderate sized 3: Emphysema of the lung bases with coarse interstitial changes peripherally, l ikely chronic. Umbilical hernia containing fat.
[2022-10-11 13:54] LABS: Estimated Glomerular Filt Rate 42
== END 2022-10-11 13:32 | disposition home or self-care (01) ==
PROVIDERS: PCP Family Medicine; Visit Provider Nurse Practitioner Family
DX: R19.00 Intra-abdominal and pelvic swelling, mass and lump, unspecified site (principal); N28.89 Other specified disorders of kidney and ureter; J43.9 Emphysema, unspecified; K42.9 Umbilical hernia without obstruction or gangrene
CPT/HCPCS: 74177; Q9967

== ENCOUNTER 2022-10-24 14:56 | Emergency (ER) | payer MEDICARE, SELFPAY ==
[2022-10-24 15:12] VITALS: BP 138/82; PULSE 76; RESP 20; TEMP 36.9; O2SAT 99
--- NOTE | 2022-10-24 15:14 | ED.URI ---
HPI - URI/Sore Throat General Chief Complaint: Upper Respiratory Infection Stated Complaint: cough,congestion Time Seen by Provider: 10/24/22 15:16 Source: patient, family (), RN notes reviewed and old records reviewed Mode of arrival: ambulatory Limitations: no limitations History of Present Illness HPI Narrative: 77-year-old male with a history of emphysema, high blood pressure, AFib presents to the [facility] and advice of Dr. Justice. presents with 3 days of cough, congestion. To go home COVID test which they report is negative. Concern for influenza A. is a very good historian Related Data Home Medications Medication Instructions Recorded Confirmed cholecalciferol (vitamin D3) 10 400 unit PO DAILY 09/21/19 07/30/22 mcg (400 unit) capsule cyanocobalamin (vitamin B-12) 1,000 mcg PO DAILY 09/21/19 07/30/22 1,000 mcg tablet (Vitamin B-12) magnesium oxide 500 mg tablet 500 mg PO BID 09/21/19 07/30/22 omeprazole 20 mg capsule,delayed 20 mg PO DAILY 09/21/19 07/30/22 release potassium chloride 20 mEq 20 meq PO QMWFSA 09/21/19 07/30/22 tablet,extended release furosemide 40 mg tablet 40 mg PO BID 09/30/19 07/30/22 calcium carbonate 500 mg calcium 1,000 mg PO TID 12/14/19 07/30/22 (1,250 mg) capsule (Calci-Mix) rosuvastatin 40 mg tablet 40 mg PO DAILY 03/23/20 07/30/22 fluticasone propionate 50 1 spray intranasal DAILY 08/09/21 07/30/22 mcg/actuation nasal spray,suspension (Flonase Allergy Relief) clopidogrel 75 mg tablet (Plavix) 75 mg PO DAILY 01/15/22 07/30/22 amlodipine 10 mg tablet 10 mg PO DAILY 03/11/22 07/30/22 ezetimibe 10 mg tablet 10 mg PO DAILY 07/30/22 07/30/22 Allergies Allergy/AdvReac Type Severity Reaction Status Date / Time levofloxacin Allergy Unknown unk Verified 10/24/22 15:35 Penicillins Allergy Unknown unk Verified 10/24/22 15:35 Review of Systems Review of Systems: All systems reviewed & are unremarkable except as noted in HPI and below Constitutional: Constitutional: Reports no additional constitutional complaints Eyes: Eyes: Reports no additional eye complaints ENT: Reports system reviewed and no additional complaints, except as documented Cardiovascular: Cardiovascular: Reports as per HPI, Denies chest pain and Reports dyspnea Respiratory: Respiratory: Reports as per HPI, Reports no additional respiratory complaints, Reports chest congestion, Reports cough and Reports dyspnea Gastrointestinal: Gastrointestinal: Reports no additional gastrointestinal complaints, Denies abdominal pain, Denies nausea and Denies vomiting Musculoskeletal: Musculoskeletal: Reports no additional musculoskeletal complaints Integumentary/Breasts: Skin/Breast: Reports system reviewed and no additional complaints, except as docu Neurologic: Reports system reviewed and no additional complaints, except as documented Psychiatric: Psychiatric: Reports no additional psychiatric complaints Allergic/Immunologic: Allergic/Immunologic: Reports no additional allergic/immunologic complaints PMFSH Past Medical History Medical History Abrasion of ear canal Acute CVA (cerebrovascular accident) Acute dehydration Acute kidney injury Acute on chronic kidney failure Acute sinusitis Anemia Resolved with hemoglobin 14.5, hematocrit 43.4, iron 76 with 28% saturation and ferritin 83 with vitamin B12 685 and folic acid 5.8 on 07/26/2022. At high risk for falls Bradycardia CAD (coronary artery disease) Candidiasis of other urogenital sites Chronic kidney disease (CKD) stage G3b/A1, moderately decreased glomerular filtration rate (GFR) between 30-44 mL/min/1.73 square meter and albuminuria creatinine ratio less than 30 mg/g BUN 37, creatinine 1.62 with GFR 44 on 07/26/2022. Chronic low back pain without sciatica Chronic respiratory failure Close exposure to COVID-19 virus (~04/11/22) exposed to granddaughter and both with COVID. Preventati
== END 2022-10-24 16:24 | disposition home or self-care (01) ==
PROVIDERS: Emergency Provider Nurse Practitioner; PCP Family Medicine
DX: J44.9 Chronic obstructive pulmonary disease, unspecified (principal); Z87.891 Personal history of nicotine dependence; I12.9 Hypertensive chronic kidney disease with stage 1 through stage 4 chronic kidney disease, or unspecified chronic kidney disease; N18.32 Chronic kidney disease, stage 3b; I25.10 Atherosclerotic heart disease of native coronary artery without angina pectoris; E66.01 Morbid (severe) obesity due to excess calories; Z68.41 Body mass index [BMI] 40.0-44.9, adult; Z95.0 Presence of cardiac pacemaker; Z99.81 Dependence on supplemental oxygen; I48.91 Unspecified atrial fibrillation
CPT/HCPCS: 87804; 99213; G0463

== ENCOUNTER 2023-09-09 13:36 | Outpatient (CLI) | payer MEDICARE, SELFPAY ==
--- NOTE | ~2023-09-09 | CT_ITS ---
EXAMINATION: CT lung screening DATE: 09/09/2023 14:19 INDICATION: Personal history of nicotine dependence TECHNIQUE: Computed tomography (CT) of the chest was performed without intravenous contrast. The dose -length product was 445.95 mGy-cm. Automated exposure control and iterative reconstruction technique were employed. COMPARISON: CT dated 08/29/2022 FINDINGS: Complex intermediate density 6.3 cm right renal mass, compatible with renal cell carcinoma until proven otherwise. Recommend correlation with MRI without and with contrast. Left kidney is not well visualized. Cardiomegaly. There is atherosclerosis of the aorta and coronary arteries with ectas ia. There is a pseudoaneurysm of the aortic arch. Shotty nonenlarged mediastinal lymph nodes, likely reactive. No significant pleural or pericardial effusion. There are gallstones. Severe emphysema. Pac emaker leads are in expected position. There is dependent atelectasis. No endobronchial lesions. Ther e is a 4 mm right upper lobe nodule, image 40, likely benign. No pneumothorax. Mild chronic interstit ial lung disease predominantly affecting the lower lobes peripherally. IMPRESSION: 1. Lung-RADS category 2: Benign appearance or behavior. Continue annual screening with noncontrast lo w-dose chest CT in 12 months. 2: New complex intermediate density right renal mass, compatible with renal cell carcinoma until prov en otherwise. Recommend correlation with MRI of the abdomen without and with contrast. 3: Cholelithiasis. Reviewed, dictated and finalized at location A. IMPRESSION: 1. Lung-RADS category 2: Benign appearance or behavior. Continue annual screeni ng with noncontrast low-dose chest CT in 12 months. 2: New complex intermediate density right renal mass, compatible with renal luci l carcinoma until proven otherwise. Recommend correlation with MRI of the abdom en without and with contrast. 3: Cholelithiasis.
== END 2023-09-09 13:37 | disposition home or self-care (01) ==
PROVIDERS: PCP Family Medicine; Visit Provider Internal Medicine Critical Care Medicine
DX: Z12.2 Encounter for screening for malignant neoplasm of respiratory organs (principal); Z87.891 Personal history of nicotine dependence; N28.89 Other specified disorders of kidney and ureter; K80.20 Calculus of gallbladder without cholecystitis without obstruction
CPT/HCPCS: 71271

== ENCOUNTER 2024-06-01 13:50 | Emergency (ER) | payer MEDICARE, SELFPAY ==
--- NOTE | ~2024-06-01 | XR_ITS ---
XR tibia fibula LT 2V Ordering provider: Saumya Mcpherson MD History: . infection . Comparison: None. FINDINGS: BONES: No acute fracture or dislocation. Calcaneal spur. JOINT SPACES: Osteoarthritic changes seen laterally. SOFT TISSUES: Normal. IMPRESSION: No acute osseous abnormality left leg. Reviewed, dictated and finalized at location A.
--- NOTE | ~2024-06-01 | US_ITS ---
EXAMINATION: US venous doppler [facility] DATE: 06/01/2024 17:06 INDICATION: chronic venous insufficiency; r/o DVT . TECHNIQUE: Grayscale images without and with compression and Doppler images of the bilateral lower ex tremity veins were obtained. COMPARISON: None FINDINGS: The right common femoral vein, profunda (deep) femoral vein, femoral vein, popliteal vein, peroneal v ein, posterior tibial veins, and greater saphenous vein are patent. The left common femoral vein, profunda (deep) femoral vein, femoral vein, popliteal vein, peroneal v ein, posterior tibial veins, and greater saphenous vein are patent. There is a partially thrombosed s uperficial vein in the left popliteal fossa. IMPRESSION: Patent bilateral lower extremity veins. No evidence of deep venous thrombosis. Superficial venous thr ombosis in the left popliteal fossa. Reviewed, dictated and finalized at location K. IMPRESSION: Patent bilateral lower extremity veins. No evidence of deep venous thrombosis. Superficial venous thrombosis in the left popliteal fossa.
[2024-06-01 13:53] VITALS: BP 169/84; PULSE 69; RESP 20; TEMP 36.8; O2SAT 98
[2024-06-01 15:16] LABS: Basophils Percent Auto 0.3 % (0.2-1.2); Eosinophils Percent Auto 0.1 % (0-4.4); Hematocrit 39.5 % (42.0-52.0); Hemoglobin 12.3 g/dL (14.0-18.0); Immature Granulocyte Absolute 0.06 K/mm3 (0.00-0.031); Immature Granulocyte Percent A 0.8 % (0-0.5); Lymphocytes Absolute Auto 0.45 K/mm3 (0.9-3.2); Lymphocytes Percent Auto 5.9 % (18.3-44.2); Mean Corpuscular HGB Conc 31.1 g/dl (32-36); Mean Corpuscular Volume 109.1 fl (80-100); Mean Platelet Volume 9.9 fl (7.4-10.4); Monocytes Absolute Auto 0.5 K/mm3 (0.1-0.6); Neutrophils Absolute Auto 6.6 K/mm3 (1.3-6.7); Neutrophils Percent Auto 85.9 % (45.5-73.1); Platelet Count Result 185 k/mm3 (150-375); Red Blood Count 3.62 M/mm3 (4.6-6.20); Red Cell Distribution Width 18.6 % (11.5-14.5); White Blood Count 7.7 K/mm3 (4.5-10.0)
[2024-06-01 15:23] LABS: INR 1.4; Prothrombin Time 17.5 Seconds (11.1-14.7)
[2024-06-01 15:24] LABS: Lactic Acid Reflex 2.1 mmol/L (0.7-2.0); Partial Thromboplastin Time 30.4 Seconds (22.3-36.8)
--- NOTE | 2024-06-01 15:27 | ED.LOWEXIN ---
HPI - Extremity Injury (Lower) General Chief Complaint: Extremity Injury, Lower Stated Complaint: open wounds to legs Time Seen by Provider: 06/01/24 15:14 Source: patient and family Limitations: no limitations History of Present Illness HPI Narrative: Patient presents with bilateral lower extremity edema and a wound on the anterior surface of his mid left leg/silveira which has been bleeding. Patient had been on Lasix 40mg BID but this was changed to 80mg QAM and 40mg Q PM by Dr Perez 1 week ago. He was recently hospitalized for adrenal insufficiency at [facility]. They recommended follow up at their lymphedema clinic. No fevers. Patient wears O2 at baseline, NC at 2LPM. He also uses BIPAP QHS Related Data Home Medications Medication Instructions Recorded Confirmed cholecalciferol (vitamin D3) 10 400 unit PO DAILY 09/21/19 06/02/24 mcg (400 unit) capsule cyanocobalamin (vitamin B-12) 1,000 mcg PO DAILY 09/21/19 06/02/24 1,000 mcg tablet (Vitamin B-12) omeprazole 20 mg capsule,delayed 20 mg PO DAILY 09/21/19 06/02/24 release calcium carbonate (Calci-Mix) 1,000 mg PO TID 12/14/19 06/02/24 fluticasone propionate 50 1 spray intranasal DAILY 08/09/21 06/02/24 mcg/actuation nasal spray,suspension (Flonase Allergy Relief) clopidogrel 75 mg tablet (Plavix) 75 mg PO DAILY 01/15/22 06/02/24 amlodipine 10 mg tablet 10 mg PO DAILY 03/11/22 06/02/24 ezetimibe 10 mg tablet 10 mg PO DAILY 07/30/22 06/02/24 furosemide 40 mg tablet 40 mg PO DAILY 04/26/24 06/02/24 hydrocortisone 10 mg tablet 10 mg PO .with dinner 04/26/24 06/02/24 losartan 25 mg tablet 25 mg PO DAILY 05/07/24 06/02/24 acetaminophen 500 mg capsule 500 mg PO TID PRN 05/12/24 06/02/24 hydrocortisone 5 mg tablet 20 mg PO QAM 05/12/24 06/02/24 magnesium oxide 500 mg PO TID 05/17/24 06/02/24 rosuvastatin 40 mg tablet 20 mg PO DAILY 06/02/24 06/02/24 Allergies Allergy/AdvReac Type Severity Reaction Status Date / Time levofloxacin Allergy Unknown unk Verified 06/02/24 13:21 Penicillins Allergy Unknown unk Verified 06/02/24 13:21 [facility] Past Medical History Medical History (Updated 06/03/24 @ 11:03 by Desiree Can MD) Abrasion of ear canal Acute CVA (cerebrovascular accident) Acute dehydration Acute kidney injury Acute on chronic kidney failure Acute on chronic renal failure Acute sinusitis Adrenal insufficiency Anemia Resolved with hemoglobin 14.5, hematocrit 43.4, iron 76 with 28% saturation and ferritin 83 with vitamin B12 685 and folic acid 5.8 on 07/26/2022. hemoglobin 14.1 with iron 65, ferritin 104, vitamin B12 728, folic acid 10.2 On 01/31/2023. At high risk for falls Atrial fibrillation Body mass index (BMI) 45.0-49.9, adult (05/18/19) Bradycardia CAD (coronary artery disease) Candidiasis of other urogenital sites Cerebrovascular accident (CVA) Cholelithiasis 1.2 cm gallstone in the neck of the gallbladder on ultrasound 02/06/2024. Chronic episodic atrial fibrillation Chronic kidney disease (CKD) stage G3b/A1, moderately decreased glomerular filtration rate (GFR) between 30-44 mL/min/1.73 square meter and albuminuria creatinine ratio less than 30 mg/g BUN 37, creatinine 1.62 with GFR 44 on 07/26/2022. BUN 28, creatinine 1.46, GFR 50 on 01/24/2023. Chronic low back pain without sciatica Chronic respiratory failure Close exposure to COVID-19 virus (~04/11/22) exposed to granddaughter and both with COVID. Preventative monoclonal antibody infusion because of risk factors. COVID antibody level positive at 14.9 on 07/26/2022. COPD exacerbation Elevated PSA, less than 10 ng/ml (07/16/22) PSA elevated at 5.45 on 07/26/2022, 1.0 on 09/27/2019. PSA normal 1.3 on 01/24/2023. PSA 0.9 on 02/19/2024. 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
[2024-06-01 16:16] LABS: Alanine Aminotransferase 42 U/L (6-50); Albumin Level 3.8 g/dL (3.5-5.1); Alkaline Phosphatase 332 U/L (38-126); Anion Gap 7 mmol/L (4-12); Aspartate Amino Transferase 59 U/L (17-59); Bilirubin,Total 0.8 mg/dL (0.2-1.3); Blood Urea Nitrogen 34 mg/dL (9-20); CRP 2.9 mg/dL (<1.0); Calcium 8.9 mg/dL (8.4-10.2); Carbon Dioxide 33 mmol/L (22-30); Chloride 99 mmol/L (98-107); Estimated CRCL calculation 45 ml/min; Estimated Glomerular Filt Rate 39; Glucose 102 mg/dL (65-110); Potassium 4.6 mmol/L (3.4-5.0); Sodium 139 mmol/L (137-145)
[2024-06-01 18:13] LABS: Reflex Lactic Acid Yes or No Add Lactic
== END 2024-06-01 17:47 | disposition home or self-care (01) ==
PROVIDERS: Emergency Medicine; Emergency Provider Student in an Organized Health Care Education/Training Program; PCP Family Medicine
DX: S80.12XA Contusion of left lower leg, initial encounter (principal); D53.9 Nutritional anemia, unspecified; I89.0 Lymphedema, not elsewhere classified; E83.19 Other disorders of iron metabolism; I87.2 Venous insufficiency (chronic) (peripheral); I82.812 Embolism and thrombosis of superficial veins of left lower extremity; I48.91 Unspecified atrial fibrillation; I25.10 Atherosclerotic heart disease of native coronary artery without angina pectoris; N18.32 Chronic kidney disease, stage 3b; Z79.899 Other long term (current) drug therapy; Z86.73 Personal history of transient ischemic attack (TIA), and cerebral infarction without residual deficits; Z87.891 Personal history of nicotine dependence; X58.XXXA Exposure to other specified factors, initial encounter
CPT/HCPCS: 36415; 73590; 80053; 83605; 85025; 85610; 85730; 86140; 87040; 87070; 87077; 87147; 87181; 87186; 87205; 93970; 99284

== ENCOUNTER 2024-06-23 12:20 | Outpatient (CLI) | payer MEDICARE, SELFPAY ==
[2024-06-23] VITALS (7 sets, daily range): PULSE 68–96; O2SAT 85–92
--- NOTE | 2024-06-23 13:50 | HOMEO2EVAL ---
Evaluation was performed at [facility] Home Oxygen Evaluation RC: Home Oxygen (O2) Evaluation Start: 06/23/24 13:45 Freq: Status: Active Protocol: RPE Activity Type Activity Date Activity User E-sign Co-sign Detail Recorded Client Recorded Date Recorded By Document 06/23/24 13:00 DJO [email or web address] 06/23/24 13:50 DJO Document 06/23/24 13:05 [email or web address] [email or web address] 06/23/24 13:50 DJO Document 06/23/24 13:10 [email or web address] [email or web address] 06/23/24 13:50 DJO Document 06/23/24 13:15 [email or web address] [email or web address] 06/23/24 13:50 DJO Document 06/23/24 13:20 [email or web address] [email or web address] 06/23/24 13:50 DJO Document 06/23/24 13:25 [email or web address] [email or web address] 06/23/24 13:50 DJO Document 06/23/24 13:40 [email or web address] [email or web address] 06/23/24 13:50 DJO 06/23/24 06/23/24 06/23/24 13:00 13:05 13:10 Home O2 Evaluation [Oxygen] -Test Phase Resting Exercise Exercise -Oxygen Delivery Room Air Nasal Cannula -Oxygen Flow Rate (L/min) 1 [Pulse Oximetry] -Pulse Oximetry (90-100 %) 92 85 L 86 L [Pulse Rate] -Pulse Rate (60-100 beats/min) 68 94 92 [Exercise] -Ambulation Distance (feet) -Ambulation Distance (meters) [Charges] -Evaluation Charges O2 Evaluation by Pulmonary 06/23/24 06/23/24 06/23/24 13:15 13:20 13:25 Home O2 Evaluation [Oxygen] -Test Phase Exercise Exercise Exercise -Oxygen Delivery Nasal Cannula Nasal Cannula Nasal Cannula -Oxygen Flow Rate (L/min) 2 3 4 [Pulse Oximetry] -Pulse Oximetry (90-100 %) 87 L 88 L 90 [Pulse Rate] -Pulse Rate (60-100 beats/min) 93 94 96 [Exercise] -Ambulation Distance (feet) 500 -Ambulation Distance (meters) 152.39 [Charges] -Evaluation Charges 06/23/24 13:40 Home O2 Evaluation [Oxygen] -Test Phase Resting -Oxygen Delivery Room Air -Oxygen Flow Rate (L/min) [Pulse Oximetry] -Pulse Oximetry (90-100 %) 91 [Pulse Rate] -Pulse Rate (60-100 beats/min) 72 [Exercise] -Ambulation Distance (feet) -Ambulation Distance (meters) [Charges] -Evaluation Charges
== END 2024-06-23 12:21 | disposition home or self-care (01) ==
LOC: ANHPFT 12:21
PROVIDERS: PCP Family Medicine; Visit Provider Internal Medicine Critical Care Medicine
DX: Z99.81 Dependence on supplemental oxygen (principal)
CPT/HCPCS: 94618

== ENCOUNTER 2024-07-21 07:22 | Outpatient (RCR) | payer MEDICARE, SELFPAY ==
[2024-06-03 14:21] VITALS: BMI 41.7
--- NOTE | 2024-07-23 14:07 | PCWOUND ---
WOCN NOTE Patient's spouse Annabel contacted office to inform of patient passing away this morning at [facility]. Spouse states he fell yesterday at home and was airlifted to [facility] where he passed. Will discharge account.
== END 2024-08-23 08:29 | disposition home or self-care (01) ==
LOC: ANHWOC 07:22
PROVIDERS: PCP Family Medicine; Visit Provider Family Medicine
DX: Z48.00 Encounter for change or removal of nonsurgical wound dressing (principal); S81.809A Unspecified open wound, unspecified lower leg, initial encounter
CPT/HCPCS: 99213; 99214; 99215; A9270; G0463